=== PATIENT | male | born 1940 | race Caucasian/White ===

== ENCOUNTER 2018-05-03 09:00 | Outpatient (CLI) | payer MEDICARE, BC, SELFPAY | END 2018-05-03 09:01 | PROVIDERS: PCP Family Medicine; Visit Provider Urology | DX: C67.6 Malignant neoplasm of ureteric orifice (principal); C68.9 Malignant neoplasm of urinary organ, unspecified | CPT/HCPCS: 51720; 81003; J9031 ==

== ENCOUNTER 2018-05-10 08:00 | Outpatient (CLI) | payer MEDICARE, BC, SELFPAY | END 2018-05-10 08:01 | PROVIDERS: PCP Family Medicine; Visit Provider Urology | DX: C67.6 Malignant neoplasm of ureteric orifice (principal); N30.00 Acute cystitis without hematuria | CPT/HCPCS: 81001; 99212 ==

== ENCOUNTER 2018-05-17 08:00 | Outpatient (CLI) | payer MEDICARE, BC, SELFPAY | END 2018-05-17 08:01 | PROVIDERS: PCP Family Medicine; Visit Provider Urology | DX: R35.0 Frequency of micturition (principal); R39.15 Urgency of urination; C67.6 Malignant neoplasm of ureteric orifice | CPT/HCPCS: 51701; 51720; 81003; 99212 ==

== ENCOUNTER 2018-05-23 08:30 | Outpatient (CLI) | payer MEDICARE, BC, SELFPAY | END 2018-05-23 08:31 | PROVIDERS: PCP Family Medicine; Visit Provider Nurse Practitioner Gerontology | DX: C67.6 Malignant neoplasm of ureteric orifice (principal); R39.15 Urgency of urination | CPT/HCPCS: 51720; 81003; 99213 ==

== ENCOUNTER 2018-06-11 11:25 | Outpatient (REF) | payer MEDICARE, BC, SELFPAY | END 2018-06-11 11:45 | LOC: LBN 11:25 | PROVIDERS: PCP Family Medicine; Visit Provider Urology | DX: R30.0 Dysuria (principal) | CPT/HCPCS: 87086 ==

== ENCOUNTER → 2018-06-20 11:35 | Outpatient (BNVA) | payer MEDICARE, BC, SELFPAY | PROVIDERS: PCP Family Medicine; Visit Provider Urology | DX: R35.0 Frequency of micturition (principal) | CPT/HCPCS: 51798; 81001; 99213 ==

== ENCOUNTER 2018-06-20 13:18 | Outpatient (REF) | payer MEDICARE, BC, SELFPAY | END 2018-06-20 13:38 | LOC: LBN 13:18 | PROVIDERS: PCP Family Medicine; Visit Provider Urology | DX: R35.0 Frequency of micturition (principal) | CPT/HCPCS: 87086 ==

== ENCOUNTER → 2018-07-19 08:36 | Outpatient (BNVA) | payer MEDICARE, BC, SELFPAY | PROVIDERS: PCP Family Medicine; Visit Provider Urology | DX: C67.6 Malignant neoplasm of ureteric orifice (principal) | CPT/HCPCS: 52000; 99213 ==

== ENCOUNTER → 2018-08-27 09:20 | Outpatient (BNVA) | payer MEDICARE, BC, SELFPAY | PROVIDERS: PCP Family Medicine; Visit Provider Urology | DX: C67.6 Malignant neoplasm of ureteric orifice (principal) | CPT/HCPCS: 51720; 81003; 99212; 99213; J9031 ==

== ENCOUNTER → 2018-09-03 08:27 | Outpatient (BNVA) | payer MEDICARE, BC, SELFPAY | PROVIDERS: PCP Family Medicine; Visit Provider Urology | DX: N39.0 Urinary tract infection, site not specified (principal); C67.6 Malignant neoplasm of ureteric orifice; R88.8 Abnormal findings in other body fluids and substances; Z53.8 Procedure and treatment not carried out for other reasons | CPT/HCPCS: 81003; 99212; 99213 ==

== ENCOUNTER 2018-09-03 13:19 | Outpatient (REF) | payer MEDICARE, BC, SELFPAY | END 2018-09-03 13:39 | LOC: LBN 13:19 | PROVIDERS: PCP Family Medicine; Visit Provider Urology | DX: N39.0 Urinary tract infection, site not specified (principal) | CPT/HCPCS: 87077; 87086; 87186 ==

== ENCOUNTER → 2018-09-10 08:04 | Outpatient (BNVA) | payer MEDICARE, BC, SELFPAY | PROVIDERS: PCP Family Medicine; Visit Provider Urology | DX: C67.6 Malignant neoplasm of ureteric orifice (principal) | CPT/HCPCS: 51720; 81003; 99212; 99213; J9031 ==

== ENCOUNTER 2018-09-17 13:27 | Outpatient (CLI) | payer MEDICARE, BC, SELFPAY | END 2018-09-17 13:47 | PROVIDERS: PCP Family Medicine; Visit Provider Urology | DX: C67.6 Malignant neoplasm of ureteric orifice (principal) | CPT/HCPCS: 51720; 81003; 99212; 99213; J9031 ==

== ENCOUNTER → 2019-03-06 13:36 | Outpatient (BNVA) | payer MEDICARE, BC, SELFPAY | PROVIDERS: PCP Family Medicine; Visit Provider Urology | DX: C67.6 Malignant neoplasm of ureteric orifice (principal); I10 Essential (primary) hypertension | CPT/HCPCS: 52000; 99212 ==

== ENCOUNTER 2019-03-12 07:11 | Outpatient (CLI) | payer MEDICARE, BC, SELFPAY | END 2019-03-12 07:31 | PROVIDERS: PCP Family Medicine; Visit Provider Urology | DX: N30.00 Acute cystitis without hematuria (principal); C67.6 Malignant neoplasm of ureteric orifice; R35.0 Frequency of micturition | CPT/HCPCS: 87077; 87086; 87186 ==

== ENCOUNTER 2019-04-07 08:57 | Day surgery (SDC) | payer MEDICARE, BC, SELFPAY ==
[2019-04-07 09:14] VITALS: BP 152/90; PULSE 66; RESP 18; TEMP 36.3; O2SAT 99
[2019-04-07] MEDS: Lactated Ringers 1,000 ML 80 ML IV (09:45)
--- NOTE | 2019-04-07 09:50 | W.PM.HP.N ---
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 History of Present Illness Chief Complaint: Bladder cancer Narrative: This is a 78-year-old gentleman who was initially seen for urinary retention. He underwent a transurethral resection of the prostate. He was able to void well after the procedure. The preop hydronephrosis resolved. He then developed gross hematuria about a year later. 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 He was treated with a transurethral resection followed by intravesical BCG. He is now followed with surveillance cystoscopies. On his most recent cystoscopy in the office we did find a recurrence at the bladder neck. He comes in to have this area resected. He is not having any gross hematuria. He has no retention. Review of Systems Review of Systems No fevers or chills No vision change or dysphasia No diabetes or thyroid dysfunction No shortness of breath, cough or hemoptysis No chest pain or palpitations No nausea, vomiting, hepatitis, ulcers, jaundice, diarrhea or constipation No seizures, strokes or peripheral neuropathy No bleeding disorders or anemia No gout PFSH Family History Other Diabetes Heart disease Lupus Social History Smoking/Tobacco Use Status: Former Tobacco Use Quit Date: 10/01/88 Alcohol Intake: current Alcohol Intake frequency: 0-2 drinks per day Alcohol type: wine and hard liquor Drug use: Never Substance use type: does not use Details: alcohol: t-1, 5164 wine Do you feel safe at home: Yes Do you feel safe in your relationship?: Yes Meds Home Medications Medication Instructions Recorded Confirmed Type atenolol 50 mg PO DAILY tab-cap 03/10/16 04/07/19 History atorvastatin 40 mg PO DAILY tab-cap 03/10/16 04/07/19 History sertraline 50 mg PO DAILY tab-cap 04/13/16 04/07/19 History cholecalciferol (vitamin D3) 1,000 unit PO DAILY 05/01/17 04/07/19 History ibuprofen 400 mg PO PRN PRN 05/01/17 04/07/19 History aspirin 81 mg PO DAILY tab-cap 05/23/18 04/07/19 History yrrmfhmg-xouzj-mxw 2-C-D3-earnestine 1 ea PO DAILY 05/23/18 04/07/19 History [Clwbuxrgvi-Ghzpjvgwnjd-Mpm Tab] meloxicam 15 mg PO DAILY 03/31/19 04/07/19 History acetaminophen [Tylenol Arthritis 1,300 mg PO ONCE 04/07/19 04/07/19 History Pain] Allergies Allergy/AdvReac Type Severity Reaction Status Date / Time lisinopril AdvReac Other (See Verified 04/07/19 09:09 Comment) Exam Narrative Exam Narrative: He is in no current distress. He is cooperative. He does not appear septic or toxic. His vital signs are documented elsewhere in the chart. His neck is supple His lungs are clear Cardiac regular rate and rhythm with no murmurs His abdomen is soft with no guarding or rebound tenderness He has no edema in the lower extremities He is awake, alert and oriented Results Last Vital Signs Temp 36.3 C L 04/07/19 09:14 Pulse 66 04/07/19 09:14 Resp 18 04/07/19 09:14 BP 152/90 H 04/07/19 09:14 Pulse Ox 99 04/07/19 09:14
--- NOTE | 2019-04-07 09:54 | HPE_ITS ---
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 History of Present Illness Chief Complaint: Bladder cancer Narrative: This is a 78-year-old gentleman who was initially seen for urinary retention. He underwent a transurethral resection of the prostate. He was able to void well after the procedure. The preop hydronephrosis resolved. He then developed gross hematuria about a year later. 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 He was treated with a transurethral resection followed by intravesical BCG. He is now followed with surveillance cystoscopies. On his most recent cystoscopy in the office we did find a recurrence at the bladder neck. He comes in to have this area resected. He is not having any gross hematuria. He has no retention. Review of Systems Review of Systems No fevers or chills No vision change or dysphasia No diabetes or thyroid dysfunction No shortness of breath, cough or hemoptysis No chest pain or palpitations No nausea, vomiting, hepatitis, ulcers, jaundice, diarrhea or constipation No seizures, strokes or peripheral neuropathy No bleeding disorders or anemia No gout PFSH Family History Other Diabetes Heart disease Lupus Social History Smoking/Tobacco Use Status: Former Tobacco Use Quit Date: 10/01/88 Alcohol Intake: current Alcohol Intake frequency: 0-2 drinks per day Alcohol type: wine and hard liquor Drug use: Never Substance use type: does not use Details: alcohol: t-1, 0204 wine Do you feel safe at home: Yes Do you feel safe in your relationship?: Yes Meds Home Medications Medication Instructions Recorded Confirmed Type atenolol 50 mg PO DAILY tab-cap 03/10/16 04/07/19 History atorvastatin 40 mg PO DAILY tab-cap 03/10/16 04/07/19 History sertraline 50 mg PO DAILY tab-cap 04/13/16 04/07/19 History cholecalciferol (vitamin D3) 1,000 unit PO DAILY 05/01/17 04/07/19 History ibuprofen 400 mg PO PRN PRN 05/01/17 04/07/19 History aspirin 81 mg PO DAILY tab-cap 05/23/18 04/07/19 History swbjnrps-cbwxv-wgc 2-C-D3-earnestine 1 ea PO DAILY 05/23/18 04/07/19 History [Cfhvrhbwby-Tgjdxvktjse-Vxs Tab] meloxicam 15 mg PO DAILY 03/31/19 04/07/19 History acetaminophen [Tylenol Arthritis 1,300 mg PO ONCE 04/07/19 04/07/19 History Pain] Allergies Allergy/AdvReac Type Severity Reaction Status Date / Time lisinopril AdvReac Other (See Verified 04/07/19 09:09 Comment) Exam Narrative Exam Narrative: He is in no current distress. He is cooperative. He does not appear septic or toxic. His vital signs are documented elsewhere in the chart. His neck is supple His lungs are clear Cardiac regular rate and rhythm with no murmurs His abdomen is soft with no guarding or rebound tenderness He has no edema in the lower extremities He is awake, alert and oriented Results Last Vital Signs Temp 36.3 C L 04/07/19 09:14 Pulse 66 04/07/19 09:14 Resp 18 04/07/19 09:14 BP 152/90 H 04/07/19 09:14 Pulse Ox 99 04/07/19 09:14
--- NOTE | 2019-04-07 10:04 | W.PM.DSUDISC ---
Discharge Plan Disposition Patient Disposition: HOME Condition: Stable Discharge Details Reason For Visit: surgery Attending Provider: Hector Rodriguez Primary Care Provider: Chapo Menon Home Meds and New Rx's Prescriptions: No Action ciprofloxacin HCl 500 mg tablet 500 mg PO Q12H Qty: 20 RF: 0 atorvastatin 40 MG tablet 40 mg PO DAILY RF: 0 atenolol 25 MG tablet 50 mg PO DAILY RF: 0 sertraline 50 MG tablet 50 mg PO DAILY RF: 0 aspirin 81 MG tablet,chewable 81 mg PO DAILY RF: 0 Kqvwivgb-Nparei-KTS with vit D 1 EACH tablet 1 ea PO DAILY RF: 0 ibuprofen 200 MG tablet 400 mg PO PRN PRNRF: 0 cholecalciferol (vitamin D3) 1,000 UNIT tablet 1,000 unit PO DAILY RF: 0 meloxicam 15 mg Tablet 15 mg PO DAILY RF: 0 acetaminophen [Tylenol Arthritis Pain] 650 mg Tablet Extended Release 1,300 mg PO ONCE RF: 0 Discharge Instructions Additional Instructions: no F/U appt to schedule but ask pt to call us in @ 1 week to review pathology results - his F/U appt timing will depend on pathology script for Cipro sent to pharmacy - ask pt to take for 2 days post procedure pt must void prior to discharge Activity:: Activity as Tolerated Shower/Bathe:: 24 hours Diet:: As Tolerated Discharge Orders Discharge Orders: Discharge Order (Routine); Ordered 04/07/19 Ordered By: Hector Rodriguez DS: Diagnosis Discharge Diagnosis (1) 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
[2019-04-07] MEDS: ceFAZolin 1 GM/50 ML BAG IVPB (10:19)
[2019-04-07] MEDS: Lidocaine 2% Jelly 6 ML SYR (10:41)
--- NOTE | 2019-04-07 10:47 | BLADDER_PTH ---
PATIENT: Danny Piper LOC: [facility] U#:[id number] AGE/SX: 78/M ROOM: RE04/07/[address]: Hector Rodriguez MD : 1940 BED: DIS: 04/07/2019 SPEC #: [id number] RECD: 04/07/19 12:44 STATUS: YOLIS REQ #: [id number] LARISA: 04/07/19 10:[address]: Hector Rodriguez DEPT: Surgical Specimen RECD BY: Leny Chowdhury ENTERED: 04/07/19 12:46 SP TYPE: Bladder OTHR DR: Chapo Menon Tissues: 1 - URETHRA BIOPSY 2 - BLADDER CURRETTINGS Procedures: GROSS AND MICRO LEVEL 4 Comments: [id number]
[2019-04-07 11:11] VITALS: BP 153/72; PULSE 64; RESP 13; TEMP 36.1; O2SAT 98
[2019-04-07 11:16] VITALS: BP 162/72; PULSE 65; RESP 13; TEMP 36.2; O2SAT 97
[2019-04-07 11:21] VITALS: BP 162/75; PULSE 69; RESP 13; TEMP 36.2; O2SAT 97
[2019-04-07 11:36] VITALS: BP 166/85; PULSE 69; RESP 13; TEMP 36.2; O2SAT 98
[2019-04-07] MEDS: Phenazopyridine 200 MG TAB PO (11:57)
[2019-04-07 12:16] VITALS: BP 156/86; PULSE 63; RESP 16; TEMP 35.7; O2SAT 100
--- NOTE | 2019-04-07 12:48 | ROE_ITS ---
DATE OF PROCEDURE: April 07, 2019 PREOPERATIVE DIAGNOSIS: Bladder tumor. POSTOPERATIVE DIAGNOSIS: Same with pathology pending. PROCEDURE: Cystoscopy; biopsy of urethral lesion; fulguration of urethral lesion; transurethral rese ction of prostate and bladder lesions. SURGEON: Hector Rodriguez M.D. ANESTHESIA: General. COMPLICATIONS: None. ESTIMATED BLOOD LOSS: Minimal. SPECIMENS: 1. Urethral lesion. 2. Bladder/prostate lesion. HISTORY: This is a 78-year-old gentleman who initially presented with urinary retention and obstruct jose uropathy. He underwent a transurethral resection of the prostate and his voiding symptoms improv ed. He then returned with gross hematuria about a year later. He was identified as having a high-grade, noninvasive urothelial cell carcinoma of the bladder. He underwent intravesical BCG treatment. He i s followed with surveillance cystoscopies. On his most-recent cystoscopy we identified a small papillary lesion at the bladder neck. He present s now for transurethral resection. OPERATIVE REPORT: The patient was brought to the Operating Room on 04/07/19. After successful inducti on of general anesthesia, he was placed in the dorsal lithotomy position. His genitalia was prepped and draped. 2% Xylocaine jelly was instilled into the urethra to act as a local anesthetic. A 22 [place] rigid cystoscope was passed through the urethra toward the bladder. In the region of the membranous urethra, a papillary lesion was identified. This had an appearance worrisome for urothel ial cell carcinoma. We biopsied the area with cold cut biopsy forceps, then fulgurated the area with a bipolar Bugbee. We then advanced the cystoscope through the remainder of the urethra into the bladder. There appeare d to be papillary mucosa on the prostatic urethra, especially on the left side of the prostate. Just inside the bladder neck at the 5 o'clock position was a small papillary lesion as well. We then removed the cystoscope and introduced a 24 [place] resectoscope sheath. We used an [employer] r esectoscope and bipolar cautery to resect the visible papillary lesion at the bladder and prostate. Both the bladder and prostate tissue were sent to Pathology in one specimen. The base of the resection site was cauterized using the coagulation current. The patient tolerated t his procedure well with no complications. His follow-up will depend on his surgical pathology. cc: Chapo Menon M.D.
--- NOTE | 2019-04-07 14:57 | NUR.NOTE ---
Nursing Note: 1455: Pt. called [facility], spoke to REENA Woods. Pt. reports he was re-ended on his way home and states his back is sore, pt. asking if he can take oxycodone from a prior procedure for the pain. Nursing instructed pt. to go to ER, pt. refused, stating it was not necessary. Nursing explained they are not qualified to advise him about the pain medication. Pt. agreeable to phone call being transferred to [facility] where he could speak to urology. Nursing called up to clinic, spoke to Dayana, who stated she would speak with pt. Call transferred to clinic.
== END 2019-04-07 12:39 | disposition home or self-care (01) ==
PROVIDERS: PCP Family Medicine; Visit Provider Urology
PROC: 0TBB8ZX Excision of Bladder, Via Natural or Artificial Opening Endoscopic, Diagnostic (ICD-10-PCS; CPT 52204; principal; 2019-04-07 10:00)
DX: C68.0 Malignant neoplasm of urethra (principal); C67.5 Malignant neoplasm of bladder neck; I10 Essential (primary) hypertension; I49.9 Cardiac arrhythmia, unspecified
CPT/HCPCS: 52224; 52500; 88305; NC; 88307; 93005; 93010; J0690; J1100; J1885; J2405; J3010

== ENCOUNTER → 2019-07-24 13:08 | Outpatient (BNVA) | payer MEDICARE, BC, SELFPAY | PROVIDERS: PCP Family Medicine; Referring Provider Family Medicine; Visit Provider Urology | DX: N36.9 Urethral disorder, unspecified (principal) | CPT/HCPCS: 81003; 99212 ==

== ENCOUNTER → 2019-09-16 08:16 | Outpatient (BNVA) | payer MEDICARE, BC, SELFPAY | PROVIDERS: PCP Family Medicine; Referring Provider Family Medicine; Visit Provider Urology | DX: C67.6 Malignant neoplasm of ureteric orifice (principal); N36.9 Urethral disorder, unspecified; I10 Essential (primary) hypertension | CPT/HCPCS: 52000; 99213 ==

== ENCOUNTER 2019-09-18 08:08 | Day surgery (SDC) | payer MEDICARE, BC, SELFPAY ==
[2019-09-18 08:27] VITALS: BP 136/79; PULSE 65; RESP 16; TEMP 36.6; O2SAT 96
[2019-09-18] MEDS: Lactated Ringers 1,000 ML 80 ML IV (09:01)
--- NOTE | 2019-09-18 10:41 | W.PM.HP.N ---
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 He has had intravesical BCG in the past. He had a surveillance cystoscopy in the office and we detected papillary lesions by the right ureteral orifice, on the anterior portion of the prostate and in the urethra. he presents for TURBT. He has had some bloody spotting on his undershorts. Review of Systems Narrative: No fevers or chills No vision change or dysphasia No thyroid dysfunction No shortness of breath, cough or hemoptysis No chest pain or palpitations No nausea, vomiting, hepatitis, ulcers, jaundice, diarrhea or constipation No seizures, strokes or peripheral neuropathy No bleeding disorders or anemia No gout PFSH Surgical History (Updated 09/18/19 @ 08:24 by Nataliia Cosme RN) History of arthroscopy of knee (Acute) bilat History of cardiac catheterization (Chronic) History of cataract surgery (Chronic) History of colonoscopy (Chronic) History of tonsillectomy (Chronic) & adnoids x2, then burnt out with [place]. Social History (Updated 07/19/18 @ 08:49 by Dayana Christine RN) Smoking/Tobacco Use Status: Former Tobacco Use Quit Date: 10/01/88 Alcohol Intake: current Alcohol Intake frequency: 0-2 drinks per day Alcohol type: wine and hard liquor Drug use: Never Substance use type: does not use Details: tried Hemp oil, Pt states wasn't helpful. Do you feel safe at home: Yes Do you feel safe in your relationship?: Yes Meds Home Medications and Allergies Home Medications Medication Instructions Recorded Confirmed Type atenolol 50 mg PO DAILY tab-cap 03/10/16 09/18/19 History atorvastatin 40 mg PO DAILY tab-cap 03/10/16 09/18/19 History sertraline 50 mg PO DAILY tab-cap 04/13/16 09/18/19 History meloxicam 15 mg PO DAILY 03/31/19 09/18/19 History acetaminophen [Tylenol Arthritis 1,300 mg PO ONCE 04/07/19 09/18/19 History Pain] Allergies Allergy/AdvReac Type Severity Reaction Status Date / Time lisinopril AdvReac Other (See Verified 09/18/19 08:23 Comment) Exam Const General: cooperative and comfortable Neck Neck: supple Resp Auscultation: clear to auscultation bilaterally Cardio Rate: regular rate Rhythm: regular rhythm GI Inspection: normal to inspection Palpation: soft and no masses Extrem General: no pedal edema Results Last Vital Signs Temp 36.6 C 09/18/19 08:27 Pulse 65 09/18/19 08:27 Resp 16 09/18/19 08:27 BP 136/79 09/18/19 08:27 Pulse Ox 96 09/18/19 08:27
[2019-09-18] MEDS: ceFAZolin 2 GM/50 ML BAG IVPB (11:06)
[2019-09-18] MEDS: Lidocaine 2% Jelly 6 ML SYR (11:20)
--- NOTE | 2019-09-18 11:30 | BLADDER_PTH ---
PATIENT: Danny Piper LOC: [facility] U#:[id number] AGE/SX: 78/M ROOM: RE09/18/[address]: Hector Rodriguez MD : 1940 BED: DIS: 09/18/2019 SPEC #: [id number] RECD: 09/18/19 13:09 STATUS: YOLIS REQ #: [id number] LARISA: 09/18/19 11:[address]: Hector Rodriguez DEPT: Surgical Specimen RECD BY: Leny Chowdhury ENTERED: 09/18/19 13:10 SP TYPE: Bladder OTHR DR: Chapo Menon Tissues: 1 - BLADDER CURRETTINGS 2 - URETHRA BIOPSY 3 - URETHRA BIOPSY Procedures: IMMUNOPEROXIDASE STAIN GROSS AND MICRO LEVEL 5 Comments: [id number]
--- NOTE | 2019-09-18 11:54 | PDOC.DSDIS_ITS ---
Discharge Plan Disposition Patient Disposition: HOME Condition: Stable Discharge Details Attending Provider: Hector Rodriguez Primary Care Provider: Chapo Menon Home Meds and New Rx's Prescriptions: New ciprofloxacin HCl 250 mg tablet 250 mg PO Q12H Qty: 10 RF: 0 tramadol 50 mg tablet 50 mg PO Q8H PRN (Reason: pain) Qty: 10 RF: 0 No Action atorvastatin 40 MG tablet 40 mg PO DAILY RF: 0 atenolol 25 MG tablet 50 mg PO DAILY RF: 0 sertraline 50 MG tablet 50 mg PO DAILY RF: 0 meloxicam 15 mg Tablet 15 mg PO DAILY RF: 0 acetaminophen [Tylenol Arthritis Pain] 650 mg Tablet Extended Release 1,300 mg PO ONCE RF: 0 Discharge Instructions Additional Instructions: grier to leg bag - inform pt he may see bloody drainage around catheter as his urethra heals f/u for catheter removal in 5 to 7 days Pt is going to [place] toward the end of next week, so he will call us for his pathology results Activity:: Activity as Tolerated Shower/Bathe:: 24 hours Diet:: As Tolerated Discharge Orders Discharge Orders: Discharge Order (Routine); Ordered 09/18/19 Ordered By: Hector Rodriguez DS: Diagnosis Discharge Diagnosis (1) 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
[2019-09-18 12:25] VITALS: BP 146/85; PULSE 57; RESP 16; TEMP 35.9; O2SAT 57
[2019-09-18] MEDS: Phenazopyridine 200 MG TAB PO (12:41)
[2019-09-18 13:00] VITALS: BP 137/80; PULSE 55; RESP 16; TEMP 36.6; O2SAT 99
--- NOTE | 2019-09-19 08:15 | ROE_ITS ---
DATE OF PROCEDURE September 18, 2019 PREOPERATIVE DIAGNOSES 1. Bladder cancer. 2. Prostate lesion. 3. Urethral lesion. POSTOPERATIVE DIAGNOSES 1. Bladder cancer. 2. Prostate lesion. 3. Urethral lesion. PROCEDURES 1. Cystoscopy, transurethral resection of bladder tumor (2 to 5 cm). 2. Transurethral resection of prostate lesion. 3. Transurethral resection of urethral lesion. SURGEON Hector Rodriguez M.D. ANESTHESIA General. COMPLICATIONS None. ESTIMATED BLOOD LOSS Minimal. HISTORY This is a 78-year-old gentleman who has a history of high grade noninvasive urothelial cell carcinoma of the bladder. He was treated with transurethral resection, but has also received intravesical BCG therapy. On recent cystoscopy, he was found to have recurrent lesions on the right isaiah-trigone on the anterio r aspect of the prostate and in the membranous urethra. He presents now for cystoscopy with transuret hral resection. OPERATIVE REPORT: The patient was brought to the Operating Room on 09/18/19. After successful induction of general ane sthesia, he was placed in the dorsal lithotomy position. His genitalia was prepped and draped. A #24 Wol[place] resectoscope sheath was passed through the urethra into the bladder. The bladder was ins pected with a 30-degree lens. Multiple papillary lesions were seen on the right isaiah trigone. These areas were resected using bipol ar cautery. All resected tissue was evacuated and sent to Pathology for permanent section. We then withdrew the scope into the prostatic urethra. The previously identified papillary lesion on the anterior aspect of the prosthetic urethra was likewise resected using bipolar cautery. These spec imens were sent separately to Pathology for permanent section. The resectoscope was then withdrawn into the membranous urethra. The papillary lesion was again visua lized. This lesion was resected. The specimens were evacuated and sent separately as a third specimen for Pathology. No active bleeding was seen at the completion of the procedure, but in an effort to allow his urethra to heal appropriately, we placed a #20-Wolof [place] tip catheter over a Glidewire. We advanced the catheter through the urethra into the bladder and inflated the catheter balloon with 10 cc of steril e water. The wire was removed. The catheter was hooked to gravity drainage. The patient tolerated this procedure well with no complications. cc: Chapo Menon M.D.
== END 2019-09-18 14:00 | disposition home or self-care (01) ==
PROVIDERS: PCP Family Medicine; Visit Provider Urology
PROC: 0TBB8ZZ Excision of Bladder, Via Natural or Artificial Opening Endoscopic (ICD-10-PCS; CPT 52235; principal; 2019-09-18 10:45)
DX: C67.6 Malignant neoplasm of ureteric orifice (principal); N36.9 Urethral disorder, unspecified; C61 Malignant neoplasm of prostate; C68.0 Malignant neoplasm of urethra
CPT/HCPCS: 52235; 53200; 88305; NC; 88307; 88361; J0690

== ENCOUNTER → 2019-09-25 08:41 | Outpatient (BNVA) | payer MEDICARE, BC, SELFPAY | PROVIDERS: PCP Family Medicine; Referring Provider Family Medicine; Visit Provider Urology | DX: Z46.6 Encounter for fitting and adjustment of urinary device (principal); C67.6 Malignant neoplasm of ureteric orifice; N36.9 Urethral disorder, unspecified | CPT/HCPCS: 99211 ==

== ENCOUNTER 2021-04-15 03:46 | Outpatient (CLI) | payer MEDICARE, BC, SELFPAY ==
[2021-04-15 09:07] LABS: Abs Immature Grans 0.04 10^3/uL (0.0-0.06); Absolute Basophil Count 0.06 10^3/uL (0.0-0.2); Absolute Eosinophil Count 0.25 10^3/uL (0.0-0.7); Absolute Lymphocyte Count 1.81 10^3/uL (1.2-3.4); Absolute Monocyte Count 0.76 10^3/uL (0.1-0.8); Absolute Neutrophil Count 6.59 10^3/uL (1.2-6.7); Basophils % 0.6; Eosinophils % 2.6; HCT 31.8 % (40.0-50.0); HGB 10.7 g/dL (13.5-17.5); Immature Grans % 0.4; MCH 32.9 pg (27.0-33.0); MCHC 33.6 % (32.0-36.0); MCV 97.8 fL (80-95); MPV 8.2 fL (8.0-11.0); Neutrophils % 69.4; Nucleated RBC 0 %; Platelet Count 237 10^3/uL (130-400); RBC 3.25 10^6/uL (4.36-5.78); RDW 12.8 % (11.8-14.1); RDW-SD 45.6 fL; WBC 9.51 10^3/uL (4.4-10.8)
[2021-04-15 09:21] LABS: ALT 30 U/L (16-63); AST 22 U/L (15-37); Albumin 3.1 g/dL (3.4-5.0); Alkaline Phosphatase 95 U/L (46-116); Anion Gap 10.1 mmol/L (3-11); BUN 32 mg/dL (7-18); Bilirubin, Total 0.6 mg/dL (0.2-1.0); CO2 24.9 mmol/L (21.0-32.0); CREATININE 1.2 mg/dL (0.70-1.30); Calcium 9.6 mg/dL (8.5-10.1); Chloride 104 mmol/L (98-107); Estimated GFR 58.56 (mL/min/1.73m2); Glucose 125 mg/dL (74-106); PHOSPHORUS 3.5 mg/dL (2.6-4.7); Potassium 4.1 mmol/L (3.5-5.1); Sodium 139 mmol/L (136-145); Total Protein 7.3 g/dL (6.4-8.2)
[2021-04-15 09:32] LABS: Diff Comment Diff Reviewed; Microcytosis 2+
== END 2021-04-15 03:47 | disposition home or self-care (01) ==
LOC: LBO 03:57
PROVIDERS: PCP Family Medicine; Visit Provider Internal Medicine
DX: C79.19 Secondary malignant neoplasm of other urinary organs (principal); Z79.899 Other long term (current) drug therapy
CPT/HCPCS: 36415; 80053; 84100; 85025

== ENCOUNTER 2021-05-13 03:12 | Outpatient (CLI) | payer MEDICARE, BC, SELFPAY ==
[2021-05-13 08:54] LABS: Abs Immature Grans 0.02 10^3/uL (0.0-0.06); Absolute Basophil Count 0.08 10^3/uL (0.0-0.2); Absolute Eosinophil Count 0.56 10^3/uL (0.0-0.7); Absolute Lymphocyte Count 1.85 10^3/uL (1.2-3.4); Absolute Monocyte Count 0.68 10^3/uL (0.1-0.8); Eosinophils % 7.3; HGB 10.5 g/dL (13.5-17.5); Immature Grans % 0.3; Lymphocytes % 24.1; MCHC 32.8 % (32.0-36.0); MCV 97.6 fL (80-95); Monocytes % 8.8; Neutrophils % 58.5; Nucleated RBC 0 %; Platelet Count 185 10^3/uL (130-400); RBC 3.28 10^6/uL (4.36-5.78); RDW 12.4 % (11.8-14.1); WBC 7.69 10^3/uL (4.4-10.8)
[2021-05-13 09:08] LABS: ALT 29 U/L (16-63); AST 24 U/L (15-37); Albumin 3.3 g/dL (3.4-5.0); Alkaline Phosphatase 84 U/L (46-116); Anion Gap 5.7 mmol/L (3-11); BUN 19 mg/dL (7-18); Bilirubin, Total 0.6 mg/dL (0.2-1.0); CO2 28.3 mmol/L (21.0-32.0); CREATININE 1.2 mg/dL (0.70-1.30); Calcium 9.1 mg/dL (8.5-10.1); Chloride 106 mmol/L (98-107); Estimated GFR 58.56 (mL/min/1.73m2); Glucose 111 mg/dL (74-106); PHOSPHORUS 5.6 mg/dL (2.6-4.7); Sodium 140 mmol/L (136-145); Total Protein 7.3 g/dL (6.4-8.2)
--- NOTE | 2021-05-13 10:00 | DI.CT_ITS ---
Exam(s) CT CHEST/ABD/PEL W EXAM: CT CHEST/ABD/PEL W CLINICAL HISTORY: METASTATIC UROTHELIAL CA, C79.10,RESTAGING EXAM TECHNIQUE: Imaging Protocol: Axial computed tomography images with coronal and sagittal reformatted images were created and reviewed CONTRAST MATERIAL: Intravenous: Omnipaque 350 Contrast volume:100 mL Oral: Yes COMPARISON: CT CT Guided DrainageCath Placement from 04/20/[address] TAP w Cont Mdspqx-Mxm-Bolwzw from 02/15/[address] TAP w Cont Humocn-Wnn-Yzhvjx from 02/15/2021 FINDINGS: CHEST: Tracheobronchial tree: Patent where visualized. Pulmonary parenchyma: No focal consolidation. There is a calcified granuloma again seen in the right upper lobe. There again seen noncalcified pulmonary nodules. There has been interval increase in size of 2 of the lesions in the right lower lobe since the prior examination. Dependent atelectasis is se en in the lungs. No architectural distortion. Visualized thyroid gland: Unremarkable. Mediastinum and [place]: No dominant adenopathy or fluid collection. Pleura: No effusion or pneumothorax. Heart: The heart is not dilated. Moderate coronary artery calcification. No pericardial effusion. Aorta: Thoracic aorta non-dilated. Moderate atherosclerosis. Lymph nodes: Within normal limits. Soft tissues: Unremarkable. Bones:Degenerative changes in the spine. ABDOMEN: Liver: Normal density. No measurable mass. Portal, Superior Mesenteric, and Splenic Veins: Unremarkable. Gallbladder and Biliary Tract: No radiodense calculus or dilation. Pancreas: Normal density, no abnormal calcifications or inflammatory process. Spleen: Normal. Adrenals: No masses seen. Kidneys: Normal size, contour and axis. No radiodense stones or obstructive uropathy. There are tiny hypodensities in the left kidney which are too small for further characterization, but likely reflect small cysts. Abdominal Aorta: Abdominal portion non-dilated. Moderate atherosclerosis. Bowel: No obstruction or bowel wall thickening. No evidence of appendicitis. Peritoneal Cavity: No ascites, collection or mesenteric inflammatory response. No free air. Lymph Nodes/soft tissues: Since the prior examination several masses have developed in the left ingui nal region. The largest measures 5.3 transverse by 5 cm AP there is a central area of decreased atte nuation which may represent necrosis. Eight 2 x 1.8 cm peripherally enhancing mass is seen within th e left tensor fascia april muscle. Three masses have developed in the right sartorius muscle. Larges t and most superior measures 2.3 x 3 cm. The fluid collection in the left inguinal region previously measuring 3.4 x 3.4 cm has slightly increased in size measuring 3.6 x 3.7 cm. Bones: Moderately severe degenerative changes are present throughout the lumbar spine. The bones jamee ears stable compared to the prior examination no acute fracture or subluxation there is a stable area of sclerosis involving the left inferior pubic ramus. Soft Tissues: Please see the above section on lymph nodes. The fluid collection anterior to the symp hysis pubis has shown interval increase in size currently measuring 3.1 x 2.7 cm. This compares with 2.3 x 2.1 cm. PELVIS: Bladder: Status post cystectomy. Patient has a ileal conduit in the right lower quadrant. Reproductive Organs: The patient appears to be status post prostatectomy. Lymph Nodes: Please see the above section. Bones: Please see the above section. IMPRESSION: 1. Interval development of multiple enhancing masses in the left inguinal region including the or joce rounding musculature. Differential considerations include metastases, adenopathy or hematomas. 2. Interval increase in size of 2 fluid collections in the soft tissues. One in the left inguinal reg ion and the 2nd anterior to the symphysis pubis. These may represent metastases, abscesses or hematom as. 3. Status post cystectomy and prostatectomy. Right lower quadrant ileal conduit. 4. Interval increase in size of pulmonary nodules. RADIATION DOSE DELIVERED: 1,981.88mGy.cm Total DLP DATA REPOSITORY: All CT scans at this facility are submitted to the National Radiology Data Registry (NRDR) Dose Index Registry (DIR) with the [employer] (A[employer]). RADIATION OPTIMIZATION: All CT scans at this facility use at least one of these dose optimization te chniques: automated exposure control; mA and/or kV adjustment per patient size (includes targeted exa ms where dose is matched to clinical indication); or iterative reconstruction.
[2021-05-13] MEDS: Omnipaque 350 MG/ML 100 ML BTL IJ (10:21)
[2021-05-13] MEDS: Breeza Beverage 473 ML BTL PO ×2 (10:22→10:23)
[2021-05-13] MEDS: Normal Saline - Diluent 50 ML VIAL IV (10:22)
[2021-05-13] MEDS: Normal Saline Flush 10 ML SYR IVP (10:23)
[2021-05-13] MEDS: Omnipaque 350 MG/ML 50 ML BTL PO (10:23)
== END 2021-05-13 03:32 ==
PROVIDERS: PCP Family Medicine; Visit Provider Internal Medicine
DX: C79.10 Secondary malignant neoplasm of unspecified urinary organs (principal); C80.1 Malignant (primary) neoplasm, unspecified; R91.8 Other nonspecific abnormal finding of lung field; M79.89 Other specified soft tissue disorders; R19.09 Other intra-abdominal and pelvic swelling, mass and lump; Z90.79 Acquired absence of other genital organ(s); Z90.6 Acquired absence of other parts of urinary tract; Z79.899 Other long term (current) drug therapy
CPT/HCPCS: 74177; 80053; 71260; 84100; 85025; J3490; Q9967

== ENCOUNTER 2021-06-19 10:03 | Emergency (ER) | payer MEDICARE, BC, SELFPAY ==
[2021-06-19 10:13] VITALS: BP 115/62; PULSE 75; RESP 18; O2SAT 99
--- NOTE | 2021-06-19 10:31 | W.ED.GENAD ---
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 Primary Care Provider: [facility] ED Provider: Haven Lazo Home Meds and New Rx's Prescriptions: New magnesium citrate Solution 150 ml PO BID PRNQty: 300 RF: 0 Continued atorvastatin 40 MG tablet 40 mg PO DAILY RF: 0 atenolol 25 MG tablet 25 mg PO DAILY RF: 0 sertraline 50 MG tablet 50 mg PO DAILY RF: 0 prochlorperazine maleate 10 mg tablet 10 mg PO Q6H PRN PRNRF: 0 gabapentin 100 mg capsule 100 mg PO TID RF: 0 acetaminophen [Tylenol Arthritis Pain] 650 mg Tablet Extended Release 1,300 mg PO ONCE RF: 0 Discharge Instructions Instructions: Constipation (ED) Additional Instructions: A prescription for magnesium citrate for constipation was sent electronically to your [facility] in [facility]. Continue taking your Colace and MiraLAX as directed for your constipation. You can also consider repeating an enema if you have no relief in the next 2 days. Call [facility] tomorrow morning to discuss your constipation to discuss whether this may be related to your recent chemotherapy medication if they have any recommendations before your second chemotherapy treatment next week. Also discuss with your oncologist Dr. Salinas regarding the enlargement of your known metastatic lesions in your left groin noted on CT scan today. Return immediately to the emergency department if you develop any worsening or new concerning symptoms. Discharge Data Discharge Date/Time-TO BE ENTERED AT DEPARTURE: 06/19/21 14:10 Discharge Physician: Haven Lazo Medical Decision Making 80-year-old male with a history of bladder cancer currently on chemotherapy followed at bladder cancer presents for constipation for the past 9 days. Denies any significant nausea, vomiting or abdominal pain. Vitals within normal limits. Patient appears comfortable and nontoxic. His abdomen is soft and nontender. He does have an area of erythematous induration to the left groin which she states is chronic secondary to his known metastatic lymph nodes. Patient expressed concern that his constipation is secondary to his new chemotherapy. He has not taken a narcotic. Considering his age and history, will obtain screening labs and a CT abdomen to rule out obstruction versus new mass potentially causing obstruction. Labs reviewed and unremarkable. Normal white blood cell count. CT abdomen and pelvis notes significant interval enlargement of multiple mass lesions in the left inguinal region since previous exam 1 month ago. These presumably are metastatic related to the patient's bladder cancer. There is no no acute intra-abdominal abnormality. Bedside rectal exam done which noted normal external and internal exam without rectal stool impaction, masses, fissures or thrombosed hemorrhoids. Stool is brown and trace guaiac positive. Discussed at length with patient that as it is reassuring he has no obstruction or infection noted on CT at this time, causes for constipation can be multiple including dehydration, decreased p.o. intake, medications, etc. He is advised to call [facility] tomorrow to discuss any recommendations. He is advised to continue his Colace and MiraLAX daily. A prescription for magnesium citrate was sent electronically to his pharmacy. Usual and customary return precautions given prior to discharge. Medical Records Medical records reviewed: Yes I reviewed the patient's medical records. Imaging Data Radiologic Study: Radiologist's impression: CT Abdomen And Pelvis With Contrast Exam date and time: 06/19/2021 11:27 AM Age: 80 years old Clinical indication: Other: Constipation, h/o bladder CA, R/O sbo, mass; Prior surgery; Surgery date: 6+ months TECHNIQUE: Imaging protocol: Computed tomography of the abdomen and pelvis with contrast. Radiation optimization: All CT scans at this facility use at least one of these dose optimization techniques: automated exposure control; mA and/or kV adjustment per patient size (includes targeted exams where dose is matched to clinical indication); or iterative reconstruction. Contrast material: OMNIPAQUE 350; Contrast volume: 100 ml; Contrast route: INTRAVENOUS (IV); COMPARISON: CT CHEST/ABD/PEL W 13/05/2021 10:24 FINDINGS: Lungs: Visualized lung bases are clear. Liver: Normal. No mass or intrahepatic biliary ductal dilatation. Gallbladder and bile ducts: Normal. No calcified stones. No ductal dilation. Pancreas: Normal. No mass or ductal dilation. Spleen: Normal. No splenomegaly. Adrenal glands: Normal. No mass. Kidneys and ureters: Normal. No hydronephrosis. Stomach and bowel: Unremarkable. No obstruction. No mucosal thickening or visible mass. There is an ileal conduit in the right lower quadrant. Appendix: No evidence of appendicitis. Intraperitoneal space: Unremarkable. No free air. No significant fluid collection. Vasculature: Aorta is atherosclerotic and ectatic with a maximal diameter of 2.4 cm. Lymph nodes: Multiple shotty retroperitoneal nodes measuring up to about 10 mm is present. There is no mesenteric adenopathy. Small pelvic lymph nodes measuring up to 10 mm are noted. Urinary bladder: Previous cystectomy. Reproductive: Unremarkable as visualized. Bones/joints: Unremarkable. No acute fracture. No lytic lesions to suggest bony metastasis. Soft tissues: There are multiple enhancing soft tissue masses in the left inguinal region. The largest of these measures about 8 cm. There has been significant interval enlargement since the patient's prior study from 05/13/2021. Thick-walled fluid collection measuring 5.7 cm present in the inferior inguinal region on the left. Multiple surgical clips present in the region. IMPRESSION: There has been significant interval enlargement of multiple mass lesions in the left inguinal region since previous exam 1 month ago. These presumably are metastatic related to the patient's bladder cancer. There is no new acute intra-abdominal abnormality. Lab Data Lab results reviewed: Yes I reviewed the patient's lab results. Labs: Laboratory Tests Range/Units 06/19/21 06/19/21 11:00 11:00 WBC (4.4-10.8) 10^3/uL 10.16 RBC (4.36-5.78) 10^6/uL 3.67 L Hgb (13.5-17.5) g/dL 11.4 L Hct (40.0-50.0) % 35.4 L MCV (80-95) fL 96.5 H MCH (27.0-33.0) pg 31.1 MCHC (32.0-36.0) % 32.2 RDW (11.8-14.1) % 12.8 Plt Count (130-400) 10^3/uL 202 MPV (8.0-11.0) fL 9.0 Immature Gran % 0.3 Neutrophils % 78.9 Lymphocytes % 10.2 Monocytes % 8.8 Eosinophils % 1.4 Basophils % 0.4 Nucleated RBC % % 0 Absolute Neutrophils (1.2-6.7) 10^3/uL 8.02 H Absolute Lymphocytes (1.2-3.4) 10^3/uL 1.04 L Absolute Monocytes (0.1-0.8) 10^3/uL 0.89 H Absolute Eosinophils (0.0-0.7) 10^3/uL 0.14 Absolute Basophils (0.0-0.2) 10^3/uL 0.04 Sodium (136-145) mmol/L 139 Potassium (3.5-5.1) mmol/L 3.4 L Chloride (98-107) mmol/L 102 Carbon Dioxide (21.0-32.0) mmol/L 31.0 Anion Gap (3-11) mmol/L 6.0 BUN (7-18) mg/dL 21 H Creatinine (0.70-1.30) mg/dL 1.1 Estimated GFR/1.73 m2 (mL/min/1.73m2) >= 60.00 Glucose (74-106) mg/dL 120 H Calcium (8.5-10.1) mg/dL 9.2 Total Bilirubin (0.2-1.0) mg/dL 0.7 AST (15-37) U/L 26 ALT (16-63) U/L 29 Alkaline Phosphatase (46-116) U/L 85 Total Protein (6.4-8.2) g/dL 7.5 Albumin (3.4-5.0) g/dL 2.9 L HPI General Mode of arrival: ambulatory. Date/Time Provider Initiated Documentation: 06/19/21 10:22. Limitations to Documentation: no limitations. Information obtained by: patient. HPI Narrative: Patient is a 80-year-old male with a history of bladder cancer currently on chemotherapy and followed at [facility] presents with constipation for the past 9 days. He states he usually has diarrhea, specifically after a recent chemotherapy treatment but states he has had constipation for the past 9 days. He states he has had small amount of brown-colored stool yesterday and today. He does admit to occasional bright red blood mixed with stool. He does have occasional abdominal pain associated with his bladder cancer but denies any worsening of this at this time. Denies fever, nausea, vomiting. He has not taken any narcotic pain medication. Related Data Home Medications Medication Instructions Recorded Confirmed atenolol 25 mg PO DAILY tab-cap 03/10/16 06/19/21 atorvastatin 40 mg PO DAILY tab-cap 03/10/16 06/19/21 sertraline 50 mg PO DAILY tab-cap 04/13/16 06/19/21 acetaminophen [Tylenol Arthritis 1,300 mg PO ONCE 04/07/19 06/19/21 Pain] gabapentin 100 mg PO TID 06/19/21 06/19/21 magnesium citrate 150 ml PO BID PRN #300 ml 06/19/21 prochlorperazine maleate 10 mg PO Q6H PRN PRN 06/19/21 06/19/21 Previous Rx's Medication Instructions Recorded magnesium citrate 150 ml PO BID PRN #300 ml 06/19/21 Allergies Allergy/AdvReac Type Severity Reaction Status Date / Time lisinopril AdvReac pt reports Verified 06/19/21 10:58 elevated potassium General Stated Complaint: Abd Prob YAZ: 3 Review of Systems All systems reviewed & are unremarkable except as noted in HPI and below Constitutional Constitutional: Reports as per HPI, Denies chills and Denies fever(s) Eyes Eyes: Denies blurry vision ENT Ears, Nose, Mouth, and Throat: Denies dizziness, Denies sore throat and Denies throat swelling Cardiovascular Cardiovascular: Denies chest pain and Denies dyspnea Respiratory Respiratory: Denies cough and Denies dyspnea Gastrointestinal Gastrointestinal: Denies abdominal pain, Reports constipation, Denies diarrhea and Denies vomiting Genitourinary Genitourinary: Denies hematuria and Denies dysuria Musculoskeletal Musculoskeletal: Denies back pain and Denies numbness Integumentary/Breasts Skin/Breast: Denies lesions and Denies rash Neurologic Neurologic: Denies dizziness, Denies localized weakness and Denies numbness Allergic/Immunologic Allergic/Immunologic: Denies throat swelling [facility] Medical History (Updated 06/19/21 @ 13:40 by Haven Lazo DO) Angina pectoris BPH (benign prostatic hyperplasia) Coronary artery disease History of snoring Hypertension Urethral lesion Surgical History (Updated 09/18/19 @ 08:24 by Nataliia Cosme RN) History of arthroscopy of knee bilat History of cardiac catheterization History of cataract surgery History of colonoscopy History of tonsillectomy & adnoids x2, then burnt out with [place]. Family History Other Diabetes Heart disease Lupus Social History (Updated 07/19/18 @ 08:49 by Dayana Christine RN) Smoking/Tobacco Use Status: Former Tobacco Use Quit Date: 10/01/88 Smoking risk assessment performed?: Yes Alcohol Intake: current Alcohol Intake frequency: 0-2 drinks per day Alcohol type: wine and hard liquor Drug use: Never Substance use type: does not use Details: tried Hemp oil, Pt states wasn't helpful. Do you feel safe at home: Yes Do you feel safe in your relationship?: Yes Exam Const General: cooperative and no acute distress HENMT Head: normal to inspection Face and sinus: normal facial exam Eyes General: appearance normal, both eyes and all related structures EOM: EOM intact bilaterally Neck Neck: normal visual inspection and No submandibular swelling Lymphatic: no lymphadenopathy noted Chest Chest: normal inspection of the chest and no tenderness Resp Effort & Inspection: normal respiratory effort and able to speak in complete sentences Auscultation: clear to auscultation bilaterally Cardio Rate: regular rate Rhythm: regular rhythm GI Inspection: normal to inspection Palpation: soft, not firm, not rigid and nontender Auscultation: normal bowel sounds Other: Ostomy bag right lower quadrant with yellow urine in bag There is a 4 x 3 cm area erythematous induration in the left groin. No fluctuance. No drainage or bleeding. Skin General skin exam: no rashes or lesions noted Neuro General: patient alert, patient awake and patient oriented x3 Cognition: normal cognition Speech: speech normal Motor: muscle tone normal throughout Sensory Exam: no sensory deficits noted Extrem General: normal to inspection, full ROM, capillary refill normal, no calf tenderness bilaterally and no edema Psych Appearance: grossly normal Mental Status: mental status grossly normal Speech and Movement: speech and movement normal Affect: normal affect Course Vital Signs Vital signs: Vital Signs Pulse 75 06/19/21 10:13 Respiratory Rate 18 06/19/21 10:13 Blood Pressure 115/62 06/19/21 10:13 Pulse Oximetry 99 06/19/21 10:13 Pulse 75 06/19/21 10:13 Respiratory Rate 18 06/19/21 10:13 Blood Pressure 115/62 06/19/21 10:13 Blood Pressure Position Sitting 06/19/21 10:13 Pulse Oximetry 99 06/19/21 10:13 Oxygen Delivery Method Room Air 06/19/21 10:13 Oxygen Flow Rate 0 06/19/21 10:13
[2021-06-19 11:11] LABS: Abs Immature Grans 0.03 10^3/uL (0.0-0.06); Absolute Basophil Count 0.04 10^3/uL (0.0-0.2); Absolute Eosinophil Count 0.14 10^3/uL (0.0-0.7); Absolute Lymphocyte Count 1.04 10^3/uL (1.2-3.4); Absolute Monocyte Count 0.89 10^3/uL (0.1-0.8); Absolute Neutrophil Count 8.02 10^3/uL (1.2-6.7); Basophils % 0.4; Eosinophils % 1.4; HCT 35.4 % (40.0-50.0); HGB 11.4 g/dL (13.5-17.5); Immature Grans % 0.3; Lymphocytes % 10.2; MCH 31.1 pg (27.0-33.0); MCHC 32.2 % (32.0-36.0); MCV 96.5 fL (80-95); Monocytes % 8.8; Neutrophils % 78.9; Nucleated RBC 0 %; Platelet Count 202 10^3/uL (130-400); RBC 3.67 10^6/uL (4.36-5.78); RDW 12.8 % (11.8-14.1); RDW-SD 45.2 fL; WBC 10.16 10^3/uL (4.4-10.8)
--- NOTE | 2021-06-19 11:15 | DI.CT_ITS ---
Exam(s) CT ABDOMEN PELVIS W EXAM: CT ABDOMEN PELVIS W CLINICAL HISTORY: constipation, h/o bladder ca TECHNIQUE: COMPARISON: CT CT CHEST/ABD/PEL W from 05/13/2021 FINDINGS: CT examination of the abdomen and pelvis was performed with bolus infusion of 100 cc of Omnipaque 350 . Images obtained through the lung bases are unremarkable. The liver appears normal with no evidence of a focal mass. Spleen is unremarkable in appearance.. Gallbladder and bile ducts are unremarkable. Pancreas is unremarkable in appearance. Adrenals appear normal bilaterally. Patient reportedly has history of bladder carcinoma. Urinary bladder not identified and there is a p resumed right lower quadrant loop ileostomy. There is marked adenopathy in the left inguinal region, as noted on prior examination of May 13. Largest presumed enhancing metastatic lymph node in this area now measures about 8 cm in diameter a s compared to about 6 cm in diameter on prior study. No new intra-abdominal metastatic disease ident ified. Abdominal aorta is of normal diameter and no abnormality is seen involving major visceral branches.. Appendix is normal. No evidence diverticulitis or bowel obstruction. No significant abdominal wall hernia seen. Impression: Increasing left inguinal adenopathy in a patient with history of bladder carcinoma. No acute intra-a bdominal process. RADIATION DOSE DELIVERED: 1,140.08mGy.cm Total DLP 1,140.08mGy.cm Total DLP CTDIvol DATA REPOSITORY: All CT scans at this facility are submitted to the National Radiology Data Registry (NRDR) Dose Index Registry (DIR) with the [employer] (A[employer]). RADIATION OPTIMIZATION: All CT scans at this facility use at least one of these dose optimization te chniques: automated exposure control; mA and/or kV adjustment per patient size (includes targeted exa ms where dose is matched to clinical indication); or iterative reconstruction.
[2021-06-19 11:24] LABS: ALT 29 U/L (16-63); AST 26 U/L (15-37); Albumin 2.9 g/dL (3.4-5.0); Alkaline Phosphatase 85 U/L (46-116); BUN 21 mg/dL (7-18); Bilirubin, Total 0.7 mg/dL (0.2-1.0); CREATININE 1.1 mg/dL (0.70-1.30); Calcium 9.2 mg/dL (8.5-10.1); Chloride 102 mmol/L (98-107); Glucose 120 mg/dL (74-106); Potassium 3.4 mmol/L (3.5-5.1); Sodium 139 mmol/L (136-145); Total Protein 7.5 g/dL (6.4-8.2)
[2021-06-19] MEDS: Omnipaque 350 MG/ML 100 ML BTL IV (12:14)
--- NOTE | 2021-06-19 12:47 | DI.VRAD_ITS ---
PROCEDURE INFORMATION: Exam: CT Abdomen And Pelvis With Contrast Exam date and time: 06/19/2021 11:27 AM Age: 80 years old Clinical indication: Other: Constipation, h/o bladder CA, R/O sbo, mass; Prior surgery; Surgery date: 6+ months TECHNIQUE: Imaging protocol: Computed tomography of the abdomen and pelvis with contrast. Radiation optimization: All CT scans at this facility use at least one of these dose optimization techniques: automated exposure control; mA and/or kV adjustment per patient size (includes targeted exams where dose is matched to clinical indication); or iterative reconstruction. Contrast material: OMNIPAQUE 350; Contrast volume: 100 ml; Contrast route: INTRAVENOUS (IV); COMPARISON: CT CHEST/ABD/PEL W 13/05/2021 10:24 FINDINGS: Lungs: Visualized lung bases are clear. Liver: Normal. No mass or intrahepatic biliary ductal dilatation. Gallbladder and bile ducts: Normal. No calcified stones. No ductal dilation. Pancreas: Normal. No mass or ductal dilation. Spleen: Normal. No splenomegaly. Adrenal glands: Normal. No mass. Kidneys and ureters: Normal. No hydronephrosis. Stomach and bowel: Unremarkable. No obstruction. No mucosal thickening or visible mass. There is an ileal conduit in the right lower quadrant. Appendix: No evidence of appendicitis. Intraperitoneal space: Unremarkable. No free air. No significant fluid collection. Vasculature: Aorta is atherosclerotic and ectatic with a maximal diameter of 2.4 cm. Lymph nodes: Multiple shotty retroperitoneal nodes measuring up to about 10 mm is present. There is no mesenteric adenopathy. Small pelvic lymph nodes measuring up to 10 mm are noted. Urinary bladder: Previous cystectomy. Reproductive: Unremarkable as visualized. Bones/joints: Unremarkable. No acute fracture. No lytic lesions to suggest bony metastasis. Soft tissues: There are multiple enhancing soft tissue masses in the left inguinal region. The largest of these measures about 8 cm. There has been significant interval enlargement since the patient's prior study from 05/13/2021. Thick-walled fluid collection measuring 5.7 cm present in the inferior inguinal region on the left. Multiple surgical clips present in the region. IMPRESSION: There has been significant interval enlargement of multiple mass lesions in the left inguinal region since previous exam 1 month ago. These presumably are metastatic related to the patient's bladder cancer. There is no new acute intra-abdominal abnormality. Dictated and Authenticated by: Socrates Posadas MD. Ordering:MARCELLE Orourke MD
== END 2021-06-19 14:10 | disposition home or self-care (01) ==
PROVIDERS: Emergency Provider Physician Assistant; PCP Family Medicine
DX: K59.03 Drug induced constipation (principal); T45.1X5A Adverse effect of antineoplastic and immunosuppressive drugs, initial encounter; C67.9 Malignant neoplasm of bladder, unspecified; Z79.899 Other long term (current) drug therapy; C77.4 Secondary and unspecified malignant neoplasm of inguinal and lower limb lymph nodes
CPT/HCPCS: 36415; 80053; 99285; 74177; 85025; J3490

== ENCOUNTER 2021-06-22 15:39 | Inpatient (IN) | payer MEDICARE, BC, SELFPAY ==
[2021-06-22] VITALS (47 sets, daily range): BP systolic 107–155; BP diastolic 50–77; PULSE 56–73; RESP 11–19; TEMP 36.4–36.6; O2SAT 97–100
--- NOTE | 2021-06-22 15:45 | DI.CT_ITS ---
Exam(s) CT HEAD - STROKE PROTOCOL EXAM: CT HEAD - STROKE PROTOCOL CLINICAL HISTORY: confusion, difficulty with speech. TECHNIQUE: Imaging Protocol: Axial computed tomography images with coronal and sagittal reformatted images were created and reviewed COMPARISON: No exams were available for comparison FINDINGS: There are no skull fractures nor fluid in the visualized paranasal sinuses. There is some bilateral periventricular white matter hypodensity consistent with chronic small vessel disease. Ventricular size is age-appropriate. There is diffuse calcification in the falx. In the left parietal lobe there is an area of focal gyral hyperdensity with density measurements [address] units. Calcification versus blood. IMPRESSION: Small area of intra-axial hyperdensity in the left parietal lobe, possibly calcium but cannot exclude small area of hemorrhage. Follow-up MRI recommended RADIATION DOSE DELIVERED: 792.17mGy.cm Total DLP DATA REPOSITORY: All CT scans at this facility are submitted to the National Radiology Data Registry (NRDR) Dose Index Registry (DIR) with the [employer] (ACR). RADIATION OPTIMIZATION: All CT scans at this facility use at least one of these dose optimization te chniques: automated exposure control; mA and/or kV adjustment per patient size (includes targeted exa ms where dose is matched to clinical indication); or iterative reconstruction.
--- NOTE | 2021-06-22 15:45 | RT.EKG_ITS ---
APPROVED REPORT Exam: Resting ECG Reason for Exam: confusion Patient Location: E HR:61 bpm ECG Measurements Heart Rate 61 AXIS SD 213 P -3 QRSd 105 QRS 67 QT 438 T -10 QTc 442 Conclusion Sinus rhythm...normal P axis, V-rate 60- 99 Borderline prolonged SD interval...SD >212, V-rate 50- 90
--- NOTE | 2021-06-22 15:45 | DI.RAD_ITS ---
Exam(s) XR CHEST 2V PA LATERAL EXAM: XR CHEST 2V PA LATERAL CLINICAL HISTORY: confusion. TECHNIQUE: 2D digital imaging was performed. COMPARISON: No exams were available for comparison FINDINGS: Heart size is normal. The mediastinum is not widened. Lungs are clear. No infiltrates nor pleural effusions. IMPRESSION: No acute pulmonary findings. DATA REPOSITORY: RADIATION DOSE DELIVERED:
--- NOTE | 2021-06-22 15:56 | W.ED.GENAD ---
Discharge Plan Disposition Patient Disposition: [facility] INPATIENT Condition: Stable Discharge Details Chief Complaint: CVA/TIA Clinical Impression: TIA (transient ischemic attack), Aphasia, Acute UTI Admit Date/Time: 06/22/21 20:36 Admit Provider: Oliverio Land Attending Provider: Oliverio Land Primary Care Provider: Chapo Menon ED Provider: Mya Huitron Discharge Data Discharge Date/Time-TO BE ENTERED AT DEPARTURE: 06/22/21 21:56 Medical Decision Making Yenifer is a pleasant 80 year old male, brought in by his , with c/c of confusion and difficulty with speech. reports that this has bi intermittent for that past 3.75 hours. When he first arrived, he was unable to speak to the nurse to give any details. Upon my evaluation, is is A&O x 3. states that this has been her experience this afternoon. He denies pain, MENDEZ, nausea, visual changes. Has chornic LLE weakness associated with cancer and treatment for this. No acute change. Chronic difficulty with balance, associates with chemotherapy, no acute change. 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 They deny mets to brain. On exam, patient appears nontoxic. VS stable. Aside from his LLE weakness which was reported, no neurologic deficit at this time. His weakness in his LLE is with flexion of the hip, strength in knee/ankle intact. Concerned given his initial presentation to nursing staff for TIA and will move forward with CT for stroke protocol. Yenifer is within the 4 hour time frame but his waxing/waning symptoms do not warrant lytics at this time. Will continue to monitor closely. Contacted by radiologist. HE advised calcifaction vs. very tiny hemorrhage in parenchymal of left parietal lobe. He advised likely calcification but no previous for comparison. Have requested images to go to [facility]. Will consult with neurology. Reviewed notes from [facility]. He received an infusion of Enfortumab yesterday. Dr. Trivedi with neurology. He reviewed images, he advised that this is consistent with calcification and does not note acute bleeding. In the cortex, would be an odd area for bleeding. Advised it looks like old and calcium.. No previous head imaging for comparison through them either. Advised CTA, likely TIA. Recommended MRI with and without as this could also be a cortical tumor. Labs reviewed. Mild leukocytosis with a white count of 11.3. Hemoglobin 10.0. However, on chart review this does appear to be chronic anemia. Potassium slightly low at 3.3. No other significant normality. Troponin within normal limits. Urinalysis is concerning for infection with positive nitrite, positive leukocyte esterase and many bacteria with no epithelial cells. We will begin the patient on ceftriaxone. Reevaluated the patient and discussed recommendations from neurology as well as the findings of a UTI. Patient continues to be asymptomatic and has not had any recurrences of symptoms being here. Will obtain CTA. CTA reviewed by radiology: FINDINGS: Other: Suboptimal opacification of the arteries in the head. ANTERIOR CIRCULATION: Right internal carotid artery: Unremarkable. Intracranial segment is patent with no significant stenosis. Right middle cerebral artery: Unremarkable. No occlusion or significant stenosis. Right anterior cerebral artery: Unremarkable. No occlusion or significant stenosis. Left internal carotid artery: Unremarkable. Intracranial segment is patent with no significant stenosis. Left middle cerebral artery: Unremarkable. No occlusion or significant stenosis. Left anterior cerebral artery: Unremarkable. No occlusion or significant stenosis. POSTERIOR CIRCULATION: Right vertebral artery: Unremarkable. No occlusion or significant stenosis. Left vertebral artery: Unremarkable. No occlusion or significant stenosis. Basilar artery: Unremarkable. No occlusion or significant stenosis. Right posterior cerebral artery: Unremarkable. No occlusion or significant stenosis. Left posterior cerebral artery: Unremarkable. No occlusion or significant stenosis. Brain: An 11 mm enhancing focus in the cortex in the left convexity is seen. This is worrisome for malignancy. MRI would be more sensitive for any additional lesions. Cerebral ventricles: No ventriculomegaly. Soft tissues: Unremarkable. IMPRESSION: 1. Suboptimal opacification of intracranial vessels, but no definite occlusion or high-grade stenosis. 2. An 11 mm cortically based enhancing focus in the left convexity is worrisome for malignancy. FINDINGS: Right common carotid artery: No stenosis. No dissection or occlusion. Right internal carotid artery: Bulky plaque in the proximal right internal carotid artery causes a high-grade stenosis, likely greater than 95%. Right external carotid artery: Occlusion of the proximal right external carotid artery due to plaque. Left common carotid artery: No stenosis. No dissection or occlusion. Left internal carotid artery: Bulky plaque in the left proximal ICA causes mild focal narrowing. Left external carotid artery: No occlusion or stenosis of the origin. Right vertebral artery: Evaluation of the proximal right vertebral artery is limited due to artifact from venous contrast. The right vertebral artery is diminutive in its V 4 segment. Left vertebral artery: The left vertebral artery is diminutive in its V4 segment. Veins: Intravenous air seen in the IJ and some branches in the right clavicular region. This is probably due to IV access. Soft tissues: Normal. No significant soft tissue swelling. Bones/joints: No acute fracture. Lungs: An 11 mm pulmonary nodule seen in the left apex. This is unchanged from 05/13 2011. Clinical correlation recommended as this could potentially represent malignancy. IMPRESSION: 1. High-grade likely 95% plus stenosis in the right proximal cervical ICA 2. Unchanged 11 mm left apical pulmonary nodule worrisome for malignancy Discussed findings with the patient. Plan to admit for continued TIA work-up with MRI tomorrow. Also concerned that UTI may be contributing to this and will continue the patient on antibiotic. Consulted with Dr. Land who agrees to admission. HPI General Mode of arrival: wheelchair. Date/Time Provider Initiated Documentation: 06/22/21 15:48. Limitations to Documentation: no limitations. Information obtained by: patient, family () and RN notes reviewed. History of Present Illness 80 year old M presents to the emergency department with the chief complaint of speech disturbance, described as severe (unable to find any words), with intensity rated at 1 (patient denies any pain). Patient started experiencing this hour(s) (began at noon) and it has been intermittent. No relieving factors improve symptom(s), No exacerbating factors reported . Patient notes no other symptoms.. Patient did receive the following treatments prior to arrival, none Related Data Home Medications Medication Instructions Recorded Confirmed atenolol 25 mg PO DAILY tab-cap 03/10/16 06/19/21 atorvastatin 40 mg PO DAILY tab-cap 03/10/16 06/19/21 sertraline 50 mg PO DAILY tab-cap 04/13/16 06/19/21 acetaminophen [Tylenol Arthritis 1,300 mg PO ONCE 04/07/19 06/19/21 Pain] gabapentin 100 mg PO TID 06/19/21 06/19/21 magnesium citrate 150 ml PO BID PRN #300 ml 06/19/21 prochlorperazine maleate 10 mg PO Q6H PRN PRN 06/19/21 06/19/21 Previous Rx's Medication Instructions Recorded magnesium citrate 150 ml PO BID PRN #300 ml 06/19/21 Allergies Allergy/AdvReac Type Severity Reaction Status Date / Time lisinopril AdvReac pt reports Verified 06/19/21 10:58 elevated potassium General Stated Complaint: CVA/TIA YAZ: 2 Review of Systems Constitutional Constitutional: Reports as per HPI, Denies chills, Denies fatigue, Denies fever(s), Denies headache(s) and Reports weakness (LLE, chronic and unchanged) Eyes Eyes: Reports as per HPI, Denies blurry vision and Denies change in vision ENT Ears, Nose, Mouth, and Throat: Denies headache(s) and Denies neck pain Cardiovascular Cardiovascular: Reports as per HPI, Denies chest pain, Denies lightheadedness, Denies radiating jaw, neck or arm pain and Denies dyspnea Respiratory Respiratory: Reports as per HPI, Denies chest congestion, Denies cough and Denies dyspnea Gastrointestinal Gastrointestinal: Reports as per HPI, Denies abdominal pain, Denies change in bowel habits, Denies nausea and Denies vomiting Genitourinary Genitourinary: Reports system reviewed and no additional complaints, except as documented (denies change in urinary habits) Musculoskeletal Musculoskeletal: Reports as per HPI, Denies back pain, Denies myalgias, Denies muscle cramps, Denies neck pain and Denies numbness Integumentary/Breasts Skin/Breast: Reports as per HPI and Denies rash Neurologic Neurologic: Reports as per HPI, Denies abnormal movements, Reports abnormal speech, Denies behavioral changes, Denies confusion, Denies headache(s), Denies localized weakness, Denies numbness, Denies sensory deficit and Reports weakness (LLE, chronic and unchanged) Psychiatric Psychiatric: Denies behavioral changes and Denies confusion Endocrine Endocrine: Denies fatigue [facility] Medical History Angina pectoris BPH (benign prostatic hyperplasia) Coronary artery disease History of snoring Hypertension Urethral lesion Surgical History History of arthroscopy of knee bilat History of cardiac catheterization History of cataract surgery History of colonoscopy History of tonsillectomy & adnoids x2, then burnt out with [place]. Family History Other Diabetes Heart disease Lupus Social History Smoking/Tobacco Use Status: Former Tobacco Use Quit Date: 10/01/88 Smoking risk assessment performed?: Yes Alcohol Intake: current Alcohol Intake frequency: 0-2 drinks per day Alcohol type: wine and hard liquor Drug use: Never Substance use type: does not use Details: tried Hemp oil, Pt states wasn't helpful. Do you feel safe at home: Yes Do you feel safe in your relationship?: Yes Exam Const General: cooperative, healthy appearing, uncomfortable, no acute distress, well developed and well groomed Nutritional Appearance: average body habitus and well nourished Orientation: alert, awake and oriented x3 HENMT Head: normal to inspection, no palpable skull fracture, normocephalic and atraumatic Ears: hearing grossly normal bilaterally Mouth: oral mucosae normal and moist mucous membranes Throat: posterior oropharynx normal Eyes General: appearance normal, both eyes and all related structures Alignment and Position: alignment normal Periorbital: periorbital findings normal Eyelids: eyelids normal Sclera: sclerae normal Cornea: corneas normal Pupils: PERRL EOM: EOM intact bilaterally Neck Neck: normal visual inspection, full ROM, no lymphadenopathy and no meningeal signs Resp Effort & Inspection: normal respiratory effort, able to speak in complete sentences and no respiratory distress Auscultation: clear to auscultation bilaterally, no rales, no rhonchi and no wheezes Cardio Rate: regular rate Rhythm: regular rhythm Heart Sounds: S1 normal and S2 normal GI Inspection: normal to inspection and non-distended Palpation: soft, no hepatosplenomegaly, not firm, no guarding, not rigid and nontender Percussion: normal to percussion Auscultation: normal bowel sounds Back/Spine/Pelvis Cervical Spine: normal cervical lordosis and cervical ROM normal Skin General skin exam: no rashes or lesions noted Neuro General: patient alert, patient awake and patient oriented x3 Cranial Nerves: CN's II-XI intact bilaterally Cognition: normal cognition Speech: speech normal Gait: normal gait Motor: muscle tone normal throughout, strength not 5/5 throughout (flexion of left hip limited, rests it on the other leg), no pronator drift and no fasciculations Sensory Exam: no sensory deficits noted Coordination: [id number] test normal Extrem General: normal to inspection, capillary refill normal, no pedal edema and no calf tenderness Psych Appearance: grossly normal and well kempt Mental Status: mental status grossly normal Speech and Movement: speech and movement normal Course Vital Signs Vital signs: Vital Signs Temperature 36.4 C L 06/22/21 15:49 Pulse 70 06/22/21 15:49 Respiratory Rate 18 06/22/21 15:49 Blood Pressure 117/66 06/22/21 15:49 Pulse Oximetry 100 06/22/21 15:49 Temperature 36.4 C L 06/22/21 15:49 Temperature Source Temporal Artery Scan 06/22/21 15:49 Pulse 70 06/22/21 15:49 Respiratory Rate 18 06/22/21 15:49 Blood Pressure 117/66 06/22/21 15:49 Pulse Oximetry 100 06/22/21 15:49 Oxygen Delivery Method Room Air 06/22/21 15:49 Oxygen Flow Rate 0 06/22/21 15:49
--- NOTE | 2021-06-22 16:27 | DI.VRAD_ITS ---
PROCEDURE INFORMATION: Exam: CT Head Without Contrast Exam date and time: 06/22/2021 3:54 PM Age: 80 years old Clinical indication: Visual disturbance; Patient HX: Prior stroke December 2020 TECHNIQUE: Imaging protocol: Computed tomography of the head without contrast. COMPARISON: PT PETCT Skull to Thigh 07/13/2020 1:07 PM FINDINGS: Brain: There are mild periventricular and subcortical lucencies consistent with chronic microvascular ischemic changes. The robledo-white differentiation is maintained. No hemorrhage. No edema. Cerebral ventricles: No ventriculomegaly. Paranasal sinuses: Visualized sinuses are unremarkable. No fluid levels. Mastoid air cells: Visualized mastoid air cells are well aerated. Bones/joints: Unremarkable. No acute fracture. Soft tissues: Unremarkable. IMPRESSION: No acute intracranial abnormality. Chronic microvascular ischemic changes. Dictated and Authenticated by: Denis Lima MD. Ordering:NANY Roque MD
[2021-06-22 16:34] LABS: Abs Immature Grans 0.06 10^3/uL (0.0-0.06); Absolute Basophil Count 0.01 10^3/uL (0.0-0.2); Absolute Eosinophil Count 0.06 10^3/uL (0.0-0.7); Absolute Lymphocyte Count 1.78 10^3/uL (1.2-3.4); Basophils % 0.1; Eosinophils % 0.5; HCT 30.3 % (40.0-50.0); Immature Grans % 0.5; Lymphocytes % 15.7; MCH 31.4 pg (27.0-33.0); MCV 95.3 fL (80-95); MPV 9.8 fL (8.0-11.0); Monocytes % 7.2; Nucleated RBC 0 %; Platelet Count 234 10^3/uL (130-400); RBC 3.18 10^6/uL (4.36-5.78); RDW 12.9 % (11.8-14.1); RDW-SD 44.9 fL; WBC 11.32 10^3/uL (4.4-10.8)
[2021-06-22 16:36] LABS: Absolute Monocyte Count 0.82 10^3/uL (0.1-0.8)
[2021-06-22] MEDS: Normal Saline Flush 10 ML SYR IVP ×2 (16:41→19:27)
[2021-06-22] MEDS: Normal Saline 1,000 ML 125 ML IV ×2 (16:41→23:49)
[2021-06-22 17:03] LABS: ALT 41 U/L (16-63); AST 32 U/L (15-37); Albumin 2.7 g/dL (3.4-5.0); Alkaline Phosphatase 78 U/L (46-116); Anion Gap 7.2 mmol/L (3-11); BUN 24 mg/dL (7-18); Bilirubin, Total 0.3 mg/dL (0.2-1.0); CO2 29.8 mmol/L (21.0-32.0); Calcium 8.2 mg/dL (8.5-10.1); Chloride 105 mmol/L (98-107); Glucose 128 mg/dL (74-106); Magnesium 1.9 mg/dL (1.8-2.4); Potassium 3.3 mmol/L (3.5-5.1); Sodium 142 mmol/L (136-145); Total Protein 6.2 g/dL (6.4-8.2); Troponin I < 0.05 ng/mL (<0.06)
--- NOTE | 2021-06-22 17:15 | DI.CT_ITS ---
Exam(s) CT BRAIN NECK CTA EXAM: CT BRAIN NECK CTA CLINICAL HISTORY: intermittent aphasia. TECHNIQUE: Imaging Protocol: Axial CT angiography was performed with multi-slice acquisition and mu lti-planar and/or 3D reconstructions. CONTRAST MATERIAL: Intravenous: Omnipaque 350 Contrast volume:85 cc COMPARISON: CT CT ABDOMEN PELVIS W from 06/19/2021 FINDINGS: CTA Neck W: There is a 1 cm noncalcified nodule in the left lung apex, suspicious for possible metastatic nodule. No other pleural base nodule seen in the visualized right lung apex. Aortic arch anatomy: The aortic arch anatomy is conventional. Anterior circulation: Both common carotid arteries ascend with normal luminal diameters. There is heavy calcified plaque at the right carotid bifurcation and proximal right internal carotid artery with over 90 percent focal stenosis in the proximal right ICA. Right ICA above this level in the upper neck appears patent. Right external carotid artery appears occluded at its origin. Also heavy calcified plaque at the left carotid bulb and proximal left internal carotid artery but wi th significantly less stenosis, approximately 25 percent. Left ICA above this level is nicely patent in the upper neck and skull base. Left external carotid artery is not included. Posterior circulation: Both vertebral arteries originate off the subclavian arteries and ascend with equal luminal diameters of 4 millimeters in the foramen transverse area. Distally the right vertebral artery is thin but nick th appear to contribute to the formation of the basilar artery at the skull base. CTA Brain W: Anterior circulation: Both internal carotid arteries are patent in the skull base-carotid canals and are patent within the cavernous sinuses. Supraclinoid aspects are patent. Middle cerebral arteries are less than optimall y opacified but do not exhibit obvious intraluminal thrombus. A1 segments are thin bilaterally. Bot h anterior cerebral arteries are patent. There is no aneurysm at the level of the anterior communica ting artery. Posterior circulation: Basilar artery is formed by both vertebral arteries and ascends as a thin 2 millimeter vessel. Dista lly it gives off both superior cerebellar arteries. Posterior cerebral arteries are thin vessels fed by combination of basilar artery posterior communica ting arteries bilaterally. CT BRAIN: There is an abnormal 11 x 12 millimeter enhancing lesion in the left parietal lobe, exhibiting some p eripheral calcification. Suspicious for malignancy. No other abnormal enhancing lesions in the brai n. No prominent surrounding edema at this level. No evidence of intracranial hemorrhage. IMPRESSION: 1. There is a high-grade stenosis in the proximal right internal carotid artery, over 90 percent sten osis. There is heavily calcified plaque at this level. The ipsilateral right external carotid arter y appears occluded. Milder stenosis seen at the origin of the left internal carotid artery in the ne ck, probably 25 percent stenosis. 2. Vertebral arteries are patent. 3. Less than optimal opacification of the arteries with in the brain but no definite occlusion nor obvious high-grade stenosis. There is a 10 x 11 millimeter abnormal enhancing lesion in the left parietal lobe, worrisome for neop lasm. Contrast infused MRI follow-up is recommended. Nodules are noted in the sub apical regions of both lungs, also suspicious for neoplasm. RADIATION DOSE DELIVERED: 1,329.8mGy.cm Total DLP DATA REPOSITORY: All CT scans at this facility are submitted to the National Radiology Data Registry (NRDR) Dose Index Registry (DIR) with the [employer] (A[employer]). RADIATION OPTIMIZATION: All CT scans at this facility use at least one of these dose optimization te chniques: automated exposure control; mA and/or kV adjustment per patient size (includes targeted exa ms where dose is matched to clinical indication); or iterative reconstruction.
[2021-06-22 17:39] LABS: Bilirubin Negative (Negative); Blood Small (Negative); Clarity Clear (Clear); Glucose Negative (Negative); Ketones Negative (Negative); Leukocyte Esterase Small (Negative); Nitrite Positive (Negative); Specific Gravity 1.015 (1.005-1.025); Urobilinogen 0.2 EU/dL (Up TO 0.2)
--- NOTE | 2021-06-22 17:58 | DI.VRAD_ITS ---
PROCEDURE INFORMATION: Exam: XR Chest Exam date and time: 06/22/2021 3:54 PM Age: 80 years old Clinical indication: Other: Stroke TECHNIQUE: Imaging protocol: XR of the chest. Views: 2 views. COMPARISON: CT CHEST/ABD/PEL W 05/13/2021 10:24 AM FINDINGS: Lungs: Unremarkable. No consolidation. Pleural spaces: Unremarkable. No pleural effusion. No pneumothorax. Heart/Mediastinum: Unremarkable. No cardiomegaly. Bones/joints: Unremarkable. IMPRESSION: No acute findings. Dictated and Authenticated by: Michael Parikh MD. Ordering:NANY Roque MD
[2021-06-22 18:00] LABS: Bacteria Many HPF (Negative); C & S Indicated? Yes; Casts Negative LPF (Negative); Crystals Negative HPF (Negative); Epithelial Cells Negative HPF (Negative); Mucus Negative (Negative); RBC Negative HPF (0-2); WBC >50 HPF (0-5)
[2021-06-22] MEDS: cefTRIAXone 1 GM/50 ML BAG IVPB (19:20)
[2021-06-22] MEDS: Omnipaque 350 MG/ML 100 ML BTL IJ (19:26)
[2021-06-22 19:45] LABS: Troponin I < 0.05 ng/mL (<0.06)
--- NOTE | 2021-06-22 20:10 | DI.VRAD_ITS ---
PROCEDURE INFORMATION: Exam: CT Angiography Head With Contrast, Arteriography Exam date and time: 06/22/2021 5:22 PM Age: 80 years old Clinical indication: Visual disturbance; Transient visual loss TECHNIQUE: Imaging protocol: Computed tomography angiography of the head with contrast. Exam focused on the arteries. 3D rendering (Not supervised by radiologist): MIP and/or 3D reconstructed images were created by the technologist. Radiation optimization: All CT scans at this facility use at least one of these dose optimization techniques: automated exposure control; mA and/or kV adjustment per patient size (includes targeted exams where dose is matched to clinical indication); or iterative reconstruction. Contrast material: OMNI; Contrast volume: 85 ml; Contrast route: IV; COMPARISON: CT HEAD - STROKE PROTOCOL 06/22/2021 4:01 PM FINDINGS: Other: Suboptimal opacification of the arteries in the head. ANTERIOR CIRCULATION: Right internal carotid artery: Unremarkable. Intracranial segment is patent with no significant stenosis. Right middle cerebral artery: Unremarkable. No occlusion or significant stenosis. Right anterior cerebral artery: Unremarkable. No occlusion or significant stenosis. Left internal carotid artery: Unremarkable. Intracranial segment is patent with no significant stenosis. Left middle cerebral artery: Unremarkable. No occlusion or significant stenosis. Left anterior cerebral artery: Unremarkable. No occlusion or significant stenosis. POSTERIOR CIRCULATION: Right vertebral artery: Unremarkable. No occlusion or significant stenosis. Left vertebral artery: Unremarkable. No occlusion or significant stenosis. Basilar artery: Unremarkable. No occlusion or significant stenosis. Right posterior cerebral artery: Unremarkable. No occlusion or significant stenosis. Left posterior cerebral artery: Unremarkable. No occlusion or significant stenosis. Brain: An 11 mm enhancing focus in the cortex in the left convexity is seen. This is worrisome for malignancy. MRI would be more sensitive for any additional lesions. Cerebral ventricles: No ventriculomegaly. Soft tissues: Unremarkable. IMPRESSION: 1. Suboptimal opacification of intracranial vessels, but no definite occlusion or high-grade stenosis. 2. An 11 mm cortically based enhancing focus in the left convexity is worrisome for malignancy. PROCEDURE INFORMATION: Exam: CT Angiography Neck With Contrast Exam date and time: 06/22/2021 5:22 PM Age: 80 years old Clinical indication: Visual disturbance; Transient visual loss TECHNIQUE: Imaging protocol: Computed tomography angiography of the neck with contrast. 3D rendering (Not supervised by radiologist): MIP and/or 3D reconstructed images were created by the technologist. Radiation optimization: All CT scans at this facility use at least one of these dose optimization techniques: automated exposure control; mA and/or kV adjustment per patient size (includes targeted exams where dose is matched to clinical indication); or iterative reconstruction. Contrast material: OMNI; Contrast volume: 85 ml; Contrast route: IV; COMPARISON: CT HEAD - STROKE PROTOCOL 06/22/2021 4:01 PM FINDINGS: Right common carotid artery: No stenosis. No dissection or occlusion. Right internal carotid artery: Bulky plaque in the proximal right internal carotid artery causes a high-grade stenosis, likely greater than 95%. Right external carotid artery: Occlusion of the proximal right external carotid artery due to plaque. Left common carotid artery: No stenosis. No dissection or occlusion. Left internal carotid artery: Bulky plaque in the left proximal ICA causes mild focal narrowing. Left external carotid artery: No occlusion or stenosis of the origin. Right vertebral artery: Evaluation of the proximal right vertebral artery is limited due to artifact from venous contrast. The right vertebral artery is diminutive in its V 4 segment. Left vertebral artery: The left vertebral artery is diminutive in its V4 segment. Veins: Intravenous air seen in the IJ and some branches in the right clavicular region. This is probably due to IV access. Soft tissues: Normal. No significant soft tissue swelling. Bones/joints: No acute fracture. Lungs: An 11 mm pulmonary nodule seen in the left apex. This is unchanged from 05/13 2011. Clinical correlation recommended as this could potentially represent malignancy. IMPRESSION: 1. High-grade likely 95% plus stenosis in the right proximal cervical ICA 2. Unchanged 11 mm left apical pulmonary nodule worrisome for malignancy NASCET CRITERIA. The degree of internal carotid artery stenosis is based on NASCET criteria. Normal is no stenosis. Mild is less than 50% stenosis. Moderate is 50-69% stenosis. Severe is 70% to 99% stenosis. Total occlusion is no detectable patent lumen. Is Dictated and Authenticated by: Michael Parikh MD. Ordering:NANY Roque MD
[2021-06-22 20:15] LABS: Source Nasal/Nares
--- NOTE | 2021-06-22 21:13 | HPE_ITS ---
Date of service: 06/22/21 Time of Service: 21:13 Assessment and Plan Assessment and plan (1) History of bladder cancer: Status: Acute (2) TIA (transient ischemic attack): Status: Acute Assessment and plan: The TIAs resolved at the present time. He will be ad mitted to the hospital. He will have MRI tomorrow and I asked him to have his bring in his MRI images from [place] to be compared with MRI tomorrow. We will hold on aspirin and clopidogrel at present time. If he has any changes neurologic status his head CT will be repeated. (3) Aphasia: Status: Acute Assessment and plan: This is resolved at the present time. History of Present Illness History of Present Illness Chief Complaint: aphasia Narrative: This 80-year-old male came to the emergency department because of two episodes of aphasia. He said he was talking to her friend in [place] about 230 this afternoon and noticed that he had trouble speaking. He said he knew what he wanted to say but the words did not come out. This happened again when he was presenting here. He said no prior history of this in the past however he was seen in [place] and may have had a stroke in his eye causing right eye blurriness. He saw a retinal specialist and it sounds like he had a temporal artery biopsy also. He did have an MRI in [place] but has the images with him at his home in [facility] [place]. He has had coronavirus vaccine x2. 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 He had a bladder cystectomy, penectomy and prostatectomy with an ileal conduit in May 2020 for the bladder cancer. He started a new chemotherapy about 1 week ago for the bladder cancer. He presented to the emergency department here and consultation was done with neurology at [facility]. Aspirin or clopidogrel was not recommended at this time because of a concern about a small hemorrhage in his brain. It may just be a small calcification. His head and neck CTA showed a lesion in his left lung apex. Review of Systems Constitutional Constitutional: Denies body ache(s), Denies chills, Denies fever(s), Denies headache(s), Denies lethargy and Denies weakness Eyes Comments: He has chronic watery eyes and blurry vision. This has not changed. ENT Ears, Nose, Mouth, and Throat: Denies headache(s), Denies odynophagia and Denies disequilibrium Cardiovascular Cardiovascular: Denies chest pain, Denies syncope, Denies rapid heart rate and Denies dyspnea Respiratory Respiratory: Denies cough and Denies dyspnea Gastrointestinal Gastrointestinal: Denies abdominal pain, Denies diarrhea, Denies odynophagia and Denies vomiting Genitourinary Genitourinary: Denies hematuria Musculoskeletal Musculoskeletal: Denies numbness Comments: He has chronic back pain. Neurologic Neurologic: Denies confusion, Denies syncope, Denies headache(s), Denies localized weakness, Denies memory loss, Denies numbness, Denies sensory deficit, Denies disequilibrium and Denies weakness Comments: He has chronic weakness of his left hip flexor and poor balance. Psychiatric Psychiatric: Denies confusion and Denies memory loss [facility] Medical History (Updated 06/22/21 @ 21:23 by Oliverio Land MD) Angina pectoris BPH (benign prostatic hyperplasia) Coronary artery disease History of snoring Hypertension Urethral lesion Surgical History (Updated 09/18/19 @ 08:24 by Nataliia Cosme RN) History of arthroscopy of knee bilat History of cardiac catheterization History of cataract surgery History of colonoscopy History of tonsillectomy & adnoids x2, then burnt out with [place]. Family History Other Diabetes Heart disease Lupus Social History (Updated 07/19/18 @ 08:49 by Dayana Christine, ZULEYKA) Smoking/Tobacco Use Status: Former Tobacco Use Quit Date: 10/01/88 Smoking risk assessment performed?: Yes Alcohol Intake: current Alcohol Intake frequency: 0-2 drinks per day Alcohol type: wine and hard liquor Drug use: Never Substance use type: does not use Details: tried Hemp oil, Pt states wasn't helpful. Do you feel safe at home: Yes Do you feel safe in your relationship?: Yes Meds Allergies and Home Medications Allergies Allergy/AdvReac Type Severity Reaction Status Date / Time lisinopril AdvReac pt reports Verified 06/19/21 10:58 elevated potassium Home Medications Medication Instructions Recorded Confirmed Type atenolol 25 mg PO DAILY tab-cap 03/10/16 06/19/21 History atorvastatin 40 mg PO DAILY tab-cap 03/10/16 06/19/21 History sertraline 50 mg PO DAILY tab-cap 04/13/16 06/19/21 History acetaminophen [Tylenol Arthritis 1,300 mg PO ONCE 04/07/19 06/19/21 History Pain] gabapentin 100 mg PO TID 06/19/21 06/19/21 History magnesium citrate 150 ml PO BID PRN #300 ml 06/19/21 Rx prochlorperazine maleate 10 mg PO Q6H PRN PRN 06/19/21 06/19/21 History Exam Const General: cooperative, well developed and not anxious Nutritional Appearance: well nourished Orientation: alert, awake and oriented x3 Eyes Eyelids: eyelids normal Conjunctivae: conjunctivae normal EOM: EOM intact bilaterally Other: Lateral visual yee are normal. Neck Neck: normal visual inspection and no lymphadenopathy Thyroid: thyroid normal Resp Effort & Inspection: normal respiratory effort and able to speak in complete sentences Auscultation: no rales, no rhonchi and wheezes Cardio Jugular venous pressure: no JVD Rhythm: regular rhythm Heart Sounds: S1 normal, S2 normal, no click, no gallops and murmur Bruits: no carotid bruits GI Inspection: normal to inspection Palpation: no hepatosplenomegaly, not rigid and nontender Neuro Cranial Nerves: CN's II-XI intact bilaterally, PERRL, facial strength normal, tongue midline and symmetric palate elevation Speech: speech normal Motor: strength 5/5 throughout and no pronator drift Sensory Exam: no sensory deficits noted Coordination: rapid alternating movement UE normal Results Labs Result diagrams: 06/22/21 16:25 06/22/21 16:25 Labs: Laboratory Results - last 24 hr 06/22/21 06/22/21 06/22/21 16:25 16:25 17:25 WBC 11.32 H RBC 3.18 L Hgb 10.0 L Hct 30.3 L MCV 95.3 H MCH 31.4 MCHC 33.0 RDW 12.9 Plt Count 234 MPV 9.8 Immature Gran % 0.5 Neutrophils % 76.0 Lymphocytes % 15.7 Monocytes % 7.2 Eosinophils % 0.5 Basophils % 0.1 Nucleated RBC % 0 Absolute Neutrophils 8.60 H Absolute Lymphocytes 1.78 Absolute Monocytes 0.82 H Absolute Eosinophils 0.06 Absolute Basophils 0.01 Sodium 142 Potassium 3.3 L Chloride 105 Carbon Dioxide 29.8 Anion Gap 7.2 BUN 24 H Creatinine 1.0 Estimated GFR/1.73 m2 >= 60.00 Glucose 128 H Calcium 8.2 L Magnesium 1.9 Total Bilirubin 0.3 AST 32 ALT 41 Alkaline Phosphatase 78 Troponin I < 0.05 Total Protein 6.2 L Albumin 2.7 L Urine Color Yellow Urine Clarity Clear Urine pH 6.0 Ur Specific [place] 1.015 Urine Protein 30 H Urine Ketones Negative Urine Blood Small H Urine Nitrite Positive H Urine Bilirubin Negative Urine Urobilinogen 0.2 Ur Leukocyte Esterase Small H Urine RBC Negative Urine WBC >50 H Ur Epithelial Cells Negative Urine Crystals Negative Urine Bacteria Many Urine Casts Negative Urine Mucus Negative Ur Culture Indicated? Yes Urine Glucose Negative COVID-19 Source 06/22/21 06/22/21 19:22 20:00 WBC RBC Hgb Hct MCV MCH MCHC RDW Plt Count MPV Immature Gran % Neutrophils % Lymphocytes % Monocytes % Eosinophils % Basophils % Nucleated RBC % Absolute Neutrophils Absolute Lymphocytes Absolute Monocytes Absolute Eosinophils Absolute Basophils Sodium Potassium Chloride Carbon Dioxide Anion Gap BUN Creatinine Estimated GFR/1.73 m2 Glucose Calcium Magnesium Total Bilirubin AST ALT Alkaline Phosphatase Troponin I < 0.05 Total Protein Albumin Urine Color Urine Clarity Urine pH Ur Specific [place] Urine Protein Urine Ketones Urine Blood Urine Nitrite Urine Bilirubin Urine Urobilinogen Ur Leukocyte Esterase Urine RBC Urine WBC Ur Epithelial Cells Urine Crystals Urine Bacteria Urine Casts Urine Mucus Ur Culture Indicated? Urine Glucose COVID-19 Source Nasal/Nares Last Vital Signs Temp 36.4 C L 06/22/21 20:00 Pulse 63 06/22/21 20:01 Resp 17 06/22/21 20:50 BP 143/73 H 06/22/21 20:01 Pulse Ox 99 06/22/21 20:50
[2021-06-22 22:13] LABS: COVID-19 PCR Negative (Negative)
[2021-06-22] MEDS: Potassium Chloride 10 MEQ TABCR PO (23:48)
[2021-06-23] VITALS (10 sets, daily range): BP systolic 112–129; BP diastolic 65–71; PULSE 63–83; RESP 15–20; TEMP 35.9–36.8; O2SAT 96–99
--- NOTE | 2021-06-23 | DI.US_ITS ---
APPROVED REPORT EXAM: Comprehensive 2D, Doppler, and color-flow Echocardiogram Patient Location: In-Patient Room/Bed: 229 Nurse Manager: Cheryl Myeer RDCS (AE) Indications: TIA Other Information Study Quality: Adequate Conclusion Normal left ventricular wall thickness and chamber size. Normal estimated ejection fraction, 57%, th ere are no segmental wall motion abnormalities Normal right ventricular size and systolic function Both atria are normal in size Sclerotic trileaflet aortic valve without regurgitation or stenosis Mitral annular calcification, with trace mitral regurgitation Normal tricuspid valve with trace regurgitation. Estimated right ventricular systolic pressure is no rmal Wall motion Left Ventricle The left ventricle is normal size. The left ventricular systolic function is normal. The left ventric ular ejection fraction is within the normal range. There is normal left ventricular wall thickness. T here is normal LV segmental wall motion. There is no ventricular septal defect visualized. LVEF is 58 %. Right Ventricle The right ventricle is normal size. The right ventricular systolic function is normal. The RVSP is 21 .7mmHg. Atria The left atrium size is normal. The right atrium size is normal. The interatrial septum is intact wit h no evidence for an atrial septal defect. Aortic Valve Aortic valve is calcified. The Aortic valve is sclerotic. Number of aortic valve leaflets could not b e assessed. No hemodynamically significant valvular aortic stenosis. No aortic regurgitation is prese nt. Mitral Valve Moderate mitral annular calcification. No evidence of mitral valve stenosis. Trace mitral regurgitati on. Tricuspid Valve The tricuspid valve is normal in structure. There is no tricuspid valve stenosis. Trace tricuspid reg urgitation. Pulmonic Valve The pulmonary valve is normal in structure. There is no pulmonic valvular stenosis. There is no pulmo ambika valvular regurgitation. Great Vessels The aortic root is normal in size. The ascending aorta is normal in size. Aortic arch is not well vis ualized. IVC is normal in size and collapses >50% with inspiration. Pericardium There is no pericardial effusion. 2D Dimensions IVSD d PLAX 0.93 cm M: 0.6-1.2 LV Vol A2C d MOD 83.1 mL LVPW d PLAX 0.95 cm M: 0.6 - 1.2 LV Vol A4C d MOD 100.6 mL LVID d PLAX 4.55 cm M: 4.2 - 5.8 LA vol/ BSA A2C s A-L 24.6 mL/m2 LVDs 3.15 cm M: 2.5 - 4.0 LA vol/ BSA A4C s A-L 21.1 mL/m2 Ao Root d 2.82 cm M: 3.1 - 3.7 LA Vol/ BSA Biplane s A-L 23.2 mL/m2 RA Area A4C 14.55 cm2 LA Area A4C s MOD 15.54 cm2 RA Vol/ BSA A4C s A-L 26.0 mL/m2 LA Area A2C s MOD 17.05 cm2 Ao Asc Diam d 3.16 cm M: 2.6 - 3.4 LV EF A4C MOD 57.1 % LV EF Teichholz 58.4 % LV EF A2C MOD 58.6 % LVEF (Mai's) 56.50 % M: 52 - 72 LV EF Biplane MOD 56.5 % LV Volume 67.73 mL M: 62 - 150 SV 51.62 mL LV Volume Index 32.71 mL/m2 M: 34 - 74 SV Index 24.91 mL/m2 LV Vol Biplane MOD 91.4 mL FS 30.75 % M-Mode TAPSE 2.54 cm (M/F) >1.7 LV Diastology MV E' medial 0.078 (>0.07 m/s) E/A Ratio 1.2 LV E/e MED 10.00 (<14) MV E Vmax 0.78 (0.4-1.3 m/s) MV E' lateral 0.100 (>0.1 m/s) MV A Vmax 0.65 (0.4-1.3 m/s) LV E/e LAT 7.80 (<14) MV E/A Ratio 1.12 MV E/E' medial 10.00 MV E/E' lateral 7.80 Aortic Valve LVOT Area 2.94 cm2 AoV Area Vmax 1.44 cm2 LVOT Vmax 1.06 m/s AoV Area/ BSA (Vmax) 0.70 cm2/m2 LVOT Mean [place]in. 0.68 m/s CHRISTY Mean Destin. 1.31 cm2 LVOT Peak Grad 4.5 mmHg CHRISTY Mean [place]in. Index 0.63 cm2/m2 LVOT Mean Grad 2.2 mmHg LVOT VTI 0.230 m LVOT Diam s 1.90 cm AoV Vmax 2.17 m/s Velocity Ratio 0.48 AoV Mean Destin. 1.53 m/s AoV Peak Grad 18.8 mmHg LVOT SV 67.65 mL AoV Mean Grad 10.4 mmHg AoV VTI 0.474 m AoV Area VTI 1.43 cm2 AoV Area/ BSA (VTI) 0.69 cm/m2 Mitral Valve MV DT 211 (160-240 msec) MV PHT 61 msec MV Area PHT 3.59 cm2 MV VTI 0.305 m MV Area VTI 2.22 (4.0-6.0 cm2) Pulmonary Valve PV Vmax 1.18 (0.5-1.5 m/s) RVOT Peak Gr. 1.52 mmHg PV Peak Grad 5.5 mmHg RVOT Mean Gr. 0.80 mmHg PV Mean Grad 3.2 mmHg RVOT VTI 0.139 m PV VTI 0.252 m RVOT Vmax 0.62 m/s Tricuspid Valve TR Peak Grad 18.6 mmHg TR Vmax 2.16 m/s RA Pressure 3.00 mmHg RVSP (TR) 21.7 mmHg
--- NOTE | 2021-06-23 00:47 | NUR.NOTE ---
Nursing Note: Patient having loose/liquid stools, r/t previous use of mag citrate prior to arrival at the hospital. Unknown to nursing, patient had own imodium in personal belongings and took a dose. 2mG Loperimide 125mG Simethicone. Remainder of medication sent to pharmacy. Education on medication safety and regulations in the hospital provided.
[2021-06-23 07:24] LABS: Abs Immature Grans 0.05 10^3/uL (0.0-0.06); Absolute Basophil Count 0.02 10^3/uL (0.0-0.2); Absolute Eosinophil Count 0.06 10^3/uL (0.0-0.7); Absolute Lymphocyte Count 1.52 10^3/uL (1.2-3.4); Absolute Monocyte Count 0.67 10^3/uL (0.1-0.8); Absolute Neutrophil Count 6.18 10^3/uL (1.2-6.7); Basophils % 0.2; Eosinophils % 0.7; HCT 29.1 % (40.0-50.0); HGB 9.8 g/dL (13.5-17.5); Immature Grans % 0.6; Lymphocytes % 17.9; MCH 31.3 pg (27.0-33.0); MCHC 33.7 % (32.0-36.0); MPV 9.3 fL (8.0-11.0); Monocytes % 7.9; Neutrophils % 72.7; Nucleated RBC 0 %; Platelet Count 198 10^3/uL (130-400); RBC 3.13 10^6/uL (4.36-5.78); RDW-SD 44.1 fL
[2021-06-23 07:33] LABS: Anion Gap 7.2 mmol/L (3-11); BUN 13 mg/dL (7-18); CO2 28.8 mmol/L (21.0-32.0); CREATININE 0.8 mg/dL (0.70-1.30); Calcium 8.1 mg/dL (8.5-10.1); Chloride 105 mmol/L (98-107); Glucose 108 mg/dL (74-106); Potassium 3.3 mmol/L (3.5-5.1); Sodium 141 mmol/L (136-145)
[2021-06-23] MEDS: Atenolol 25 MG TAB PO (08:06)
[2021-06-23] MEDS: Sertraline 50 MG TAB PO (08:07)
[2021-06-23] MEDS: Atorvastatin 40 MG TAB PO (08:07)
[2021-06-23] MEDS: Potassium Chloride 10 MEQ TABCR PO ×2 (08:08→20:52)
[2021-06-23] MEDS: Gabapentin 100 MG CAP PO ×3 (08:08→20:52)
[2021-06-23] MEDS: Potassium Chloride 20 MEQ TABCR 40 MEQ PO (09:05)
--- NOTE | 2021-06-23 10:46 | INITIAL_ITS ---
- If Service Date Differs Date of service: 06/23/21 Time of Service: 10:46 Care Management Initial Assess PAST MEDICAL HISTORY/PAST SURGICAL HISTORY:: Medical History (Updated 06/22/21 @ 21:23 by Oliverio Land MD). Angina pectoris. BPH (benign prostatic hyperplasia). Coronary artery disease. History of snoring. Hypertension. Urethral lesion. Surgical History (Updated 09/18/19 @ 08:24 by Nataliia Cosme RN). History of arthroscopy of knee. bilat. History of cardiac catheterization. History of cataract surgery. History of colonoscopy. History of tonsillectomy. & adnoids x2, then burnt out with [place]. PREVIOUS FUNCTIONAL STATUS/SOCIAL/FAMILY SUPPORTS:: Amy lives in [place], [place] with his Marika. He has one daughter of his own and Marika has 4 children. 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 Amy shared that his primary residence is in [place] but he and his spend several months each year in [place], generally from January until October. CURRENT FUNCTIONAL STATUS:: Amy was sitting up in bed when CM met with him. He was polite and agreeable to conversation but not very forthcoming. Amy did share that he is in the process of having testing done. Later in the day Dr. Cruz met with him and discussed the fact that his MRI showed that he has a lesion in his brain. He has been treated for bladder cancer and this is possibly a metastatic lesion. Amy is currently a full code but is considering DNR/DNI. He shared with Dr. cruz that he would like his present when he makes that decision. ADVANCE DIRECTIVES:: none on file Has patient been provided with info about the portal/API?: Yes Did the patient sign up for the portal?: No CODE STATUS:: Full Code INSURANCE COVERAGE / FINANCIAL ISSUES:: Medicare. BC BS CURRENT HOME/COMMUNITY SERVICES/EQUIPMENT:: none currently PRIMARY CARE PHYSICIAN:: Chapo Menon POTENTIAL DISCHARGE NEEDS:: Follow up with PCP and plan of care PATIENT/FAMILY EDUCATION NEEDS:: Review of discharge instructions, medications, activity, limitations, Ask Me Three TRANSPORTATION:: via private vehicle with family PLAN:: Amy will likely be discharged home with no new services. He will follow up with his community providers and plan of care. It is unclear if he will pursue further workup of the newly identified lesion in his brain. CM will continue to support Amy and his discharge planning needs.
[2021-06-23] MEDS: Gadoterate meglumine 20 ML VIAL 17 ML IVP (10:47)
--- NOTE | 2021-06-23 11:15 | DI.MRI_ITS ---
Exam(s) MR BRAIN WO/W EXAM: MR BRAIN WO/W CLINICAL HISTORY: tia, possible met or hemorrhage TECHNIQUE: Multiplanar multisequence MRI of the brain was performed. Both noninfused and contrast i nfused sequences were performed. IV Contrast injected was 17 cc Dotarem. COMPARISON: No exams were available for comparison FINDINGS: CEREBRAL PARENCHYMA: There is a 10 x 11 millimeter ring-enhancing lesion in the left parietal lobe, suspicious for metasta tic disease. There are no other ring-enhancing lesions in the brain. No abnormal meningeal enhancem ent. No abnormal signal in the cerebellar hemispheres nor within the iam and midbrain and thalami. Some mild periventricular chronic white matter ischemic changes are noted. On diffusion imaging there is a punctate focus of signal abnormality-restricted diffusion in the high left frontal lobe, most probably ischemic. there is no abnormal enhancement and no hemorrhage at th is level. On susceptibility imaging there is a 9 x 6 millimeter focus of blooming in the right occipital lobe r egion, probably prior microhemorrhage. No evidence of acute hemorrhage at this time PITUITARY GLAND: No mass nor parasellar abnormality. No obvious abnormality in the cavernous sinuses. FLOW VOIDS: The expected flow void are noted. No evidence of obvious aneurysm nor obvious vascular ma lformation. No evidence of obvious venous sinus thrombosis. PARANASAL SINUSES: There is a small amount of fluid in the left maxillary sinus. Remainder of the pa ranasal sinuses are clear. ORBITS: No obvious abnormal findings. IMPRESSION: 1. There is 10 x 11 millimeter solitary ring-enhancing lesion left parietal lobe. Suspicious for radha plasm but with only minimal surrounding edema. 2. Small focus of restricted diffusion on DWI evident in the high left frontal lobe, probably embolic . No hemorrhage at this level. No abnormal enhancement at this level. Other findings as above DATA REPOSITORY:
--- NOTE | 2021-06-23 12:52 | W.NEUROCONSU ---
Date of service: 06/23/21 Time of Service: 12:52 Assessment and Plan Assessment and plan (1) Acute embolic stroke: Status: Acute (2) Carotid stenosis, right: Status: Acute (3) Brain mass: Status: Acute (4) Malignant neoplasm metastatic from bladder: Status: Acute (5) Aphasia: Status: Acute Assessment and plan: Mr. Piper is a 80 year-old, right-handed man with known metastatic bladder cancer who was admitted with transient aphasia and dysarthria. #1. Acute left frontal ischemic stroke manifested by expressive aphasia and dysarthria. Unclear etiology. He has evidence of both large and small vessel disease. A hypercoaguable state and embolic event remain in the differential. Bladder NURSE STAFF metastatic lesions are at increased risk of bleeding, though no evidence of bleeding at this time. I would recommend initiation of aspirin 81mg daily. No DAPT. I recommend extended cardiac monitoring pending patient goals of care. Given waxing/waning symptoms, would also check EEG as seizure remains in the differential. Will need ST evaluation. Consider PT as well given left leg weakness. #2. New NURSE STAFF mass, likely metastatic. #3. Right carotid stenosis, asymptomatic. Continue aspirin and statin. #4. Neuropathy. Continue gabapentin. He should follow-up in neurology in 4-6 weeks. Please call with any further questions or concerns. History of Present Illness History of Present Illness Chief Complaint: aphasia Narrative: Handedness: right. HPI: Mr. Piper is a 80 year-old man with hypertension, hyperlipidemia, metastatic bladder cancer, prior R ocular stroke, and depression. Mr. Piper was admitted yesterday with waxing and waning difficulty speaking including slurred speech and difficulty getting his words out. He notes 3 episodes this am lasting ~15minutes each. He attributes his symptoms to dehydration. In the ER, BP 120/56, WBC 11.3, Hgb 10.0, UA+. He underwent neuroimaging as below. He has not been placed on an anti-platelet agent as of yet. In January 2021, while living in [facility], he suffered peripheral vision loss in the right eye for which he was diagnosed with a stroke. Work-up including treatment with steroids and a temporal artery biopsy which was negative. He underwent a brain MRI and was told he had a stroke at some point in the past. He was not placed on aspirin and he isn't sure why. He has not regained his visit. -CTH: no acute findings. L parietal calcification. I reviewed these images personally and this is my personal interpretation. -CTA head/neck: dense calcifications bilaterally at the carotid. +R ICA stenosis (over 90% per rads). Intracranial vascular seems diffusely small/scrawny to me. I reviewed these images personally and this is my personal interpretation. -MRI brain: acute infarct in left frontal lobe. Prior small hemorrhagic stroke in the right occipital lobe. Enhancing L parietal mass with minimal mass effect - not connected to the meninges. Likely representing metastatic disease given history. I reviewed these images personally and this is my personal interpretation. -TTE: EF 58%, no wall motion abnormalities. LA normal. Otherwise, notes that he was referred to [facility] for neuropathy and neuropathic pain presumably due to chemotherapy. He was started on gabapentin by his oncologist with significant improvement in his pain. He has chronic left leg weakness due to his metastatic disease. Consults Requesting physician: Deborah Taylor Review of Systems All systems reviewed & are unremarkable except as noted in HPI and below [facility] Medical History Angina pectoris BPH (benign prostatic hyperplasia) Coronary artery disease History of snoring Hypertension Urethral lesion Surgical History History of arthroscopy of knee bilat History of cardiac catheterization History of cataract surgery History of colonoscopy History of tonsillectomy & adnoids x2, then burnt out with Forman. Family History Other Diabetes Heart disease Lupus Social History Smoking/Tobacco Use Status: Former Tobacco Use Quit Date: 10/01/88 Smoking risk assessment performed?: Yes Alcohol Intake: current Alcohol Intake frequency: 0-2 drinks per day Alcohol type: wine and hard liquor Drug use: Never Substance use type: does not use Details: tried Hemp oil, Pt states wasn't helpful. Do you feel safe at home: Yes Do you feel safe in your relationship?: Yes Visit Medication and Allergies Active Medications Generic Name Dose Route Start Last Admin Trade Name Freq PRN Reason Stop Dose Admin Acetaminophen 500 mg 06/22/21 20:36 Acetaminophen 325 Mg Tab PO Q4H PRN PRN Atenolol 25 mg 06/23/21 08:30 06/23/21 08:06 Atenolol 25 Mg Tab PO 25 mg DAILY CHRISTINE Administration Atorvastatin Calcium 40 mg 06/23/21 08:30 06/23/21 08:07 Atorvastatin 40 Mg Tab PO 40 mg DAILY CHRISTINE Administration Dimethicone/Zinc Oxide 0 gm 06/22/21 20:36 Narcisa Protect Cream 142 Gm Tube TP PRN PRN Docusate Sodium 100 mg 06/22/21 20:36 Docusate Sodium 100 Mg Cap PO TID PRN PRN Gabapentin 100 mg 06/23/21 08:30 06/23/21 08:08 Gabapentin 100 Mg Cap PO 100 mg TID CHRISTINE Administration Gadoterate Meglumine 17 ml 06/23/21 11:00 06/23/21 10:47 Gadoterate Meglumine 20 Ml Vial IVP 06/23/21 14:00 17 ml DIRECTED CHRISTINE Administration Sodium Chloride 1,000 mls @ 125 mls/hr 06/22/21 16:00 06/22/21 23:49 Saline 1000ml Bag IV 125 mls/hr INFUSION CHRISTINE Administration Sodium Chloride 500 mls @ 0 mls/hr 06/22/21 20:36 Saline 500ml Bag IV PRN PRN As Directed IV Miscellaneous Supplies 1 each 06/22/21 20:45 Iv Access IV DIRECTED CHRISTINE Polyethylene Glycol 17 gm 06/22/21 20:36 Polyethylene Glycol 3350 17 Gm Packet PO DAILY PRN PRN Constipation Potassium Chloride 10 meq 06/22/21 23:45 06/23/21 08:08 Potassium Chloride 10 Meq Tabcr PO 10 meq BID CHRISTINE Administration Sertraline HCl 50 mg 06/23/21 08:30 06/23/21 08:07 Sertraline 50 Mg Tab PO 50 mg DAILY CHRISTINE Administration Sodium Chloride 0 ml 06/22/21 20:36 Normal Saline Flush 10 Ml Syr IVP PRN PRN Allergies lisinopril Adverse Reaction (Verified 06/19/21 10:58) pt reports elevated potassium Exam Narrative Exam Narrative: Physical Exam: Gen: Patient of apparent stated age, NAD Head and face: no facial or cranial abnormalities Neck: Supple, no meningismus, no occipital tenderness CV: + S1, S2, RRR, no murmur Resp: CTA B/L Abd: soft, nontender, nondistended Ext: No edema. No clubbing or cyanosis. No bony deformity. Neuro Exam: Language: naming, repetition, and comprehension intact; at times with decreased fluency Mental Status: AAOx3, current events intact, fund of knowledge intact; Speech: mild dysarthria Cranial nerves: Funduscopy: not performed CN II: visual yee intact CN III, IV, : extraocular movements intact, no nystagmus, pupils symmetric and reactive to light CN V: face sensation intact to LT and PP CN VII: subtle right nasolabial fold flattening/slower smile on that side CN VIII: hearing intact bilaterally CN IX, X: palate rises symmetrically CN XI: trapezius/SCM 5/5 bilaterally CN XII: protrudes tongue symmetrically Sensory: intact to LT, PP, vibration, and joint position in all extremities Motor: bulk and tone intact. Fine motor movements intact bilaterally. No pronator drift. Strength 5/5 throughout except 3-/5 L hip flexor, 4/5 left quad. Reflexes: hyporeflexic throughout with absent achilles tendon reflexes; toes down going bilaterally; Coordination: FTN and HTS intact bilaterally Gait: not tested Results Last Vital Signs Temp 35.9 C L 06/23/21 12:18 Pulse 79 06/23/21 12:18 Resp 20 06/23/21 12:18 BP 112/71 06/23/21 12:18 Pulse Ox 99 06/23/21 12:18 Labs Result diagrams: 06/23/21 06:54 06/23/21 06:54 Labs: Laboratory Results - last 24 hr 06/22/21 06/22/21 06/22/21 16:25 16:25 17:25 WBC 11.32 H RBC 3.18 L Hgb 10.0 L Hct 30.3 L MCV 95.3 H MCH 31.4 MCHC 33.0 RDW 12.9 Plt Count 234 MPV 9.8 Immature Gran % 0.5 Neutrophils % 76.0 Lymphocytes % 15.7 Monocytes % 7.2 Eosinophils % 0.5 Basophils % 0.1 Nucleated RBC % 0 Absolute Neutrophils 8.60 H Absolute Lymphocytes 1.78 Absolute Monocytes 0.82 H Absolute Eosinophils 0.06 Absolute Basophils 0.01 Sodium 142 Potassium 3.3 L Chloride 105 Carbon Dioxide 29.8 Anion Gap 7.2 BUN 24 H Creatinine 1.0 Estimated GFR/1.73 m2 >= 60.00 Glucose 128 H Calcium 8.2 L Magnesium 1.9 Total Bilirubin 0.3 AST 32 ALT 41 Alkaline Phosphatase 78 Troponin I < 0.05 Total Protein 6.2 L Albumin 2.7 L Urine Color Yellow Urine Clarity Clear Urine pH 6.0 Ur Specific [place] 1.015 Urine Protein 30 H Urine Ketones Negative Urine Blood Small H Urine Nitrite Positive H Urine Bilirubin Negative Urine Urobilinogen 0.2 Ur Leukocyte Esterase Small H Urine RBC Negative Urine WBC >50 H Ur Epithelial Cells Negative Urine Crystals Negative Urine Bacteria Many Urine Casts Negative Urine Mucus Negative Ur Culture Indicated? Yes Urine Glucose Negative COVID-19 Source SARS-CoV-2 (PCR) 06/22/21 06/22/21 06/23/21 19:22 20:00 06:54 WBC RBC Hgb Hct MCV MCH MCHC RDW Plt Count MPV Immature Gran % Neutrophils % Lymphocytes % Monocytes % Eosinophils % Basophils % Nucleated RBC % Absolute Neutrophils Absolute Lymphocytes Absolute Monocytes Absolute Eosinophils Absolute Basophils Sodium 141 Potassium 3.3 L Chloride 105 Carbon Dioxide 28.8 Anion Gap 7.2 BUN 13 D Creatinine 0.8 Estimated GFR/1.73 m2 >= 60.00 Glucose 108 H Calcium 8.1 L Magnesium Total Bilirubin AST ALT Alkaline Phosphatase Troponin I < 0.05 Total Protein Albumin Urine Color Urine Clarity Urine pH Ur Specific [place] Urine Protein Urine Ketones Urine Blood Urine Nitrite Urine Bilirubin Urine Urobilinogen Ur Leukocyte Esterase Urine RBC Urine WBC Ur Epithelial Cells Urine Crystals Urine Bacteria Urine Casts Urine Mucus Ur Culture Indicated? Urine Glucose COVID-19 Source Nasal/Nares SARS-CoV-2 (PCR) Negative 06/23/21 06:54 WBC 8.50 RBC 3.13 L Hgb 9.8 L Hct 29.1 L MCV 93.0 MCH 31.3 MCHC 33.7 RDW 13.0 Plt Count 198 MPV 9.3 Immature Gran % 0.6 Neutrophils % 72.7 Lymphocytes % 17.9 Monocytes % 7.9 Eosinophils % 0.7 Basophils % 0.2 Nucleated RBC % 0 Absolute Neutrophils 6.18 Absolute Lymphocytes 1.52 Absolute Monocytes 0.67 Absolute Eosinophils 0.06 Absolute Basophils 0.02 Sodium Potassium Chloride Carbon Dioxide Anion Gap BUN Creatinine Estimated GFR/1.73 m2 Glucose Calcium Magnesium Total Bilirubin AST ALT Alkaline Phosphatase Troponin I Total Protein Albumin Urine Color Urine Clarity Urine pH Ur Specific [place] Urine Protein Urine Ketones Urine Blood Urine Nitrite Urine Bilirubin Urine Urobilinogen Ur Leukocyte Esterase Urine RBC Urine WBC Ur Epithelial Cells Urine Crystals Urine Bacteria Urine Casts Urine Mucus Ur Culture Indicated? Urine Glucose COVID-19 Source SARS-CoV-2 (PCR)
--- NOTE | 2021-06-23 16:49 | W.PM.PROGNOT ---
Date of Service Date of service: 06/23/21 Time of Service: 16:49 Assessment and Plan Assessment and plan (1) Aphasia: Status: Acute Assessment and plan: Intermittent/recurrent. ?Acute CVA vs complex partial seizure. Await neurology recommendations. (2) Acute embolic stroke: Status: Acute Assessment and plan: Given a new diagnosis of brain met, antiplatelet/anticoagulation therapy is typically contraindicated. Await formal neurology recommendations. Monitor on tele (the patient has been in sinus arrhythmia). Both of his atria are normal in size on echo, LVEF is 57%. It does not appear that bubble study was done. (3) Brain mass: Status: Acute Assessment and plan: Suspected metastatic disease from bladder ca. The patient has met with Dr Cruz and is considering his goals of care. The patient's oncologist was notified by Dr Cruz. He has an appointment with his next Sunday. (4) Malignant neoplasm metastatic from bladder: Status: Acute Assessment and plan: S/p radical cystectomy/ileal conduit. On chemo. New brain metastasis is likely related. As above (5) Discharge planning issues: Status: Acute Assessment and plan: Full code Plan for discharge tomorrow (6) DVT prophylaxis: Status: Acute Assessment and plan: TEDs/SCDs Subjective Subjective Interval history since last seen: Mr Delgado states he does not know how he is doing. He feels he needs more information about the tumor that was found in his brain. He has an appointment with his oncologist tomorrow. Denies dizziness, headache, chest pain, shortness of breath, nausea, vomiting. He stated to Dr Salomon that he has had several episodes of speech issues today, and she did witness this and did not feel it appeared to be a seizure. Exam Narrative Exam Narrative: General: Pleasant elderly male, A&Ox3, somnolent, easily arousable, no focal deficits at the time of my examination, fluent speech HEENT: EOMI, MMM Heart: RRR Lungs: CTAB Abdomen: soft, nontender, nondistended Extremities: no edema BLE's. Objective Last Vital Signs Temp 35.9 C L 06/23/21 12:18 Pulse 83 06/23/21 16:15 Resp 20 06/23/21 12:18 BP 112/71 06/23/21 12:18 Pulse Ox 99 06/23/21 12:18 Laboratory Results - last 24 hr 06/22/21 06/22/21 06/22/21 16:25 17:25 19:22 WBC RBC Hgb Hct MCV MCH MCHC RDW Plt Count MPV Immature Gran % Neutrophils % Lymphocytes % Monocytes % Eosinophils % Basophils % Nucleated RBC % Absolute Neutrophils Absolute Lymphocytes Absolute Monocytes Absolute Eosinophils Absolute Basophils Sodium 142 Potassium 3.3 L Chloride 105 Carbon Dioxide 29.8 Anion Gap 7.2 BUN 24 H Creatinine 1.0 Estimated GFR/1.73 m2 >= 60.00 Glucose 128 H Calcium 8.2 L Magnesium 1.9 Total Bilirubin 0.3 AST 32 ALT 41 Alkaline Phosphatase 78 Troponin I < 0.05 < 0.05 Total Protein 6.2 L Albumin 2.7 L Urine Color Yellow Urine Clarity Clear Urine pH 6.0 Ur Specific [place] 1.015 Urine Protein 30 H Urine Ketones Negative Urine Blood Small H Urine Nitrite Positive H Urine Bilirubin Negative Urine Urobilinogen 0.2 Ur Leukocyte Esterase Small H Urine RBC Negative Urine WBC >50 H Ur Epithelial Cells Negative Urine Crystals Negative Urine Bacteria Many Urine Casts Negative Urine Mucus Negative Ur Culture Indicated? Yes Urine Glucose Negative COVID-19 Source SARS-CoV-2 (PCR) 06/22/21 06/23/21 06/23/21 20:00 06:54 06:54 WBC 8.50 RBC 3.13 L Hgb 9.8 L Hct 29.1 L MCV 93.0 MCH 31.3 MCHC 33.7 RDW 13.0 Plt Count 198 MPV 9.3 Immature Gran % 0.6 Neutrophils % 72.7 Lymphocytes % 17.9 Monocytes % 7.9 Eosinophils % 0.7 Basophils % 0.2 Nucleated RBC % 0 Absolute Neutrophils 6.18 Absolute Lymphocytes 1.52 Absolute Monocytes 0.67 Absolute Eosinophils 0.06 Absolute Basophils 0.02 Sodium 141 Potassium 3.3 L Chloride 105 Carbon Dioxide 28.8 Anion Gap 7.2 BUN 13 D Creatinine 0.8 Estimated GFR/1.73 m2 >= 60.00 Glucose 108 H Calcium 8.1 L Magnesium Total Bilirubin AST ALT Alkaline Phosphatase Troponin I Total Protein Albumin Urine Color Urine Clarity Urine pH Ur Specific [place] Urine Protein Urine Ketones Urine Blood Urine Nitrite Urine Bilirubin Urine Urobilinogen Ur Leukocyte Esterase Urine RBC Urine WBC Ur Epithelial Cells Urine Crystals Urine Bacteria Urine Casts Urine Mucus Ur Culture Indicated? Urine Glucose COVID-19 Source Nasal/Nares SARS-CoV-2 (PCR) Negative
--- NOTE | 2021-06-23 18:02 | PCNE_ITS ---
Date of service: 06/23/21 Time of Service: 14:02 History of Present Illness History of Present Illness Chief Complaint: metastatic bladder cancer, recent AMS, brain mets Narrative: I met with Danny in his room and then we called both his , Marika, and his oncologist's primary nurse, Joslyn to discuss today's findings. Danny had a brain MRI that showed a new lesion suspicious for brain metastasis and an acute left frontal ischemic stroke. He has been evaluated by neurology, though Dr Salomon's note was not available at time I was seeing him. Pretty tells me that he was first diagnosed with metastatic bladder cancer in [facility] in 2019. He had surgery, followed by chemo and then immunotherapy Nothing seemed to be working. . He received his first 18 mos of care at the [facility] in [facility]. He then had a series of irregularities in his care, and he decided to come to his summer home, as usual, and seek cancer care through [facility]. His oncologist is Dr Bertram Packer. His local PCP is Dr Menon. He was admitted to [facility] with expressive aphasia that comes and goes. His primary nurse, Karen, said that he has seen him with garbled speech and clear speech, confusion and clarity. He is clearing up as the day goes on, he thinks. Consults Consult date: 06/23/21 Requesting physician: Deborah Taylor Assessment and Plan Assessment and plan (1) Palliative care patient: Status: Acute Assessment and plan: Would like follow up to complete his COLST, ideally when is present. I left blank form with him to review. He is willing to fill out when staff available. (2) Carotid stenosis, right: Status: Acute (3) Acute embolic stroke: Status: Acute Assessment and plan: Already recovering much of his verbal ability. 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 (4) Brain mass: Status: Chronic Assessment and plan: Probably brain met from his bladder cancer. Called [facility] to let them know. Dr Patten will review imaging before he next sees Amy. Uncertain re: significance of next oncology treatment plan. 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 He would like to get back out on his boat, a precision 21, at some time. Given his need for oncology treatment so far, he has not returned to [facility]. He and his Marika lived in [facility] x 30 years; they moved to [facility] only 5 years ago. He was part of the [employer] community there. Has not found a new community in [place], yet. He is closer to her daughter and kole here. When he enters the last stages of his illness, he would like to be nearer to them than he was in [facility]. (9) Expressive aphasia: Status: Acute Assessment and plan: Resolving at time of my visit. Defer to Dr Salomon for further eval/care. 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 (12) Former smoker, stopped smoking in distant past: Status: Acute (13) Sun-damaged skin: Status: Acute (14) POLST (Physician Orders for Life-Sustaining Treatment): Status: Acute Assessment and plan: He has a blank form in his room. He would like help filling this out before he is discharged, ideally when Marika is present. Review of Systems Constitutional Constitutional: Reports fatigue, Reports poor appetite, Reports weakness and Reports weight loss (50 lbs in the last 6 months) Eyes Eyes: Reports dry eyes and Reports requires corrective lenses ENT Ears, Nose, Mouth, and Throat: Reports dry mouth Cardiovascular Cardiovascular: Reports dyspnea on exertion Respiratory Respiratory: Reports dyspnea on exertion Gastrointestinal Gastrointestinal: Reports constipation and Reports early satiety Genitourinary Genitourinary: Reports urinary incontinence and Reports urinary urgency Musculoskeletal Musculoskeletal: Reports atrophy and Reports muscle weakness Integumentary/Breasts Skin/Breast: Reports dry skin and Reports other (sun damaged skin) Neurologic Neurologic: Reports abnormal speech and Reports weakness Psychiatric Psychiatric: Reports difficulty concentrating Endocrine Endocrine: Reports fatigue Hematologic/Lymphatic Hematologic/Lymphatic: Reports easy bruising [facility] Medical History (Updated 06/24/21 @ 09:36 by Pilar Cruz MD) 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 ([place]) Angina pectoris BPH (benign prostatic hyperplasia) Coronary artery disease Dental caries extensive oral surgery early 2020 Expressive aphasia due to left frontal stroke transientd Former smoker, stopped smoking in distant past Goals of care, counseling/discussion History of snoring Hypertension Palliative care patient POLST (Physician Orders for Life-Sustaining Treatment) Sun-damaged skin Urethral lesion Surgical History History of arthroscopy of knee bilat History of cardiac catheterization History of cataract surgery History of colonoscopy History of tonsillectomy & adnoids x2, then burnt out with [place]. Family History (Updated 06/24/21 @ 09:15 by Pilar Cruz MD) Daughter No problems noted. Other Diabetes Heart disease Lupus Social History (Updated 06/24/21 @ 09:22 by Pilar Cruz MD) Smoking/Tobacco Use Status: Former Tobacco Use Quit Date: 10/01/88 Tobacco: How many years used: 30 Counseling given: other Details: discussed link between smoking and bladder cancer Smoking risk assessment performed?: Yes Alcohol Intake: current Alcohol Intake frequency: 0-2 drinks per day Alcohol type: wine and hard liquor Counseling given: No Drug use: Never Substance use type: does not use Details: tried Hemp oil, Pt states wasn't helpful. 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 [employer] Do you think of yourself as: straight/heterosexual Current gender identity: male What is your relationship status?: How often do you talk on the phone with friends or family?: three or more times per week How often do you get together with friends or relatives?: once per week Panel score (0-1 are the most socially isolated patients): 2 What type of physical activity do you participate in: walking and occasional exercise Duration: 15-30 minutes/day Frequency: 3-4 times per week Special claire needs: No Seatbelt use: always Working smoke detector in home: Yes Fire extinguisher in home: Yes Do you feel safe at home: Yes Do you feel safe in your relationship?: Yes Additional Social history: to Marika, his second , for more than 40 years. Has one daughter from first marriage, Radha, who lives in [place], [place] with her 2 kids. Close to his stepson, Nelson, who lives in [place], [place]. Aileen lived a sailing life until he came down with cancer. He retired at age 72 and they lived in a sailing community in [place]. They are officially [facility] residents, but they have a second home in [place], [place]. Amy tells me that [facility] in [place] wouldn't handle my care any longer. He doesn't understand why. He is getting new treatment with Dr Patten and tolerating it. He was not surprised to hear about likely cancer mets to his brain. He reports that ever since he was diagnosed with bladder cancer, he has felt pretty lousy. Exam Const General: cooperative, no acute distress and not ill appearing Nutritional Appearance: average body habitus Orientation: alert, awake and oriented x3 HENMT Head: normocephalic and atraumatic Ears: hearing grossly normal bilaterally General nose exam: external nose normal Face and sinus: other (slight flattening of nasolabial fold on right) Mouth: oral mucosae normal Teeth and gingiva: fair dentition and multiple restorations Eyes Conjunctivae: conjunctivae normal Sclera: sclerae normal Neck Neck: no lymphadenopathy and no JVD Resp Effort & Inspection: normal respiratory effort Auscultation: clear to auscultation bilaterally Cardio Rate: regular rate Rhythm: regular rhythm Heart Sounds: S1 normal and S2 normal GI Palpation: soft Auscultation: normal bowel sounds Skin General skin exam: other (sun damage UE and scalp) Hair: male pattern alopecia Nails: discolored and dystrophic (severely so, side effect of immunotherapy) Neuro General: patient alert, patient awake and patient oriented x3 Cognition: normal cognition Speech: speech normal (rare word finding difficulty) Gait: wide-based (able to get OOB and walk to BR on his own, a bit unsteady gait) Extrem General: abnormal gait and muscle atrophy Psych Appearance: grossly normal Mental Status: mental status grossly normal Speech and Movement: speech and movement normal (slight hesitancy and dysarthria, mild) Mood: congruent mood Affect: normal affect Attitude: cooperative Thought Process: normal Thought Content: normal Insight: insight good Judgment: judgment good Other: very bright man with good medical literacy in general Results Last Vital Signs Temp 96.6 F L 06/23/21 12:18 Pulse 83 06/23/21 16:15 Resp 20 06/23/21 12:18 BP 112/71 06/23/21 12:18 Pulse Ox 99 06/23/21 12:18 Labs Result diagrams: 06/23/21 06:54 06/23/21 06:54 Labs: Laboratory Results - last 24 hr 06/22/21 06/22/21 06/23/21 19:22 20:00 06:54 WBC RBC Hgb Hct MCV MCH MCHC RDW Plt Count MPV Immature Gran % Neutrophils % Lymphocytes % Monocytes % Eosinophils % Basophils % Nucleated RBC % Absolute Neutrophils Absolute Lymphocytes Absolute Monocytes Absolute Eosinophils Absolute Basophils Sodium 141 Potassium 3.3 L Chloride 105 Carbon Dioxide 28.8 Anion Gap 7.2 BUN 13 D Creatinine 0.8 Estimated GFR/1.73 m2 >= 60.00 Glucose 108 H Calcium 8.1 L Troponin I < 0.05 COVID-19 Source Nasal/Nares SARS-CoV-2 (PCR) Negative 06/23/21 06:54 WBC 8.50 RBC 3.13 L Hgb 9.8 L Hct 29.1 L MCV 93.0 MCH 31.3 MCHC 33.7 RDW 13.0 Plt Count 198 MPV 9.3 Immature Gran % 0.6 Neutrophils % 72.7 Lymphocytes % 17.9 Monocytes % 7.9 Eosinophils % 0.7 Basophils % 0.2 Nucleated RBC % 0 Absolute Neutrophils 6.18 Absolute Lymphocytes 1.52 Absolute Monocytes 0.67 Absolute Eosinophils 0.06 Absolute Basophils 0.02 Sodium Potassium Chloride Carbon Dioxide Anion Gap BUN Creatinine Estimated GFR/1.73 m2 Glucose Calcium Troponin I COVID-19 Source SARS-CoV-2 (PCR)
[2021-06-23] MEDS: Normal Saline 1,000 ML 125 ML IV (23:04)
[2021-06-24 03:36] VITALS: BP 124/72; PULSE 69; RESP 18; TEMP 35.3; O2SAT 96
[2021-06-24 07:38] VITALS: BP 136/71; PULSE 68; RESP 16; TEMP 36.9; O2SAT 97
[2021-06-24] MEDS: Atorvastatin 40 MG TAB PO (08:18)
[2021-06-24] MEDS: Gabapentin 100 MG CAP PO ×2 (08:18→15:47)
[2021-06-24] MEDS: Atenolol 25 MG TAB PO (08:18)
[2021-06-24] MEDS: Sertraline 50 MG TAB PO (08:19)
[2021-06-24] MEDS: Potassium Chloride 10 MEQ TABCR PO (08:19)
[2021-06-24 08:58] LABS: Hemoglobin A1C 6.2 % (<5.7)
[2021-06-24 09:00] LABS: Anion Gap 5.3 mmol/L (3-11); BUN 10 mg/dL (7-18); CO2 30.7 mmol/L (21.0-32.0); CREATININE 0.9 mg/dL (0.70-1.30); Calcium 8.5 mg/dL (8.5-10.1); Calculated LDL 44 mg/dL (<100); Chloride 105 mmol/L (98-107); Cholesterol 94 mg/dL (<200); Glucose 89 mg/dL (74-106); HDL Cholesterol 34 mg/dL (40-60); Magnesium 1.8 mg/dL (1.8-2.4); Potassium 3.7 mmol/L (3.5-5.1); Sodium 141 mmol/L (136-145); TSH (W/Ref FT4) 0.72 uIU/mL (0.36-3.74); Triglyceride 81 mg/dL (<150); Vitamin B12 344 pg/mL (193-986)
[2021-06-24 10:49] VITALS: PULSE 83; O2SAT 96
[2021-06-24 11:48] VITALS: BP 116/72; PULSE 67; RESP 15; TEMP 36.9; O2SAT 97
[2021-06-24] MEDS: Aspirin E.C. 81 MG TABEC PO (12:00)
[2021-06-24] MEDS: Cyanocobalamin 1000 MCG/ML VIAL IM/SC (12:07)
--- NOTE | 2021-06-24 13:00 | SP_ITS ---
Date of service: 06/24/21 Time of Service: 13:00 Subjective Patient was contacted in his room, awake, alert, and agreeable to participate in this evaluation. He reports earlier this date having another transient aphasic episode after calling his nurse, only to find he was unable to verbalize what he wanted. Denies confusion or forgetfullness, but was unable to draw the word up in my brain, or say any words at all. Eventually, he was able to shout the word towel! after about a minute. Endorses when his speech first returns, it can be garbled. Denies difficulty understanding others during these episodes. Patient denies any speech, voice, or swallowing changes. Denies memory changes. At the end of the session, patient's spouse entered and was present for delivery of impressions, education, and recommendations. Objective Objective INFORMAL/OBSERVATION: Verbal expression: No syntax errors or agrammatism in conversation. Occasional pausing possibly indicative of word retrieval difficulty. No overt paraphasic errors (sound or word substitutions). Auditory comprehension: Responses to questions topically appropriate and relatively prompt. Noting patient does endorse hearing loss requiring occasional repetition. Speech: 100% comprehensible at a distance of 3-4 feet without overt dysarthric errors. Mental Status: Awake/alert/cooperative Orientation: (+) Month, Date, Day of week, Year, Place (+/-) Situation (When asked why he is in the hospital, patient states he has a UTI and (something else he doesn't quite understand) Insight: When asked, appears to have appropriate insight into his deficits. MOTOR SPEECH EXAM: Facial: WFL strength, coordination. Symmetry: mild R nasolabial flattening. Labial: WFL strength, symmetry, coordination. Lingual: WFL symmetry, coordination. Noting possible mild bilateral lingual weakness & ROM to resistance. Mandibular: WFL strength and excursion. Palatal: Palatal arch raises symmetrically upon phonation. Laryngeal: Sharp cough present. Glottal AMR's WNL. Maximum phonation time: 15 seconds (WFL). Mild-mod breathy/hoarse voice, though per patient, this is his baseline. Diadochokinetics: Speech AMR's: noting mild imprecision with lingual syllables, WFL rate & rhythm. Speech SMR's: WFL Automatic speech (counting, months, days of week): No errors WESTERN APHASIA BATTERY (Revised)- Bedside Form Spontaneous Speech Content: +9/10 (partial response to why he is hospitalized) Fluency: +9/10 (mild pauses - possibly baseline level of function vs. mild sx of word finding deficits). Y/N Q's: +10/10 Sequential commands: +8/10 (error: Point to the pen with the paper) Repetition: +10/10 Naming: +10/10 BEDSIDE APHASIA SCORE: +93/100 Reading: +10/10 Writing: +10/10 Apraxia: +10/10 BEDSIDE LANGUAGE SCORE: +95/100 EDUCATION Provided to: Pt, spouse, RN who all verbalized understanding. - Role of Speech-Language Pathologist in dx/tx of Speech, Language, Swallowing, and Cognitive-Communication disorders. - Nature of word-finding/anomia symptoms - Rationale for communication strategies, including low-tech AAC - Rationale for seeking further DATABASE DEVELOPMENT PROJECT MANAGER services in the future PRN IMPRESSIONS: Upon examination this date, patient appears with largely normal language and speech function, though noting possible mild lingual imprecision and weakness. Given that this examination was performed outside of one of his aphasic episodes, relying largely on patient, MD, and RN report of transient symptoms, of which primary reported symptom is word-retrieval. Noting some mild difficulty with complex/non-naturalistic sequential commands and integration of complex medical information this date (patient unable to summarize reason for his hospital stay and appears with some difficulty recalling or understanding new brain imaging results. Suspect largely due to fatigue/situational, pt may benefit from gentle reinforcement of complex medical information. Given his communication is largely normal at this time with only transient symptoms of decreasing frequency, provided education regarding recommended strategies as below and education regarding role of speech pathology. Recommend placement of Outpatient DATABASE DEVELOPMENT PROJECT MANAGER services on a PRN basis should his symptoms become more frequent/severe as his medical situation progresses. Patient/spouse agreeable to this plan. PLAN: As discharge is imminent, no further inpatient DATABASE DEVELOPMENT PROJECT MANAGER services necessary. MD to place PRN outpatient DATABASE DEVELOPMENT PROJECT MANAGER referral. RECOMMENDATIONS: Communication during transient aphasic episodes: - Gestures: Point, mime, etc when possible - Try writing your message with pen/paper - If speech is preserved, describe or provide associations (circumlocution) - Use communication board for basic/medical needs PRN (DATABASE DEVELOPMENT PROJECT MANAGER provided basic needs sheet, and blank copies for pt/spouse to customize) Time spent: 45 minutes Savana Wilson Speech Language Pathologist DATABASE DEVELOPMENT PROJECT MANAGER CPT Code: 70497 Evaluation of speech sound production with evaluation of language comprehension and expression. Coding
--- NOTE | 2021-06-24 14:08 | IN_ITS ---
Date of service: 06/24/21 Time of Service: 01:45 PT Notes Visit Reasons: TIA (cardiology) Inpatient Physical Therapy Evaluation Date: 06/24/21 Referring Doctor: Patrick Taylor MD PT Orders: PT CONSULT: Evaluate and Treat Precautions: Standard Patient Profile/Admitting Diagnosis: Orders received for this 80-year-old male. 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 He states that he has been otherwise fairly healthy until finding out that he had a brain lesion. Through his cancer treatment he has been losing up to 50 pounds. He woke up recently with a disruption in his speech and was sent to the emergency room. PMHX: Medical History (Updated 06/22/21 @ 21:23 by Oliverio Land MD) Angina pectoris BPH (benign prostatic hyperplasia) Coronary artery disease History of snoring Hypertension Urethral lesion Surgical History (Updated 09/18/19 @ 08:24 by Nataliia Cosme RN) History of arthroscopy of knee bilat History of cardiac catheterization History of cataract surgery History of colonoscopy History of tonsillectomy & adnoids x2, then burnt out with [place]. Social History/Home Situation: Patient lives at home with his . He has home also in the [facility] which they stay in the winter Equipment Owned/DME: Cane and a 2 wheel walker Subjective: Patient states that he is doing okay Objective: Well oriented alert male who is lying in bed with head of bed to 20 degrees, medical line in place only for IV port in the right upper extremity Mental Status: Well oriented alert to person place and time Pain: Nothing ROM: Right Upper Extremity: Within functional limits Left Upper Extremity: Within functional limits Right Lower Extremity: Within functional limits Left Lower Extremity: Within functional limits Strength: Right Upper Extremity: Globally 4+ out of 5 Left Upper Extremity: Globally 4+ out of 5 Right Lower Extremity: Globally 5-5 Left Lower Extremity: Globally 5 out of 5 Bed Mobility/Transfers: Patient able to assume bed mobility including linen independently Supine-sit: Independent Sit-stand: Contact-guard assist Stand-sit: Contact-guard assist Gait: With contact-guard assist in the aid of a 2 wheeled walker patient able to ambulate 20 feet within his room Balance: Static Sitting: Normal Dynamic Sitting: Good Static Standing: Good Dynamic Standing: Fair Special Tests: Mobility Limitations Standardized Measure [facility] AM-PAC 6 clicks Basic Mobility Inpatient Short Form: Raw Score: 19 standardized Score: 45.44 CMS Score: 41.77 Informed Consent/Education: Patient instructed in purpose of PT consult and plan of care. ASSESSMENT: Patient is a 80-year-old male with history of good physical health Admitted with possible TIA and ongoing brain lesion Patient presents with the following impairment level findings: Assistance needed with transfers, mild balance impairment, ambulation intolerance Pt will benefit from skilled therapy intervention in order to remedy their functional limitations and restore patient to a more appropriate and stable functional level. Impairments are contributing to the following functional limitations: AMPAC score 41.77% Patient is assessed as a moderate complexity initial evaluation based on the following: History: see above Examination: see above Presentation: Evolving Decision Making: Moderate based on impact of 41.77 Goals: Goals X1 week 1. Gait independent with 2 wheeled walker up to 100 feet 2: Stairs independent up to 3 steps 3: Independent in Home program Plan of Care/Treatment Plan: 1-2x/day, 7 days/week x 1 week. Plan of care has been reviewed with the ONLINE COMMUNITY MANAGER providing the service under Physical Therapy direction. Initiate Physical Therapy intervention for strengthening, bed mobility, transfers, gait, stairs, balance training, use of assistive device. DISCHARGE RECOMMENDATIONS: To home once medically stable. Patient has been seen by a lymphedema specialist in the past it has been recommended that patient pursue some type of outpatient treatment for his left lower extremity lymphedema. This will be coordinated with Julieta Contreras DPT to see if that is an option. TREATMENT CODE/TIME: Moderate complexity initial evaluation 82001, time of treatment 1 45 25 minutes of direct patient care Uvaldo Grimes DPT
--- NOTE | 2021-06-24 15:29 | PDOC.EEG_ITS ---
Neurology EEG EEG: [facility] Department of Neurology INPATIENT EEG REPORT Date of Recordin06/24/21 Interpreting Physician: Dr. Ann Marie Salomon Reason for study: Mr. Piper is a 80 year-old man with waxing and waning expressive aphasia, found to have an acute left frontal ischemic stroke and a left parietal mass. Current Medications: Current Medications Acetaminophen (Acetaminophen 500 Mg Tab) 500 mg PO Q4H PRN PRN Aspirin (Aspirin E.C. 81 Mg Tabec) 81 mg PO DAILY [facility] Atenolol (Atenolol 25 Mg Tab) 25 mg PO DAILY [facility] Last Admin: 06/24/21 08:18 Dose: 25 mg Documented by: Atorvastatin Calcium (Atorvastatin 40 Mg Tab) 40 mg PO DAILY [facility] Last Admin: 06/24/21 08:18 Dose: 40 mg Documented by: Cyanocobalamin (Cyanocobalamin 500 Mcg Tab) 1,000 mcg PO DAILY [facility] Dimethicone/Zinc Oxide (Narcisa Protect Cream 142 Gm Tube) 0 gm TP PRN PRN Docusate Sodium (Docusate Sodium 100 Mg Cap) 100 mg PO TID PRN PRN Gabapentin (Gabapentin 100 Mg Cap) 100 mg PO TID [facility] Last Admin: 06/24/21 08:18 Dose: 100 mg Documented by: Sodium Chloride (Saline 1000ml Bag) 1,000 mls @ 125 mls/hr IV INFUSION [facility] Last Admin: 06/23/21 23:04 Dose: 125 mls/hr Documented by: Sodium Chloride (Saline 500ml Bag) 500 mls @ 0 mls/hr IV PRN PRN IV Miscellaneous Supplies (Iv Access) 1 each IV DIRECTED [facility] Polyethylene Glycol (Polyethylene Glycol 3350 17 Gm Packet) 17 gm PO DAILY PRN PRN PRN Reason: Constipation Potassium Chloride (Potassium Chloride 10 Meq Tabcr) 10 meq PO BID [facility] Last Admin: 06/24/21 08:19 Dose: 10 meq Documented by: Sertraline HCl (Sertraline 50 Mg Tab) 50 mg PO DAILY [facility] Last Admin: 06/24/21 08:19 Dose: 50 mg Documented by: Sodium Chloride (Normal Saline Flush 10 Ml Syr) 0 ml IVP PRN PRN METHODS: A 21 channel digitized electroencephalogram was performed in the [facility] Med/Surg Floor or ICU. The 10/20 international system of electrode placement was used and bipolar and referential electrode montages were recorded. In addition to EEG the patient was monitored for EKG and lateral/vertical eye movements. Activation procedures of photic stimulation and hyperventilation were performed if applicable. Video was used during activation procedures and during events where applicable. The duration of the recording was 30 minutes. DESCRIPTION OF EEG: The patient was noted to be awake and drowsy during the recording. During maximal wakefulness a 9-Hz posterior background rhythm was present which was well-modulated, symmetrical, reactive to eye opening, and of moderate voltage. With eye opening the background activity changed to a low voltage mixture of alpha, beta, and occasional theta range frequencies. Faster frequencies were present in the bilateral anterior head regions. There was a normal anterior- posterior voltage gradient. During drowsiness, there was attenuation of the posterior dominant background rhythm and vertex waves. No stage II sleep was recorded. Activating Procedures: Photic stimulation was performed which produced no posterior driving response. Hyperventilation was not performed. EKG: EKG revealed normal sinus rhythm. INTERPRETATION: This EEG is normal during the awake and drowsy states as well as during photic stimulation. PRIOR EEG: none CLINICAL CORRELATION: No focal regions of cerebral dysfunction or epileptiform activity was present. Epilepsy remains a clinical diagnosis and a normal EEG does not rule out epilepsy. Clinical correlation is advised. Ann Marie Salomon MD
--- NOTE | 2021-06-24 15:55 | DSE_ITS ---
Date of service: 06/24/21 Time of Service: 15:56 DS: Diagnosis Discharge Diagnosis (1) Acute embolic stroke: Status: Acute (2) Expressive aphasia: Status: Acute (3) Brain mass: Status: Chronic (4) Carotid stenosis, right: Status: Acute (5) Malignant neoplasm metastatic from bladder: Status: Acute (6) COVID-19 ruled out by laboratory testing: Status: Ruled-out (7) Hypokalemia: Status: Acute (8) B12 deficiency: Status: Acute (9) Lymphedema of left lower extremity: Status: Acute Discharge Plan Disposition Patient Disposition: HOME Condition: Stable Discharge Details Reason For Visit: TIA Admit Date/Time: 06/22/21 20:36 Admit Provider: Oliverio Land Attending Provider: Oliverio Land Primary Care Provider: Chapo Menon [facility] Course Hospital Course: Mr Piper is a 80 year old male with PMHx of metastatic bladder cancer s/p radical cystectomy with ileal conduit, as well as h/o prior CVA (not on aspirin or anticoagulation), hypertension, hyperlipidemia, who was [facility] to [facility] on 06/22[facility]21 with recurrent episodes of expressive aphasia and dysarthria. His brain CT w/o contrast demonstrated an area in left parietal lobe, interpreted as calcification vs a small area of hemorrhage, and an MRI was recommended. In light of this, the patient was not initiated on dual antiplatelet therapy at time of presentation. CTA of the head/neck revealed a high grade stenosis in the proximal right internal carotid artery as well as occluded external right carotid artery. The lesion in the left parietal lobe had an appearance of neoplasm. MRI of the brain showed a 10 x 11 mm solitary ring- enhancing lesion in left parietal lobe, c/w neoplasm, without surrounding edema. There was also a small likely embolic CVA in high left frontal lobe. The patient never had arrhythmias on telemetry while here, and his echo did not reveal any explanation for this event. The patients symptoms did recur several times since his hospitalization. He was evaluated by neurology. He was evaluated by neurology, who recommended initiation of baby asa but not plavix or anticoagulation at this time. EEG was done but read is not available at the time of discharge and will need to be followed up as outpatient. He will need extended cardiac monitoring. He is recommended to continue aspirin and statin. He will need to follow up with neurology in 4-6 weeks. The need for extended cardiac monitoring was communicated to his PCP's office. The patient was seen by speech therapy but, as he had no deficits at the time of evaluation, it was felt he would only benefit from follow up with speech therapy prn. He was evaluated by physical therapy, who felt that the patient was at baseline but did recommend a referral for lymphedema therapy - placed on discharge. He was seen by palliative care and is considering his goals of care, but would like to know more about his progrnosis as far as cancer prior to making any decisions. He has an oncology appointment with Dr Wadsworth next week, and his office too was notified of the updates in patients' condition. The patient is medically stable for discharge home today. Care for patient as well as completion of his discharge summary 45 minutes on day of discharge. Home Meds and New Rx's Prescriptions: New aspirin 81 mg Tablet,Delayed Release (Dr/Ec) 81 mg PO DAILY Qty: 0 RF: 0 cyanocobalamin (vitamin B-12) 1,000 mcg capsule 1,000 mcg PO DAILY Qty: 30 RF: 0 Continued atorvastatin 40 MG tablet 40 mg PO DAILY RF: 0 atenolol 25 MG tablet 25 mg PO DAILY RF: 0 sertraline 50 MG tablet 50 mg PO DAILY RF: 0 prochlorperazine maleate 10 mg tablet 10 mg PO Q6H PRN PRNRF: 0 gabapentin 100 mg capsule 100 mg PO TID RF: 0 magnesium citrate Solution 150 ml PO BID PRNQty: 300 RF: 0 Discontinued acetaminophen [Tylenol Arthritis Pain] 650 mg Tablet Extended Release 1,300 mg PO ONCE RF: 0 Discharge Instructions Instructions: Aspirin (By mouth), Ischemic Stroke (DC), Vitamin B12 Deficiency (ED), Stroke (DC) Additional Instructions: Return to the hospital with any fever, bleeding, chest pain, shortness of breath. Follow up with your PCP within one week for placement of the extended neurosurgical physician assistant. Follow up with your oncologist next week as scheduled. Follow up with neurology in 4-6 weeks. Follow up with Speech therapy as needed. Follow up with physical therapy for lymphedema therapy Referrals: [facility] Pall[facility] [Provider Group] Jeimy Contreras [PHYSICAL THERAPIST] - (lymphedema therapy) Chapo Menon [Primary Care Provider] - Savana Wilson [SPEECH LANGUAGE PATHOLOGIST] - James Patten [ NON-[facility] STAFF PHYSICIAN] - Ann Marie Salomon MD [ [facility] STAFF PHYSICIAN] - (4-6 weeks) Activity:: Activity as Tolerated Equipment/Supplies:: No Equipment Needed Diet:: Low Sodium Discharge Orders Discharge Orders: Discharge Order (Routine); Ordered 06/24/21 Ordered By: Deborah Taylor DS: Summary Time Spent with Patient providing and/or coordinating discharge services: Greater than 30 minutes Status at Discharge Functional status at discharge: independent ambulation Overall status at discharge: patient is back to baseline Mental Status: mental status grossly normal Speech and Movement: speech and movement normal Mood: congruent mood Affect: normal affect Exam Narrative Exam Narrative: General: Pleasant elderly male, A&Ox3,no focal deficits at the time of my examination, fluent speech HEENT: EOMI, MMM Heart: RRR Lungs: CTAB Abdomen: soft, nontender, nondistended Extremities: no edema BLE's. Psych Mental Status: mental status grossly normal Speech and Movement: speech and movement normal Mood: congruent mood Affect: normal affect DS: Data Vitals/I&O Vitals and I&O: Vital Signs Temperature 36.9 C 06/24/21 11:48 Temperature Source Tympanic 06/24/21 11:48 Pulse 67 06/24/21 11:48 Pulse Rhythm Regular 06/24/21 10:49 Pulse 71 06/22/21 21:20 Respiratory Rate 15 06/24/21 11:48 Respiratory Effort Non-Labored 06/24/21 10:49 Respiratory Depth Normal 06/24/21 10:49 Respiratory Pattern Normal 06/24/21 10:49 Blood Pressure 116/72 06/24/21 11:48 Blood Pressure Mean 83 06/22/21 21:01 Pulse Oximetry 97 06/24/21 11:48 Oxygen Delivery Method Room Air 06/24/21 11:48 Oxygen Flow Rate 0 06/24/21 11:48 Pain Level 0 06/24/21 11:48 Intake & Output 06/23/21 06/24/21 06/24/21 23:59 11:59 23:59 Intake Total 780 / 1020 240 / 1020 Output Total 625 / 1075 1500 / 1500 Balance -625 / 675 -720 / -480 240 / -480 Intake: Oral 780 / 1020 240 / 1020 Output: Urine 625 / 1075 1500 / 1500 Other: Urine Color Yellow Pale Yellow Urine Appearance Clear Clear Urine Odor None Normal Comment urine from bag appeared to have mucous threads floating in it Voiding Methods Ileal Conduit (Right) Indwelling Catheter Data Completed and Pending Completed studies during hospitalization [Text1]: CT head w/o contrast: Small area of intra-axial hyperdensity in the left parietal lobe, possibly calcium but cannot exclude small area of hemorrhage. Follow-up MRI recommended CXR: No acute pulmonary findings. CTA head/neck; 1. There is a high-grade stenosis in the proximal right internal carotid artery, over 90 percent stenosis. There is heavily calcified plaque at this level. The ipsilateral right external carotid artery appears occluded. Milder stenosis seen at the origin of the left internal carotid artery in the neck, probably 25 percent stenosis. 2. Vertebral arteries are patent. 3. Less than optimal opacification of the arteries with in the brain but no definite occlusion nor obvious high-grade stenosis. There is a 10 x 11 millimeter abnormal enhancing lesion in the left parietal lobe, worrisome for neoplasm. Contrast infused MRI follow-up is recommended. Nodules are noted in the sub apical regions of both lungs, also suspicious for neoplasm. Echo: Normal left ventricular wall thickness and chamber size. Normal estimated ejection fraction, 57%, there are no segmental wall motion abnormalities Normal right ventricular size and systolic function Both atria are normal in size Sclerotic trileaflet aortic valve without regurgitation or stenosis Mitral annular calcification, with trace mitral regurgitation Normal tricuspid valve with trace regurgitation. Estimated right ventricular systolic pressure is normal MRI brain w/w/o contrast: 1. There is 10 x 11 millimeter solitary ring-enhancing lesion left parietal lob e. Suspicious for neoplasm but with only minimal surrounding edema. 2. Small focus of restricted diffusion on DWI evident in the high left frontal lobe, probably embolic. No hemorrhage at this level. No abnormal enhancement at this level. Pending studies at discharge: EEG read Labs on day of discharge: Labs from last 24 hours 06/24/21 06/24/21 07:15 07:15 Sodium 141 Potassium 3.7 Chloride 105 Carbon Dioxide 30.7 Anion Gap 5.3 BUN 10 Creatinine 0.9 Estimated GFR/1.73 m2 >= 60.00 Glucose 89 Hemoglobin A1c 6.2 H Calcium 8.5 Magnesium 1.8 Triglycerides 81 Total Cholesterol 94 LDL Cholesterol, Calc 44 HDL Cholesterol 34 L Vitamin B12 344 TSH 0.72 Preliminary micro results at discharge 06/22/21 17:25 Urine Culture - Preliminary Urine - Reflex from Ua Gram Negative Roberto Gram Negative Roberto#2 PFSH Medical History (Updated 06/24/21 @ 16:25 by Deborah Taylor MD) 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 (Bal[place]) Angina pectoris BPH (benign prostatic hyperplasia) Coronary artery disease Dental caries extensive oral surgery early 2020 Expressive aphasia due to left frontal stroke transientd Former smoker, stopped smoking in distant past Goals of care, counseling/discussion History of snoring Hypertension Palliative care patient POLST (Physician Orders for Life-Sustaining Treatment) Sun-damaged skin Urethral lesion Surgical History History of arthroscopy of knee bilat History of cardiac catheterization History of cataract surgery History of colonoscopy History of tonsillectomy & adnoids x2, then burnt out with [place]. Family History (Updated 06/24/21 @ 09:15 by Pilar Cruz MD) Daughter No problems noted. Other Diabetes Heart disease Lupus Social History (Updated 06/24/21 @ 09:22 by Pilar Cruz MD) Smoking/Tobacco Use Status: Former Tobacco Use Quit Date: 10/01/88 Tobacco: How many years used: 30 Counseling given: other Details: discussed link between smoking and bladder cancer Smoking risk assessment performed?: Yes Alcohol Intake: current Alcohol Intake frequency: 0-2 drinks per day Alcohol type: wine and hard liquor Counseling given: No Drug use: Never Substance use type: does not use Details: tried Hemp oil, Pt states wasn't helpful. 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 [employer] Do you think of yourself as: straight/heterosexual Current gender identity: male What is your relationship status?: How often do you talk on the phone with friends or family?: three or more times per week How often do you get together with friends or relatives?: once per week Panel score (0-1 are the most socially isolated patients): 2 What type of physical activity do you participate in: walking and occasional exercise Duration: 15-30 minutes/day Frequency: 3-4 times per week Special claire needs: No Seatbelt use: always Working smoke detector in home: Yes Fire extinguisher in home: Yes Do you feel safe at home: Yes Do you feel safe in your relationship?: Yes Additional Social history: to Marika, his second , for more than 40 years. Has one daughter from first marriage, Radha, who lives in [place], [place] with her 2 kids. Close to his stepson, Nelson, who lives in [place], [place]. Marika and Amy lived a sailing life until he came down with cancer. He retired at age 72 and they lived in a sailing community in [place]. They are officially [facility] residents, but they have a second home in [place], [place]. Amy tells me that [facility] in [place] wouldn't handle my care any longer. He doesn't un derstand why. He is getting new treatment with Dr Patten and tolerating it. He was not surprised to hear about likely cancer mets to his brain. He reports that ever since he was diagnosed with bladder cancer, he has felt pretty lousy.
--- NOTE | 2021-06-24 17:04 | PDOC.CMDIS ---
- If Service Date Differs Date of service: 06/24/21 Time of Service: 17:04 LACE Index Scoring Tool - Questions: Length of Stay (in days): 2 Acuity (Admit via E.D.?): Yes Comorbidities: Metastatic Solid Tumor E.D. Visits: 2 - Answers: Total Score: 12 Risk of Readmission: High Risk Care Management Discharge Reason for Hospitalization: TIA Discharge Plan: Amy will be discharged home with no new services. He will follow up with his community providers and plan of care and transport with his . Patient/Family Education Needs: Review of discharge instructions, medications, activity, limitations, Ask Me Three
--- NOTE | 2021-06-27 09:22 | PT.INDS ---
Date of service: 06/27/21 PT Notes Visit Reasons: TIA (cardiology) Physical Therapy Inpatient Discharge Summary Date: 06/27/21 Dates of service: 06/24/2021 Referring Doctor: Patrick Taylor MD PT Orders: PT CONSULT: Evaluate and Treat Precautions: Standard Patient Profile/Admitting Diagnosis: Orders received for this 80-year-old male. Patient states that he is a history in the [employer]. He states that he has been otherwise fairly healthy until finding out that he had a brain lesion. Through his cancer treatment he has been losing up to 50 pounds. He woke up recently with a disruption in his speech and was sent to the emergency room. PMHX: Medical History (Updated 06/22/21 @ 21:23 by Oliverio Land MD) Angina pectoris BPH (benign prostatic hyperplasia) Coronary artery disease History of snoring Hypertension Urethral lesion Surgical History (Updated 09/18/19 @ 08:24 by Nataliia Cosme RN) History of arthroscopy of knee bilat History of cardiac catheterization History of cataract surgery History of colonoscopy History of tonsillectomy & adnoids x2, then burnt out with [place]. Social History/Home Situation: Patient lives at home with his . He has home also in the [facility] which they stay in the winter Equipment Owned/DME: Cane and a 2 wheel walker Subjective: NT. See most recent ENTERTAINMENT DANCER notes. Objective: NT. See most recent ENTERTAINMENT DANCER notes. Mental Status: NT. See most recent ENTERTAINMENT DANCER notes. Pain: NT. See most recent ENTERTAINMENT DANCER notes. ROM: Right Upper Extremity: Within functional limits Left Upper Extremity: Within functional limits Right Lower Extremity: Within functional limits Left Lower Extremity: Within functional limits Strength: Right Upper Extremity: Globally 4+ out of 5 Left Upper Extremity: Globally 4+ out of 5 Right Lower Extremity: Globally 5-5 Left Lower Extremity: Globally 5 out of 5 Bed Mobility/Transfers: Patient able to assume bed mobility including linen independently Supine-sit: Independent Sit-stand: Contact-guard assist Stand-sit: Contact-guard assist Gait: With contact-guard assist in the aid of a 2 wheeled walker patient able to ambulate 20 feet within his room Balance: Static Sitting: Normal Dynamic Sitting: Good Static Standing: Good Dynamic Standing: Fair ASSESSMENT: Patient is a 80-year-old male with history of good physical health Admitted with possible TIA and ongoing brain lesion Patient presents with the following impairment level findings: Assistance needed with transfers, mild balance impairment, ambulation intolerance Goals: Goals X1 week 1. Gait independent with 2 wheeled walker up to 100 feet NOT MET 2. Stairs independent up to 3 steps NOT MET 3. Independent in Home program NOT MET DISCHARGE RECOMMENDATIONS: To home once medically stable. Patient has been seen by a lymphedema specialist in the past it has been recommended that patient pursue some type of outpatient treatment for his left lower extremity lymphedema. This will be coordinated with Julieta Contreras DPT to see if that is an option. TREATMENT CODE/TIME: NC. Thank you for the opportunity to participate in the care of this patient. Jeimy Contreras PT, DPT, CLT [facility] [place], [place]
== END 2021-06-24 17:15 | disposition home or self-care (01) | DRG 65 ==
LOC: ER 16:17 → MS 21:56
PROVIDERS: Internal Medicine; Admitting Provider Family Medicine; Emergency Provider Physician Assistant; PCP Family Medicine; Visit Provider Family Medicine
DX: I63.89 Other cerebral infarction (principal); C77.5 Secondary and unspecified malignant neoplasm of intrapelvic lymph nodes; C79.31 Secondary malignant neoplasm of brain; R47.01 Aphasia; C67.9 Malignant neoplasm of bladder, unspecified; Z90.6 Acquired absence of other parts of urinary tract; I10 Essential (primary) hypertension; I25.119 Atherosclerotic heart disease of native coronary artery with unspecified angina pectoris; Z20.822 Contact with and (suspected) exposure to COVID-19; I65.21 Occlusion and stenosis of right carotid artery; R47.1 Dysarthria and anarthria; E78.5 Hyperlipidemia, unspecified; F32.9 Major depressive disorder, single episode, unspecified; K02.9 Dental caries, unspecified; Z87.891 Personal history of nicotine dependence; G62.0 Drug-induced polyneuropathy; T45.1X5A Adverse effect of antineoplastic and immunosuppressive drugs, initial encounter; E53.8 Deficiency of other specified B group vitamins; E87.6 Hypokalemia; I89.0 Lymphedema, not elsewhere classified
CPT/HCPCS: 36415; 36416; 70496; 70498; 70553; 80048; 80053; 80061; 82962; 87077; 87635; 93005; 93306; 95816; 95819; 96365; 97162; 99223; 99285; 70450; 71046; 81003; 81015; 82607; 83036; 83735; 84443; 84484; 85025; 87086; 87186; 92523; 93010; 99222; 99233; 99239; J0696; J3420; J3490

== ENCOUNTER → 2021-06-23 08:09 | Outpatient (BNVA) | payer MEDICARE, BC, SELFPAY | PROVIDERS: PCP Family Medicine; Referring Provider Family Medicine; Visit Provider Psychiatry & Neurology Neurology | DX: R69 Illness, unspecified (principal) ==

== ENCOUNTER 2021-06-28 02:50 | Outpatient (RCR) | payer MEDICARE, BC, SELFPAY ==
[2021-06-14] MEDS: Normal Saline Flush 10 ML SYR IVP (08:29)
[2021-06-14 08:42] LABS: Abs Immature Grans 0.04 10^3/uL (0.0-0.06); Absolute Basophil Count 0.08 10^3/uL (0.0-0.2); Absolute Eosinophil Count 0.74 10^3/uL (0.0-0.7); Absolute Monocyte Count 0.68 10^3/uL (0.1-0.8); Absolute Neutrophil Count 6.12 10^3/uL (1.2-6.7); Basophils % 0.8; Eosinophils % 7.6; HCT 37.2 % (40.0-50.0); HGB 12.2 g/dL (13.5-17.5); Immature Grans % 0.4; Lymphocytes % 21.5; MCH 31.6 pg (27.0-33.0); MCHC 32.8 % (32.0-36.0); MCV 96.4 fL (80-95); MPV 9.4 fL (8.0-11.0); Neutrophils % 62.7; Nucleated RBC 0 %; Platelet Count 200 10^3/uL (130-400); RBC 3.86 10^6/uL (4.36-5.78); RDW 12.6 % (11.8-14.1); RDW-SD 44.5 fL; WBC 9.76 10^3/uL (4.4-10.8)
[2021-06-14 10:56] LABS: ALT 22 U/L (16-63); AST 20 U/L (15-37); Alkaline Phosphatase 92 U/L (46-116); Anion Gap 4.8 mmol/L (3-11); BUN 19 mg/dL (7-18); Bilirubin, Total 0.4 mg/dL (0.2-1.0); CO2 30.2 mmol/L (21.0-32.0); CREATININE 1.2 mg/dL (0.70-1.30); Calcium 9.3 mg/dL (8.5-10.1); Chloride 104 mmol/L (98-107); Estimated GFR 58.56 (mL/min/1.73m2); Glucose 183 mg/dL (74-106); Potassium 3.6 mmol/L (3.5-5.1); Sodium 139 mmol/L (136-145)
[2021-06-21] MEDS: Normal Saline Flush 10 ML SYR IVP (08:54)
[2021-06-21 09:04] LABS: Abs Immature Grans 0.03 10^3/uL (0.0-0.06); Absolute Basophil Count 0.05 10^3/uL (0.0-0.2); Absolute Eosinophil Count 0.18 10^3/uL (0.0-0.7); Absolute Lymphocyte Count 1.19 10^3/uL (1.2-3.4); Absolute Monocyte Count 0.73 10^3/uL (0.1-0.8); Basophils % 0.6; HCT 31.2 % (40.0-50.0); HGB 10.3 g/dL (13.5-17.5); Immature Grans % 0.3; Lymphocytes % 13.4; MCH 31.7 pg (27.0-33.0); MPV 9.4 fL (8.0-11.0); Monocytes % 8.2; Neutrophils % 75.5; Nucleated RBC 0 %; Platelet Count 187 10^3/uL (130-400); RBC 3.25 10^6/uL (4.36-5.78); RDW 12.7 % (11.8-14.1); RDW-SD 45.7 fL; WBC 8.88 10^3/uL (4.4-10.8)
[2021-06-21 09:23] LABS: ALT 38 U/L (16-63); AST 29 U/L (15-37); Albumin 2.7 g/dL (3.4-5.0); Alkaline Phosphatase 77 U/L (46-116); Anion Gap 7.1 mmol/L (3-11); BUN 21 mg/dL (7-18); Bilirubin, Total 0.5 mg/dL (0.2-1.0); CO2 29.9 mmol/L (21.0-32.0); Calcium 8.7 mg/dL (8.5-10.1); Chloride 104 mmol/L (98-107); Glucose 147 mg/dL (74-106); Potassium 3.2 mmol/L (3.5-5.1); Sodium 141 mmol/L (136-145)
[2021-06-28] MEDS: Normal Saline Flush 10 ML SYR IVP (08:56)
[2021-06-28 08:57] LABS: Abs Immature Grans 0.07 10^3/uL (0.0-0.06); Absolute Basophil Count 0.07 10^3/uL (0.0-0.2); Absolute Eosinophil Count 0.15 10^3/uL (0.0-0.7); Absolute Lymphocyte Count 1.31 10^3/uL (1.2-3.4); Absolute Monocyte Count 0.66 10^3/uL (0.1-0.8); Basophils % 0.9; Eosinophils % 1.9; HCT 33.3 % (40.0-50.0); HGB 10.9 g/dL (13.5-17.5); Immature Grans % 0.9; Lymphocytes % 16.7; MCH 31.1 pg (27.0-33.0); MCHC 32.7 % (32.0-36.0); MCV 95.1 fL (80-95); MPV 9.3 fL (8.0-11.0); Monocytes % 8.4; Neutrophils % 71.2; Nucleated RBC 0 %; Platelet Count 266 10^3/uL (130-400); RDW 12.4 % (11.8-14.1); RDW-SD 42.9 fL; WBC 7.86 10^3/uL (4.4-10.8)
[2021-06-28 09:10] LABS: ALT 37 U/L (16-63); AST 25 U/L (15-37); Alkaline Phosphatase 75 U/L (46-116); Anion Gap 8.6 mmol/L (3-11); BUN 14 mg/dL (7-18); Bilirubin, Total 0.5 mg/dL (0.2-1.0); CO2 29.4 mmol/L (21.0-32.0); CREATININE 1.2 mg/dL (0.70-1.30); Calcium 8.8 mg/dL (8.5-10.1); Chloride 101 mmol/L (98-107); Estimated GFR 58.56 (mL/min/1.73m2); Glucose 121 mg/dL (74-106); Potassium 3.7 mmol/L (3.5-5.1); Sodium 139 mmol/L (136-145); Total Protein 7.4 g/dL (6.4-8.2)
== END 2021-06-30 23:59 | disposition home or self-care (01) ==
LOC: INF 02:50
PROVIDERS: PCP Family Medicine; Visit Provider Internal Medicine
DX: C79.10 Secondary malignant neoplasm of unspecified urinary organs (principal)
CPT/HCPCS: 36415; 80053; 85025

== ENCOUNTER 2021-07-26 01:09 | Outpatient (RCR) | payer MEDICARE, BC, SELFPAY ==
[2021-07-12 08:46] LABS: Abs Immature Grans 0.02 10^3/uL (0.0-0.06); Absolute Basophil Count 0.07 10^3/uL (0.0-0.2); Absolute Eosinophil Count 0.03 10^3/uL (0.0-0.7); Absolute Lymphocyte Count 1.94 10^3/uL (1.2-3.4); Absolute Monocyte Count 0.57 10^3/uL (0.1-0.8); Absolute Neutrophil Count 3.09 10^3/uL (1.2-6.7); Basophils % 1.2; Eosinophils % 0.5; HCT 33.9 % (40.0-50.0); Immature Grans % 0.3; Lymphocytes % 33.9; MCH 30.9 pg (27.0-33.0); MCHC 32.4 % (32.0-36.0); MCV 95.2 fL (80-95); MPV 8.9 fL (8.0-11.0); Neutrophils % 54.1; Nucleated RBC 0 %; Platelet Count 263 10^3/uL (130-400); RBC 3.56 10^6/uL (4.36-5.78); RDW 14.2 % (11.8-14.1); RDW-SD 47.3 fL; WBC 5.72 10^3/uL (4.4-10.8)
[2021-07-12 09:03] LABS: ALT 32 U/L (16-63); AST 25 U/L (15-37); Albumin 3.2 g/dL (3.4-5.0); Alkaline Phosphatase 87 U/L (46-116); Anion Gap 9.6 mmol/L (3-11); BUN 14 mg/dL (7-18); Bilirubin, Total 0.5 mg/dL (0.2-1.0); CO2 28.4 mmol/L (21.0-32.0); Calcium 8.3 mg/dL (8.5-10.1); Chloride 104 mmol/L (98-107); Glucose 115 mg/dL (74-106); Potassium 3.5 mmol/L (3.5-5.1); Sodium 142 mmol/L (136-145); Total Protein 7.3 g/dL (6.4-8.2)
[2021-07-12] MEDS: Normal Saline Flush 10 ML SYR IVP (14:36)
[2021-07-19 12:14] LABS: Abs Immature Grans 0.02 10^3/uL (0.0-0.06); Absolute Basophil Count 0.05 10^3/uL (0.0-0.2); Absolute Eosinophil Count 0.01 10^3/uL (0.0-0.7); Absolute Lymphocyte Count 1.43 10^3/uL (1.2-3.4); Absolute Neutrophil Count 3.33 10^3/uL (1.2-6.7); Basophils % 0.9; Eosinophils % 0.2; HCT 34.6 % (40.0-50.0); HGB 11.3 g/dL (13.5-17.5); Immature Grans % 0.4; Lymphocytes % 26.3; MCH 31.2 pg (27.0-33.0); MCHC 32.7 % (32.0-36.0); MCV 95.6 fL (80-95); MPV 8.9 fL (8.0-11.0); Neutrophils % 61.2; Nucleated RBC 0 %; Platelet Count 204 10^3/uL (130-400); RBC 3.62 10^6/uL (4.36-5.78); RDW 14.6 % (11.8-14.1); RDW-SD 49.9 fL; WBC 5.44 10^3/uL (4.4-10.8)
[2021-07-19 12:28] LABS: ALT 26 U/L (16-63); AST 22 U/L (15-37); Albumin 3.3 g/dL (3.4-5.0); Alkaline Phosphatase 81 U/L (46-116); Anion Gap 6.4 mmol/L (3-11); BUN 15 mg/dL (7-18); Bilirubin, Total 0.7 mg/dL (0.2-1.0); CO2 31.6 mmol/L (21.0-32.0); CREATININE 1.1 mg/dL (0.70-1.30); Calcium 8.8 mg/dL (8.5-10.1); Chloride 102 mmol/L (98-107); Glucose 175 mg/dL (74-106); Potassium 3.8 mmol/L (3.5-5.1); Sodium 140 mmol/L (136-145); Total Protein 7.2 g/dL (6.4-8.2)
[2021-07-19 14:47] LABS: PHOSPHORUS 2.6 mg/dL (2.6-4.7)
[2021-07-26 08:36] LABS: Abs Immature Grans 0.03 10^3/uL (0.0-0.06); Absolute Basophil Count 0.04 10^3/uL (0.0-0.2); Absolute Eosinophil Count 0.07 10^3/uL (0.0-0.7); Absolute Lymphocyte Count 1.63 10^3/uL (1.2-3.4); Absolute Monocyte Count 0.58 10^3/uL (0.1-0.8); Absolute Neutrophil Count 2.46 10^3/uL (1.2-6.7); Basophils % 0.8; Eosinophils % 1.5; HCT 34.3 % (40.0-50.0); HGB 11.2 g/dL (13.5-17.5); Immature Grans % 0.6; Lymphocytes % 33.9; MCH 31.4 pg (27.0-33.0); MCHC 32.7 % (32.0-36.0); MCV 96.1 fL (80-95); MPV 9.5 fL (8.0-11.0); Monocytes % 12.1; Neutrophils % 51.1; Nucleated RBC 0 %; Platelet Count 232 10^3/uL (130-400); RBC 3.57 10^6/uL (4.36-5.78); RDW 14.9 % (11.8-14.1); RDW-SD 50.5 fL; WBC 4.81 10^3/uL (4.4-10.8)
[2021-07-26 08:51] LABS: ALT 26 U/L (16-63); AST 22 U/L (15-37); Albumin 3.2 g/dL (3.4-5.0); Alkaline Phosphatase 89 U/L (46-116); Anion Gap 7.1 mmol/L (3-11); BUN 15 mg/dL (7-18); Bilirubin, Total 0.9 mg/dL (0.2-1.0); CO2 31.9 mmol/L (21.0-32.0); Chloride 104 mmol/L (98-107); Glucose 116 mg/dL (74-106); Sodium 143 mmol/L (136-145); Total Protein 7.2 g/dL (6.4-8.2)
== END 2021-07-31 23:59 | disposition home or self-care (01) ==
LOC: INF 01:09
PROVIDERS: PCP Family Medicine; Visit Provider Internal Medicine
DX: C79.10 Secondary malignant neoplasm of unspecified urinary organs (principal); Z79.899 Other long term (current) drug therapy
CPT/HCPCS: 36415; 80053; 84100; 85025

== ENCOUNTER 2021-08-10 01:07 | Outpatient (CLI) | payer MEDICARE, BC, SELFPAY ==
--- NOTE | 2021-08-10 09:15 | DI.MRI_ITS ---
Exam(s) MR BRAIN WO/W EXAM: MR BRAIN WO/W CLINICAL HISTORY: MELIGNANT NEOPLASM OF BRAIN C79.31 STEREOTACTIC RADIOSURGERY PLANNING TECHNIQUE: Multiplanar multisequence MRI of the brain was performed. Both noninfused and contrast i nfused sequences were performed. IV Contrast injected was 16 cc Dotarem. COMPARISON: MR MR BRAIN WO/W from 06/23/2021 MR MR BRAIN WO/W from 06/23/2021 FINDINGS: CEREBRAL PARENCHYMA: Previously described ring-enhancing lesion left parietal lobe has decreased in s ize, previously measuring approximately 10 x 9 millimeters and presently measuring approximately 6 x 4 millimeters. The amount of surrounding edema has also decreased. There are no new significant findings in the cerebellar hemispheres nor within iam, midbrain, and th juhi. Mild periventricular signal abnormality around the frontal horns of both lateral ventricles is unchanged. Small focus of subcortical white matter FLAIR bright signal in the right parietal lobe is unchanged, not associated with abnormal enhancement There are no ring enhancing lesions in the brain. There is no abnormal meningeal enhancement. PITUITARY GLAND: No mass nor parasellar abnormality. No obvious abnormality in the cavernous sinuses. FLOW VOIDS: The expected flow void are noted. No evidence of obvious aneurysm nor obvious vascular ma lformation. PARANASAL SINUSES: Mucosal thickening has increased in both maxillary sinuses and air-fluid levels in both maxillary sinuses now evident. The sphenoid sinuses are clear. There is some mucosal signal abn ormality in the ethmoidal air cells bilaterally. Frontal sinuses are clear. ORBITS: No obvious abnormal findings. IMPRESSION: 1. Significant decrease in size of the solitary ring-enhancing lesion in the brain which is in the hi gh left parietal region. There are no new ring-enhancing lesions in the brain nor new abnormal mening eal enhancement. 2. Other intracranial findings are stable. 3. Increasing mucosal thickening and fluid in the maxillary sinuses. DATA REPOSITORY:
[2021-08-10] MEDS: Gadoterate meglumine 20 ML VIAL 16 ML IVP (09:38)
[2021-08-10] MEDS: Normal Saline Flush 10 ML SYR IVP (09:38)
== END 2021-08-10 01:27 ==
PROVIDERS: PCP Family Medicine; Visit Provider Radiology Radiation Oncology
DX: C79.31 Secondary malignant neoplasm of brain (principal); J32.0 Chronic maxillary sinusitis
CPT/HCPCS: 70553

== ENCOUNTER 2021-08-18 09:54 | Inpatient (IN) | payer MEDICARE, BC, SELFPAY ==
[2021-08-18] VITALS (124 sets, daily range): BP systolic 73–167; BP diastolic 38–112; PULSE 58–144; RESP 10–53; TEMP 36.3–36.8; O2SAT 87–100
--- NOTE | 2021-08-18 09:45 | RT.EKG_ITS ---
APPROVED REPORT Exam: Resting ECG Reason for Exam: stroke symptoms Patient Location: E HR:107 bpm ECG Measurements Heart Rate 107 AXIS WV 206 P 47 QRSd 83 QRS 65 QT 300 T -81 QTc 399 Conclusion Sinus tachycardia...rate> 99 Repol abnrm suggests ischemia, diffuse leads...ST-T neg, ant/lat/inf
--- NOTE | 2021-08-18 09:45 | DI.CT_ITS ---
Exam(s) CT HEAD - STROKE PROTOCOL EXAM: CT HEAD - STROKE PROTOCOL CLINICAL HISTORY: right weakness, seizure. TECHNIQUE: Imaging Protocol: Axial computed tomography images with coronal and sagittal reformatted images were created and reviewed COMPARISON: CT CT BRAIN NECK CTA from 06/22/2021 FINDINGS: There are no skull fractures. Fluid in both maxillary sinuses noted with sparing of the other paran ramon sinuses. There is no evidence of intracranial hemorrhage, new mass effect, or shift of midline structures. Th ere are no extra-axial fluid collections. The ventricles are not enlarged or shifted and there is no blood within the ventricular system nor within the basal cisterns. See described lesion high left parietal region is again noted, appearing somewhat smaller than on the previous study and without surrounding edema. No other significant focal findings. IMPRESSION: Small lesion in the high left parietal lobe appears smaller than on the prior CT study of 06/22/21. There is calcification in both ophthalmic arteries. Please note that prior CTA study revealed 90 percent stenosis in the proximal right internal carotid artery in the neck. Approximately 25 percent on the left side. Acute sinusitis with fluid levels in both maxillary sinuses noted. Report called by myself to ER physician. RADIATION DOSE DELIVERED: 828.79mGy.cm Total DLP DATA REPOSITORY: All CT scans at this facility are submitted to the National Radiology Data Registry (NRDR) Dose Index Registry (DIR) with the [employer] (A[employer]). RADIATION OPTIMIZATION: All CT scans at this facility use at least one of these dose optimization te chniques: automated exposure control; mA and/or kV adjustment per patient size (includes targeted exa ms where dose is matched to clinical indication); or iterative reconstruction.
[2021-08-18] MEDS: LORazepam 2 MG/ML VIAL 1 MG IVP ×2 (10:05→10:14)
[2021-08-18] MEDS: levETIRAcetam 1,000 MG in Normal Saline 100 ML 400 MG IVPB ×2 (10:10→21:53)
--- NOTE | 2021-08-18 10:16 | W.ED.GENAD ---
Discharge Plan Disposition Patient Disposition: [facility] INPATIENT Condition: Serious Discharge Details Clinical Impression: Seizure, Brain mass Admit Date/Time: 08/18/21 12:51 Admit Provider: Gilberto Monae Attending Provider: Gilberto Monae Primary Care Provider: Chapo Menon ED Provider: Darrel Covarrubias Discharge Data Discharge Date/Time-TO BE ENTERED AT DEPARTURE: 08/18/21 13:55 Medical Decision Making 1022-- 80 year old with a past medical history significant for metastatic bladder cancer, brain lesion noted while he was recently hospitalized for CVA. He has since followed up with oncology and treated with chemotherapy. Patient with new onset right-sided tremor since this morning, involving difficulty with speech noted by EMS. Patient seen immediately on arrival. He is in critical condition on arrival. Patient is hypertensive and tachycardic. Patient is alert and able to respond but has full body tonic-clonic involuntary activity, right side greater than left. Exam is consistent with seizure. Patient also with weakness right upper extremity patient given Ativan 2 mg IV Keppra bolus of 1 g. I have ordered fosphenytoin load. Concern for seizure secondary to brain lesion. Consider acute hemorrhage. Plan to obtain CT of the head as soon as seizure activity adequately controlled. Screening EKG was reviewed and interpreted by me: Please see report, sinus tachycardia 107 bpm, ST depressions noted inferior laterally leads II, III, aVF and V4 to V6. These are new compared to prior. --patient was reassessed and seizure activity much improved, continues to have subtle twitch intermittently right leg. Now somnolent from ativan - maintaining airway. Vitals improved. 1048 -- CT of the head was interpreted by radiology: IMPRESSION: Small lesion in the high left parietal lobe appears smaller than on the prior CT study of 06/22/21. There is calcification in both ophthalmic arteries. Please note that prior CTA study revealed 90 percent stenosis in the proximal right internal carotid artery in the neck. Approximately 25 percent on the left side. Acute sinusitis with fluid levels in both maxillary sinuses noted. I called [facility] [place] to request transfer given history of metastatic disease and concern for new onset seizure related to brain lesion, [facility] is at capacity and refuses to accept patient in transfer. I will consult [facility] neurology. Will treat sinusitis with unasyn 3g IV. -- Patient had episode of hypotension with SBP 89, LR 500ml given and BP improved on reassessment. 1227 -- Spoke with Dr. Sanz - she recommends MRI brain w/wo and EEG. She will consult on patient. -- Spoke with hospitalist who will admit. HPI General Mode of arrival: ambulatory. Date/Time Provider Initiated Documentation: 08/18/21 10:02. Limitations to Documentation: no limitations. Information obtained by: patient. HPI Narrative: 80 year old with a past medical history significant for metastatic bladder cancer, brain lesion noted while he was recently hospitalized for CVA, returns with new onset tremor and weakness of his right upper extremity. History and review of systems limited secondary to acuity of condition. Per EMS, patient's family noted he had right upper extremity tremor that developed this morning. EMS appreciated right upper extremity weakness on exam and also note some difficulty with word finding en route. Fast ED score noted to be 5. Related Data Home Medications Medication Instructions Recorded Confirmed atenolol 25 mg PO DAILY tab-cap 03/10/16 08/18/21 atorvastatin 40 mg PO DAILY tab-cap 03/10/16 08/18/21 sertraline 50 mg PO DAILY tab-cap 04/13/16 08/18/21 gabapentin 100 mg PO TID 06/19/21 08/18/21 magnesium citrate 150 ml PO BID PRN #300 ml 06/19/21 08/18/21 prochlorperazine maleate 10 mg PO Q6H PRN PRN 06/19/21 07/07/21 aspirin 81 mg PO DAILY #0 tab 06/24/21 08/18/21 cyanocobalamin (vitamin B-12) 1,000 mcg PO DAILY #30 cap 06/24/21 08/18/21 docusate sodium 100 mg capsule 100 mg PO DAILY 07/07/21 08/18/21 Previous Rx's Medication Instructions Recorded magnesium citrate 150 ml PO BID PRN #300 ml 06/19/21 aspirin 81 mg PO DAILY #0 tab 06/24/21 cyanocobalamin (vitamin B-12) 1,000 mcg PO DAILY #30 cap 06/24/21 Allergies Allergy/AdvReac Type Severity Reaction Status Date / Time lisinopril AdvReac pt reports Verified 08/18/21 10:26 elevated potassium General YAZ: 2 Review of Systems Narrative: Review of systems limited secondary to acuity of condition, patient denies pain or shortness of breath [facility] Active Problem List (Updated 08/19/21 @ 20:17 by Darrel Covarrubias MD) Seizure (Acute) Brain mass (Acute) Hypomagnesemia (Acute) Septic shock (Acute) Hypotension (Acute) Bacteriuria with pyuria (Acute) Focal motor epilepsy (Acute) Status epilepticus (Acute) Lymphedema of left lower extremity (Acute) B12 deficiency (Acute) Hypokalemia (Acute) POLST (Physician Orders for Life-Sustaining Treatment) (Acute) Sun-damaged skin (Acute) Former smoker, stopped smoking in distant past (Acute) Adverse drug effect (Chronic) Dental caries (Acute) Expressive aphasia (Acute) Goals of care, counseling/discussion (Acute) Palliative care patient (Acute) Carotid stenosis, right (Acute) DVT prophylaxis (Acute) Discharge planning issues (Acute) Acute embolic stroke (Acute) Brain mass (Chronic) Malignant neoplasm metastatic from bladder (Acute) Acute UTI (Acute) Aphasia (Acute) TIA (transient ischemic attack) (Acute) Constipation (Acute) History of bladder cancer (Acute) Maintenance chemotherapy (Acute) 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 (Acute) Urinary retention (Acute) Frequency of micturition (Acute 03/10/16) 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 Family History Daughter No problems noted. Other Diabetes Heart disease Lupus Social History Smoking/Tobacco Use Status: Former Tobacco Use Quit Date: 10/01/88 Tobacco: How many years used: 30 Counseling given: other Details: discussed link between smoking and bladder cancer Smoking risk assessment performed?: Yes Alcohol Intake: current Alcohol Intake frequency: 0-2 drinks per day Alcohol type: wine and hard liquor Counseling given: No Drug use: Never Substance use type: does not use Details: tried Hemp oil, Pt states wasn't helpful. 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 [employer] Do you think of yourself as: straight/heterosexual Current gender identity: male What is your relationship status?: How often do you talk on the phone with friends or family?: three or more times per week How often do you get together with friends or relatives?: once per week Panel score (0-1 are the most socially isolated patients): 2 What type of physical activity do you participate in: walking and occasional exercise Duration: 15-30 minutes/day Frequency: 3-4 times per week Special claire needs: No Seatbelt use: always Working smoke detector in home: Yes Fire extinguisher in home: Yes Do you feel safe at home: Yes Do you feel safe in your relationship?: Yes Additional Social history: to Marika, his second , for more than 40 years. Has one daughter from first marriage, Radha, who lives in [place], [place] with her 2 kids. Close to his stepsonNelson, who lives in [place], [place]. Aileen lived a sailing life until he came down with cancer. He retired at age 72 and they lived in a sailing community in [place]. They are officially [facility] residents, but they have a second home in [place], [place]. Amy tells me that [facility] in [place] wouldn't handle my care any longer. He doesn't understand why. He is getting new treatment with Dr Patten and tolerating it. He was not surprised to hear about likely cancer mets to his brain. He reports that ever since he was diagnosed with bladder cancer, he has felt pretty lousy. Exam Const General: acute distress Orientation: alert and awake HENMT Head: normocephalic and atraumatic Mouth: moist mucous membranes Eyes Conjunctivae: normal conjunctivae Sclera: normal sclerae EOM: EOM intact bilaterally Neck Neck: trachea midline and supple Resp Auscultation: clear to auscultation bilaterally, no rales, no rhonchi and no wheezes Cardio Jugular venous pressure: no JVD Rate: tachycardic Rhythm: regular rhythm GI Palpation: soft, not firm, no guarding, no masses, not rigid and nontender Skin General skin exam: no rashes or lesions noted Neuro General: patient alert, patient awake and tone normal Cranial Nerves: PERRL Cognition: normal cognition Other: Patient with continuous involuntary tonic-clonic movements of all extremities right greater than left Extrem General: no edema Psych Appearance: grossly normal Mental Status: mental status grossly normal Speech and Movement: speech and movement normal Critical Care Time Critical Care Time Critical Care Time: Yes Total Critical Care Time: 45 Attestation: I spent greater than 45 minutes addressing this patient's immediate life threats. Please see MDM section of note. This time was spent engaged in work directly related to the patient's care, exclusive of separate procedures, and failure to initiate these interventions would have likely resulted in clinically significant or life threatening deterioration in the patient's condition.
[2021-08-18 10:24] LABS: Abs Immature Grans 0.04 10^3/uL (0.0-0.06); Absolute Basophil Count 0.11 10^3/uL (0.0-0.2); Absolute Eosinophil Count 0.23 10^3/uL (0.0-0.7); Absolute Monocyte Count 1.13 10^3/uL (0.1-0.8); Basophils % 0.9; Eosinophils % 1.9; HCT 34.7 % (40.0-50.0); HGB 11.4 g/dL (13.5-17.5); Immature Grans % 0.3; Lymphocytes % 36.4; MCH 31.5 pg (27.0-33.0); MCHC 32.9 % (32.0-36.0); MCV 95.9 fL (80-95); Monocytes % 9.3; Neutrophils % 51.2; Nucleated RBC 0 %; Platelet Count 269 10^3/uL (130-400); RBC 3.62 10^6/uL (4.36-5.78); RDW 16.5 % (11.8-14.1); RDW-SD 57.3 fL
[2021-08-18 10:36] LABS: ALT 28 U/L (16-63); AST 28 U/L (15-37); Albumin 3.3 g/dL (3.4-5.0); Alkaline Phosphatase 101 U/L (46-116); Anion Gap 20.4 mmol/L (3-11); BUN 20 mg/dL (7-18); Bilirubin, Total 0.7 mg/dL (0.2-1.0); CO2 17.6 mmol/L (21.0-32.0); CREATININE 1.3 mg/dL (0.70-1.30); Chloride 103 mmol/L (98-107); Estimated GFR 53.39 (mL/min/1.73m2); Glucose 147 mg/dL (74-106); Magnesium 1.5 mg/dL (1.8-2.4); Potassium 5.1 mmol/L (3.5-5.1); Sodium 141 mmol/L (136-145); Total Protein 7.6 g/dL (6.4-8.2)
[2021-08-18 10:37] LABS: Troponin I < 0.05 ng/mL (<0.06)
[2021-08-18 10:44] LABS: Source Nasal/Nares
[2021-08-18] MEDS: Lactated Ringers 500 ML 1000 ML IV (11:05)
[2021-08-18 11:10] LABS: Bilirubin Negative (Negative); Blood Negative (Negative); Clarity Clear (Clear); Glucose Negative (Negative); Ketones Negative (Negative); Leukocyte Esterase Trace (Negative); Nitrite Negative (Negative); Specific Gravity 1.025 (1.005-1.025); Urobilinogen 0.2 EU/dL (Up TO 0.2)
[2021-08-18 11:17] LABS: Bacteria Rare HPF (Negative); C & S Indicated? Yes; Casts 3-5 Hyaline LPF (Negative); Crystals Negative HPF (Negative); Epithelial Cells Rare HPF (Negative); Mucus Negative (Negative); RBC Negative HPF (0-2)
[2021-08-18] MEDS: AMPICILLIN/SULBACTAM 3 GM in Normal Saline 100 ML IVPB (11:29)
[2021-08-18] MEDS: Lactated Ringers 500 ML 125 ML IV (11:41)
--- NOTE | 2021-08-18 12:00 | DI.MRI_ITS ---
Exam(s) MR BRAIN WO/W EXAM: MR BRAIN WO/W CLINICAL HISTORY: brain mass, new seizure activity TECHNIQUE: Multiplanar multisequence MRI of the brain was performed. Both noninfused and contrast i nfused sequences were performed. IV Contrast injected was cc Dotarem. COMPARISON: Prior brain MRI scan 08/10/2021. Prior CT scans, most recent being earlier today. FINDINGS: CEREBRAL PARENCHYMA: No evidence of intracranial hemorrhage, mass effect nor shift of midline structu re. No extraaxial fluid collections. Ventricles are not enlarged nor shifted. Previously described white matter signal foci are basically unchanged. The Enhancing lesion in the left parietal lobe is again noted it appears perhaps 1 millimeter larger than the prior study of 08/10/2021. No prominent surrounding edema. There are no new additional ring enhancing lesions in the brain. There is no abnormal meningeal enha ncement. DWI: No signal abnormality to suggest restricted diffusion. PITUITARY GLAND: No mass nor parasellar abnormality. No obvious abnormality in the cavernous sinuses. FLOW VOIDS: The expected flow void are noted. No evidence of obvious aneurysm nor obvious vascular ma lformation. PARANASAL SINUSES: Mucosal thickening and fluid levels in both maxillary sinuses, more so than previo us, consistent with acute sinusitis. Also mucosal thickening in the ethmoid air cells bilaterally. Frontal sinuses are clear as are the sphenoid sinuses. ORBITS: No obvious abnormal findings. IMPRESSION: 1. The size of the left parietal enhancing lesion has minimally increased. There is no surrounding e ruma. 2. Other white matter findings are stable. 3. No evidence of acute intracranial hemorrhage or acute infarct. DATA REPOSITORY:
[2021-08-18] MEDS: Normal Saline Flush 10 ML SYR IVP ×2 (13:32→14:00)
[2021-08-18] MEDS: Gadoterate meglumine 20 ML VIAL 16 ML IVP (13:32)
[2021-08-18] MEDS: Lactated Ringers 1,000 ML 1000 ML IV ×2 (14:00→15:00)
[2021-08-18 16:16] LABS: Lactate 1.8 mmol/L (0.6-1.4)
[2021-08-18] MEDS: PIPERACILLIN/TAZO 4.5 GM in Normal Saline 100 ML IVPB (16:45)
[2021-08-18] MEDS: Normal Saline-STERILE FIELD 0.9% 10 ML SYR (17:02)
--- NOTE | 2021-08-18 17:06 | W.NEUROCONSU ---
Date of service: 08/18/21 Time of Service: 17:06 Assessment and Plan Assessment and plan (1) Status epilepticus: Status: Acute (2) Focal motor epilepsy: Status: Acute Assessment and plan: Mr. Piper is a 80 year-old, right-handed man who was admitted with right hemibody focal motor status epilepticus, now resolved. Risk factors include prior ischemic stroke and small metastatic brain mass that has been diminishing in size. Continue levetiracetam 1000mg BID. He just had updated brain MRI imaging last week, but given change in status, it would be prudent to repeat w/wo. Continue aspirin 81mg daily - convert to FL in unable to take PO. Please call with any further questions or concerns. History of Present Illness History of Present Illness Chief Complaint: seizure Narrative: Handedness: right. Mr. Piper is a 80 year-old man with hypertension, hyperlipidemia, metastatic bladder cancer, prior R ocular stroke, more recent left frontal ischemic stroke (Jun 2021), right carotid stenosis, and depression. Mr. Piper was recently admitted to [facility] in Jun 2021 with waxing and waning expressive aphasia and dysarthria secondary to left frontal ischemic stroke. He was also found to have a right parietal metastatic lesion. He was started on aspirin 81mg daily for secondary stroke prevention in addition to statin (DAPT not pursued due to metastatic lesion and concern for bleeding). Etiology remains unknown. He was discharged with 30 day heart monitor - results still pending. EEG was done during admission given waxing/waning symptoms and was normal. In regards to the metastatic lesion, he was switched by Dr. Wadsworth from [place] to enfortumab vedotin IV. He had updated brain MRI imaging on 08/10/21 which shows significant reduction in size of metastatic lesion (I reviewed these images personally). Met with rad-onc who did not recommend radiation given response to chemotherapy. Admitted today with right focal motor status epilepticus. I spoke with his . Upon awakening this am, noted weakness, but also uncontrolled movements of the right arm. This continued throughout breakfast and then seemed to worsen involving the right leg as well. EMS was called. Upon ER arrival, noted to have R>>L uncontrolled movements. He had no KIMBERLY. Treated with 2mg IV Ativan, followed by IV levetiracetam 1000mg which significantly diminished seizure activity. Subsequently given IV fosphenytoin 1500mg as well. Movements have since ceased, however, he is now somnolent. A CTH performed today shows no acute findings. Metastatic lesion remains diminished (I reviewed these images personally). EEG consistent with moderate encephalopathy. No seizure activity. He is no longer in status epilepticus. Consults Requesting physician: Gilberto Monae Review of Systems Unobtainable due to mental status [facility] Active Problem List Lymphedema of left lower extremity (Acute) B12 deficiency (Acute) Hypokalemia (Acute) POLST (Physician Orders for Life-Sustaining Treatment) (Acute) Sun-damaged skin (Acute) Former smoker, stopped smoking in distant past (Acute) Adverse drug effect (Chronic) Dental caries (Acute) Expressive aphasia (Acute) Goals of care, counseling/discussion (Acute) Palliative care patient (Acute) Carotid stenosis, right (Acute) DVT prophylaxis (Acute) Discharge planning issues (Acute) Acute embolic stroke (Acute) Brain mass (Chronic) Malignant neoplasm metastatic from bladder (Acute) Acute UTI (Acute) Aphasia (Acute) TIA (transient ischemic attack) (Acute) Constipation (Acute) History of bladder cancer (Acute) Maintenance chemotherapy (Acute) 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 Family History Daughter No problems noted. Other Diabetes Heart disease Lupus Social History Smoking/Tobacco Use Status: Former Tobacco Use Quit Date: 10/01/88 Tobacco: How many years used: 30 Counseling given: other Details: discussed link between smoking and bladder cancer Smoking risk assessment performed?: Yes Alcohol Intake: current Alcohol Intake frequency: 0-2 drinks per day Alcohol type: wine and hard liquor Counseling given: No Drug use: Never Substance use type: does not use Details: tried Hemp oil, Pt states wasn't helpful. 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 [employer] Do you think of yourself as: straight/heterosexual Current gender identity: male What is your relationship status?: How often do you talk on the phone with friends or family?: three or more times per week How often do you get together with friends or relatives?: once per week Panel score (0-1 are the most socially isolated patients): 2 What type of physical activity do you participate in: walking and occasional exercise Duration: 15-30 minutes/day Frequency: 3-4 times per week Special claire needs: No Seatbelt use: always Working smoke detector in home: Yes Fire extinguisher in home: Yes Do you feel safe at home: Yes Do you feel safe in your relationship?: Yes Additional Social history: to Marika, his second , for more than 40 years. Has one daughter from first marriage, Radha, who lives in [place], [place] with her 2 kids. Close to his stepson, Nelson, who lives in [place], [place]. Aileen lived a sailing life until he came down with cancer. He retired at age 72 and they lived in a sailing community in [place]. They are officially [facility] residents, but they have a second home in [place], [place]. Amy tells me that [facility] in [place] wouldn't handle my care any longer. He doesn't understand why. He is getting new treatment with Dr Patten and tolerating it. He was not surprised to hear about likely cancer mets to his brain. He reports that ever since he was diagnosed with bladder cancer, he has felt pretty lousy. Visit Medication and Allergies Active Medications Generic Name Dose Route Start Last Admin Trade Name Freq PRN Reason Stop Dose Admin Acetaminophen 0 mg 08/18/21 13:11 Acetaminophen 325 Mg Tab PO Q4H PRN PRN Al Hydrox/Mg Hydrox/Simethicone 30 ml 08/18/21 13:11 Mylanta Suspension 30 Ml Cup PO Q2H PRN PRN Aspirin 81 mg 08/19/21 08:30 Aspirin E.C. 81 Mg Tabec PO DAILY [facility] Atenolol 25 mg 08/19/21 08:30 Atenolol 25 Mg Tab PO DAILY [facility] Atorvastatin Calcium 40 mg 08/19/21 08:30 Atorvastatin 40 Mg Tab PO DAILY [facility] Cyanocobalamin 1,000 mcg 08/19/21 08:30 Cyanocobalamin 500 Mcg Tab PO DAILY [facility] Dimethicone/Zinc Oxide 0 gm 08/18/21 13:11 Narcisa Protect Cream 142 Gm Tube TP PRN PRN Docusate Sodium 100 mg 08/18/21 13:11 Docusate Sodium 100 Mg Cap PO TID PRN PRN Docusate Sodium 100 mg 08/19/21 08:30 Docusate Sodium 100 Mg Cap PO DAILY [facility] Enoxaparin Sodium 40 mg 08/18/21 14:00 Enoxaparin 40 Mg/0.4 Ml Syr SC Q24H [facility] Gabapentin 100 mg 08/18/21 14:00 08/18/21 15:56 Gabapentin 100 Mg Cap PO Not Given TID CHRISTINE Gadoterate Meglumine 16 ml 08/18/21 13:45 08/18/21 13:32 Gadoterate Meglumine 20 Ml Vial IVP 09/17/21 23:59 16 ml DIRECTED CHRISTINE Administration Sodium Chloride 500 mls @ 0 mls/hr 08/18/21 09:58 Saline 500ml Bag IV PRN PRN As Directed Ringer's Solution 1,000 mls @ 1,000 mls/hr 08/18/21 13:15 IV INFUSION CHRISTINE Levetiracetam 1,000 mg/ Sodium 110 mls @ 400 mls/hr 08/18/21 22:00 Chloride IVPB Q12H CHRISTINE Norepinephrine Bitartrate 8 mg in 250 mls @ 21.687 mls/hr 08/18/21 15:15 08/18/21 14:54 IV 0.15 mcg/kg/min INFUSION CHRISTINE 21.687 mls/hr Administration Protocol 0.15 MCG/KG/MIN Vancomycin/PEG/NADA/Lysine/Water 1.5 gm in 300 mls @ 200 mls/hr 08/18/21 15:45 Vancocin Injection IV 08/18/21 17:14 NOW ONE Protocol Piperacillin Sod/Tazobactam 100 mls @ 25 mls/hr 08/18/21 16:00 08/18/21 16:45 Sod 4.5 gm/ Sodium Chloride IVPB 200 mls/hr Q8H CHRISTINE Administration Protocol Vancomycin/PEG/NADA/Lysine/Water 1 gm in 200 mls @ 133.333 mls/hr 08/19/21 06:00 Vancocin Injection IV Q14H [facility] Protocol IV Miscellaneous Supplies 1 each 08/18/21 10:00 Iv Access IV DIRECTED [facility] Lorazepam 1 mg 08/18/21 13:15 Lorazepam 2 Mg/Ml Vial IVP .Q15M PRN PRN Magnesium Hydroxide 30 ml 08/18/21 13:11 Milk Of Magnesia 30 Ml Cup PO DAILY PRN PRN Polyethylene Glycol 17 gm 08/18/21 13:11 Polyethylene Glycol 3350 17 Gm Packet PO DAILY PRN PRN Constipation Sertraline HCl 50 mg 08/19/21 08:30 Sertraline 50 Mg Tab PO DAILY [facility] Sodium Chloride 0 ml 08/18/21 09:58 Normal Saline Flush 10 Ml Syr IVP PRN PRN Sodium Chloride 10 ml 08/18/21 13:31 08/18/21 14:00 Normal Saline Flush 10 Ml Syr IVP 60 ml PRN PRN Administration Allergies lisinopril Adverse Reaction (Verified 08/18/21 10:26) pt reports elevated potassium Exam Narrative Exam Narrative: Physical Exam: Constitutional: Patient of apparent stated age, somnolent; GCS 8 Neck: Supple, no meningismus CV: RRR, S1, S2, no murmur Resp: CTAB Abd: Soft, nontender, nondistended Neuro: MS/Language/Speech: somnolent; GCS 8; does not follow commands CN: PERRL, doll's eye intact; face symmetric; grimaces to noxious stimuli Sensory/Motor: Normal bulk and tone. Withdrawals in all extremities to noxious stimuli. Semi-rhythmic movements of the legs - drawing them up and down. Reflexes: hyporeflexic throughout, +Babinski bilaterally Coordination: no ataxia Gait: unable to test Results Last Vital Signs Temp 97.9 F 08/18/21 12:27 Pulse 60 08/18/21 16:46 Resp 15 08/18/21 16:46 BP 107/52 L 08/18/21 16:46 Pulse Ox 95 08/18/21 16:46 Labs Result diagrams: 08/18/21 10:13 08/18/21 10:13 Labs: Laboratory Results - last 24 hr 08/18/21 08/18/21 08/18/21 10:13 10:13 10:40 WBC 12.10 H RBC 3.62 L Hgb 11.4 L Hct 34.7 L MCV 95.9 H MCH 31.5 MCHC 32.9 RDW 16.5 H Plt Count 269 MPV 9.0 Immature Gran % 0.3 Neutrophils % 51.2 Lymphocytes % 36.4 Monocytes % 9.3 Eosinophils % 1.9 Basophils % 0.9 Nucleated RBC % 0 Absolute Neutrophils 6.20 Absolute Lymphocytes 4.40 H Absolute Monocytes 1.13 H Absolute Eosinophils 0.23 Absolute Basophils 0.11 VBG Lactate Sodium 141 Potassium 5.1 Chloride 103 Carbon Dioxide 17.6 L Anion Gap 20.4 H BUN 20 H Creatinine 1.3 Estimated GFR/1.73 m2 53.39 Glucose 147 H Calcium 9.0 Magnesium 1.5 L Total Bilirubin 0.7 AST 28 ALT 28 Alkaline Phosphatase 101 Troponin I < 0.05 Total Protein 7.6 Albumin 3.3 L Urine Color Urine Clarity Urine pH Ur Specific [place] Urine Protein Urine Ketones Urine Blood Urine Nitrite Urine Bilirubin Urine Urobilinogen Ur Leukocyte Esterase Urine RBC Urine WBC Ur Epithelial Cells Urine Crystals Urine Bacteria Urine Casts Urine Mucus Ur Culture Indicated? Urine Glucose COVID-19 Source Nasal/Nares 08/18/21 08/18/21 11:05 15:48 WBC RBC Hgb Hct MCV MCH MCHC RDW Plt Count MPV Immature Gran % Neutrophils % Lymphocytes % Monocytes % Eosinophils % Basophils % Nucleated RBC % Absolute Neutrophils Absolute Lymphocytes Absolute Monocytes Absolute Eosinophils Absolute Basophils VBG Lactate 1.8 H Sodium Potassium Chloride Carbon Dioxide Anion Gap BUN Creatinine Estimated GFR/1.73 m2 Glucose Calcium Magnesium Total Bilirubin AST ALT Alkaline Phosphatase Troponin I Total Protein Albumin Urine Color Yellow Urine Clarity Clear Urine pH 6.0 Ur Specific [place] 1.025 Urine Protein Trace H Urine Ketones Negative Urine Blood Negative Urine Nitrite Negative Urine Bilirubin Negative Urine Urobilinogen 0.2 Ur Leukocyte Esterase Trace H Urine RBC Negative Urine WBC 10-20 H Ur Epithelial Cells Rare Urine Crystals Negative Urine Bacteria Rare Urine Casts 3-5 Hyaline Urine Mucus Negative Ur Culture Indicated? Yes Urine Glucose Negative COVID-19 Source
--- NOTE | 2021-08-18 17:06 | PDOC.EEG ---
Neurology EEG EEG: [facility] Department of Neurology EEG REPORT Date of Recordin08/18/21 Interpreting Physician: Dr. Ann Marie Salomon PCP/Referring Provider: Dr. Monae Reason for study: Mr. Piper is a 80 year-old man with metastatic bladder cancer and recent stroke who presented with R>>>L focal motor seizure activity. S/p Ativan, Keppra, and fosphenytoin. Current Medications: Current Medications Acetaminophen (Acetaminophen 325 Mg Tab) 0 mg PO Q4H PRN PRN Al Hydrox/Mg Hydrox/Simethicone (Mylanta Suspension 30 Ml Cup) 30 ml PO Q2H PRN PRN Aspirin (Aspirin E.C. 81 Mg Tabec) 81 mg PO DAILY CHRISTINE Atenolol (Atenolol 25 Mg Tab) 25 mg PO DAILY [facility]RISTINE Atorvastatin Calcium (Atorvastatin 40 Mg Tab) 40 mg PO DAILY [facility]RISTINE Cyanocobalamin (Cyanocobalamin 500 Mcg Tab) 1,000 mcg PO DAILY [facility]RISTINE Dimethicone/Zinc Oxide (Narcisa Protect Cream 142 Gm Tube) 0 gm TP PRN PRN Docusate Sodium (Docusate Sodium 100 Mg Cap) 100 mg PO TID PRN PRN Docusate Sodium (Docusate Sodium 100 Mg Cap) 100 mg PO DAILY [facility]RISTINE Enoxaparin Sodium (Enoxaparin 40 Mg/0.4 Ml Syr) 40 mg SC Q24H CHRISTINE Gabapentin (Gabapentin 100 Mg Cap) 100 mg PO TID [facility] Last Admin: 08/18/21 15:56 Dose: Not Given Documented by: Gadoterate Meglumine (Gadoterate Meglumine 20 Ml Vial) 16 ml IVP DIRECTED [facility] Stop: 09/17/21 23:59 Last Admin: 08/18/21 13:32 Dose: 16 ml Documented by: Sodium Chloride (Saline 500ml Bag) 500 mls @ 0 mls/hr IV PRN PRN Ringer's Solution () 1,000 mls @ 1,000 mls/hr IV INFUSION [facility] Last Admin: 08/18/21 14:00 Dose: 1,000 mls/hr Documented by: Levetiracetam 1,000 mg/ Sodium (Chloride) 110 mls @ 400 mls/hr IVPB Q12H CHRISTINE Norepinephrine Bitartrate () 8 mg in 250 mls @ 21.687 mls/hr IV INFUSION [facility]; Protocol Last Admin: 08/18/21 14:54 Dose: 0.15 mcg/kg/min, 21.687 mls/hr Documented by: Vancomycin/PEG/NADA/Lysine/Water (Vancocin Injection) 1.5 gm in 300 mls @ 200 mls/hr IV NOW ONE; Protocol Stop: 08/18/21 17:14 Piperacillin Sod/Tazobactam (Sod 4.5 gm/ Sodium Chloride) 100 mls @ 25 mls/hr IVPB Q8H CHRISTINE; Protocol Last Admin: 08/18/21 16:45 Dose: 200 mls/hr Documented by: Vancomycin/PEG/NADA/Lysine/Water (Vancocin Injection) 1 gm in 200 mls @ 133.333 mls/hr IV Q14H CHRISTINE; Protocol IV Miscellaneous Supplies (Iv Access) 1 each IV DIRECTED CHRISTINE Lorazepam (Lorazepam 2 Mg/Ml Vial) 1 mg IVP .Q15M PRN PRN Magnesium Hydroxide (Milk Of Magnesia 30 Ml Cup) 30 ml PO DAILY PRN PRN Polyethylene Glycol (Polyethylene Glycol 3350 17 Gm Packet) 17 gm PO DAILY PRN PRN PRN Reason: Constipation Sertraline HCl (Sertraline 50 Mg Tab) 50 mg PO DAILY CHRISTINE Sodium Chloride (Normal Saline Flush 10 Ml Syr) 0 ml IVP PRN PRN Sodium Chloride (Normal Saline Flush 10 Ml Syr) 10 ml IVP PRN PRN Last Admin: 08/18/21 14:00 Dose: 60 ml Documented by: METHODS: A 21 channel digitized electroencephalogram was performed in the [facility]phys[facility]. The 10/20 international system of electrode placement was used and bipolar and referential electrode montages were recorded. In addition to EEG the patient was monitored for EKG and lateral/vertical eye movements. Activation procedures of photic stimulation and hyperventilation were performed if applicable. Video was used during activation procedures and during events where applicable. The duration of the recording was 30 minutes. DESCRIPTION OF EEG: The patient was noted to be comatose throughout the recording. There was no discernible background rhythm. The recording was manifested by generalized, low-amplitude, polyrhythmic delta throughout. There was some increased activity with stimulation. No epileptiform activity seen. Activating Procedures: Photic stimulation was performed which produced no posterior driving response. Hyperventilation was not performed. EKG: EKG revealed normal sinus rhythm. INTERPRETATION: This EEG is abnormal due to moderate generalized, low-amplitude, polymorphic delta slowing throughout. PRIOR EEG: none CLINICAL CORRELATION: The background slowing is suggestive of a moderate diffuse cerebral encephalopathy of broad differential including toxic-metabolic etiology. No focal regions of cerebral dysfunction or epileptiform activity was present. Clinical correlation is advised. Ann Marie Salomon MD
--- NOTE | 2021-08-18 17:12 | HPE_ITS ---
Date of service: 08/18/21 Time of Service: 17:13 Assessment and Plan Assessment and plan (1) Sepsis: Status: Suspected Assessment and plan: Patient was admitted to the intensive care unit with refractory hypotension. Patient required 2-1/2 L of LR in the edition of norepinephrine. Norepinephrine drip was titrated up to 0.2 mcg/kg/min and is now being weaned down now that his blood pressure stabilized. Unclear etiology suspect possible aspiration pneumonitis from his seizure. Urinalysis demonst rated rare bacteria but pyuria has been sent for culture. He has bilateral maxillary sinusitis but this should not cause sepsis. We will continue broad- spectrum antibiotics pending the results of his blood cultures. He is currently on Zosyn and vancomycin. He also received Unasyn in the emergency department. We will also cover with stress dose corticosteroids in the event that this may be adrenal insufficiency and not sepsis. Critical care time spent with the patient outside of placement of his CVP line was 90 minutes. Qualifiers: Sepsis type: sepsis due to unspecified organism Sepsis acute organ dysfunction status: without acute organ dysfunction Qualified Code(s): A41.9 - Sepsis, unspecified organism (2) Hypotension: Status: Acute Assessment and plan: Differential diagnosis includes sepsis versus adrenal insufficiency versus hypovolemia versus secondary to his seizure and medications given to treat his seizure which included loading dose of fosphenytoin. Presently patient is stabilized after 2-1/2 L of IV fluids and the addition of norepinephrine. Patient will be treated with stress dose corticosteroids along with IV antibiotics. Qualifiers: Hypotension type: unspecified hypotension type Qualified Code(s): I95.9 - Hypotension, unspecified (3) Status epilepticus: Status: Acute Assessment and plan: Continue Keppra 1 g IV every 12 hours. Will consult with neurology. EEG was ordered and reading is pending at this time.MRI is performed and shows left parietal enhancing lesion that reportedly is about a millimeter larger than previous study from 08/10/2021. No evidence of acute intracranial hemorrhage or infarct. (4) Focal motor epilepsy: Status: Acute Assessment and plan: As above (5) Brain mass: Status: Chronic Assessment and plan: No evidence of cerebral edema or cerebral hemorrhage on his CT scan or MRI scan. Upon discharge follow-up with his oncologist to arrange radiation treatment (6) History of bladder cancer: Status: Acute Assessment and plan: Reportedly with metastatic disease in his pelvis and now with a brain mets. (7) Bacteriuria with pyuria: Status: Acute Assessment and plan: Rule out UTI. Urine culture has been sent patient is on broad-spectrum antibiotics pending the results of blood and urine cultures. (8) Palliative care patient: Status: Acute Assessment and plan: Palliative care consult obtained with Dr. Marika salmon who discussed the patient's condition with his at the present time patient will remain a full code per the 's choice based on her understanding of her 's wishes. (9) Carotid stenosis, right: Status: Acute Assessment and plan: Patient has history of embolic stroke and High-grade stenosis of his proximal right internal carotid artery representing 90% stenosis. He has milder stenosis at the origin of the left internal carotid artery. No high-grade stenosis in the intracerebral vessels. Continue aspirin 81 mg daily along with atorvastatin 40 mg daily (10) DVT prophylaxis: Status: Acute Assessment and plan: Lovenox 40 mg subcutaneously daily History of Present Illness History of Present Illness Chief Complaint: paraparesis, seizure Narrative: 80-year-old right-handed male with a history of metastatic bladder cancer status post radical cystectomy with ileal conduit, history of prior CVA, hypertension, hyperlipidemia who was admitted to [facility] 06/22/2021 through 06/24/2021 with symptoms of expressive aphasia dysarthria. CT of his head without contrast demonstrated area in the left parietal lobe interpreted as calcification versus small area of hemorrhage and subsequent MRI was performed and showed a 10 x 11 mm solitary ring-enhancing lesion in the left parietal lobe consistent with a neoplasm without surrounding edema and was also found to have an embolic CVA in the high left frontal lobe. CT of the head neck revealed high-grade stenosis of proximal right internal carotid artery as well as an occluded external right carotid artery. Patient was initiated on aspirin 81 mg daily per neurology recommendation EEG was performed an echocardiogram was performed. He was referred for follow-up with neurology and referred for follow-up with his oncologist Dr. Wadsworth. Patient has been receiving chemotherapy and was being evaluated for radiation treatment of his brain metastasis. He was brought in by EMS today after acute onset of right arm and hand paraparesis and right sided tremors however on arrival to the emergency department he had what was reported as full body tonic-clonic seizure activity with the right side worse than the left. He was also noted to have weakness in his right upper extremity. He was given Ativan 2 mg IV and bolused with Keppra 1 g. And subsequently was given a loading dose of fosphenytoin. Because of concern for seizure being secondary to brain lesion such as an acute hemorrhage CT scan of the head was performed which showed a small lesion in the high left parietal lobe that appear to be smaller than on the previous CT study of 06/22/2021. He was also noted to have acute sinusitis with fluid levels in both maxillary sinuses. Dr. Darrel Covarrubias emergency room attending called [facility] transfer center request transfer given his history of metastatic disease and new onset seizure related to his brain lesion. [facility] was at capacity and refused transfer. Dr. Covarrubias gave the patient Unasyn 3 g IV for his sinusitis. While the patient initially presented as hypertensive and tachycardic he subsequently developed hypotension emergency department but responded to 500 mL of LR. An MRI of the brain with and without an EEG was ordered per Dr. Salomon's recommendation. Upon arrival to the intensive care unit patient was noted to be hypotensive with systolic blood pressures in the high 70s and low 80s and diastolic pressures in the 40s. Patient was given another 2 L of LR and norepinephrine drip was started at a rate of 0.15 mcg/kg/min which got his systolic blood pressure up into the 110s. Blood and urine cultures were obtained and the patient was started on vancomycin and Zosyn for possible sepsis. Is unclear whether the patient may have aspirated or not with his seizure and also his urinalysis was suspicious for UTI. No chest x-ray was obtained emergency department but was subsequently obtained after placement of a central venous catheter. Review of Systems Unobtainable due to mental status [facility] Active Problem List Focal motor epilepsy (Acute) Status epilepticus (Acute) Lymphedema of left lower extremity (Acute) B12 deficiency (Acute) Hypokalemia (Acute) POLST (Physician Orders for Life-Sustaining Treatment) (Acute) Sun-damaged skin (Acute) Former smoker, stopped smoking in distant past (Acute) Adverse drug effect (Chronic) Dental caries (Acute) Expressive aphasia (Acute) Goals of care, counseling/discussion (Acute) Palliative care patient (Acute) Carotid stenosis, right (Acute) DVT prophylaxis (Acute) Discharge planning issues (Acute) Acute embolic stroke (Acute) Brain mass (Chronic) Malignant neoplasm metastatic from bladder (Acute) Acute UTI (Acute) Aphasia (Acute) TIA (transient ischemic attack) (Acute) Constipation (Acute) History of bladder cancer (Acute) Maintenance chemotherapy (Acute) 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 Family History Daughter No problems noted. Other Diabetes Heart disease Lupus Social History Smoking/Tobacco Use Status: Former Tobacco Use Quit Date: 10/01/88 Tobacco: How many years used: 30 Counseling given: other Details: discussed link between smoking and bladder cancer Smoking risk assessment performed?: Yes Alcohol Intake: current Alcohol Intake frequency: 0-2 drinks per day Alcohol type: wine and hard liquor Counseling given: No Drug use: Never Substance use type: does not use Details: tried Hemp oil, Pt states wasn't helpful. 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 [employer] Do you think of yourself as: straight/heterosexual Current gender identity: male What is your relationship status?: How often do you talk on the phone with friends or family?: three or more times per week How often do you get together with friends or relatives?: once per week Panel score (0-1 are the most socially isolated patients): 2 What type of physical activity do you participate in: walking and occasional exercise Duration: 15-30 minutes/day Frequency: 3-4 times per week Special claire needs: No Seatbelt use: always Working smoke detector in home: Yes Fire extinguisher in home: Yes Do you feel safe at home: Yes Do you feel safe in your relationship?: Yes Additional Social history: to Marika, his second , for more than 40 years. Has one daughter from first marriage, Radha, who lives in [place], [place] with her 2 kids. Close to his stepson, Nelson, who lives in [place], [place]. Aileen lived a sailing life until he came down with cancer. He retired at age 72 and they lived in a sailing community in [place]. They are officially [facility] res idents, but they have a second home in [place], [place]. Amy tells me that [facility] in [place] wouldn't handle my care any longer. He doesn't understand why. He is getting new treatment with Dr Patten and tolerating it. He was not surprised to hear about likely cancer mets to his brain. He reports that ever since he was diagnosed with bladder cancer, he has felt pretty lousy. Meds Allergies and Home Medications Allergies Allergy/AdvReac Type Severity Reaction Status Date / Time lisinopril AdvReac pt reports Verified 08/18/21 10:26 elevated potassium Home Medications Medication Instructions Recorded Confirmed Type atenolol 25 mg PO DAILY tab-cap 03/10/16 08/18/21 History atorvastatin 40 mg PO DAILY tab-cap 03/10/16 08/18/21 History sertraline 50 mg PO DAILY tab-cap 04/13/16 08/18/21 History gabapentin 100 mg PO TID 06/19/21 08/18/21 History magnesium citrate 150 ml PO BID PRN #300 ml 06/19/21 08/18/21 Rx prochlorperazine maleate 10 mg PO Q6H PRN PRN 06/19/21 07/07/21 History aspirin 81 mg PO DAILY #0 tab 06/24/21 08/18/21 Rx cyanocobalamin (vitamin B-12) 1,000 mcg PO DAILY #30 cap 06/24/21 08/18/21 Rx docusate sodium 100 mg capsule 100 mg PO DAILY 07/07/21 08/18/21 History Exam Narrative Exam Narrative: Elderly male who is initially obtunded and unarousable even to sternal rub but after some time being on the norepinephrine drip became more alert and responsive and actually verbalizing. He is oriented to person and also knew the month and the year according to nursing. For me he only seems to be oriented to person. He is somewhat somnolent and at times will have apneic spells. HEENT is remarkable for left eye droop. Pupils are equally round and reactive sclerae anicteric. Oropharynx is dry no exudate Neck veins are flat normal carotid pulses no adenopathy Lungs are clear but diminished at the bases no rhonchi or wheezing Heart is regular with a soft systolic murmur over the apex no thrill or heave or gallop Abdomen is scaphoid with normal active bowel sounds no bruits no masses no organomegaly he has an ileostomy in the right lower abdomen. Extremities without peripheral cyanosis or edema. He has diminished pedal pulses bilaterally. Neuro exam is nonfocal there is no facial asymmetry no dysarthric speech sensory exam grossly intact to light touch over the face arms and legs. He does have a right foot drop. Otherwise he can raise both legs off the bed and hold them up against light resistance. He has good handgrip strength on both sides and has good movement of his arms. Results Labs Result diagrams: 08/18/21 10:13 08/18/21 10:13 Labs: Laboratory Results - last 24 hr 08/18/21 08/18/21 08/18/21 10:13 10:13 10:40 WBC 12.10 H RBC 3.62 L Hgb 11.4 L Hct 34.7 L MCV 95.9 H MCH 31.5 MCHC 32.9 RDW 16.5 H Plt Count 269 MPV 9.0 Immature Gran % 0.3 Neutrophils % 51.2 Lymphocytes % 36.4 Monocytes % 9.3 Eosinophils % 1.9 Basophils % 0.9 Nucleated RBC % 0 Absolute Neutrophils 6.20 Absolute Lymphocytes 4.40 H Absolute Monocytes 1.13 H Absolute Eosinophils 0.23 Absolute Basophils 0.11 VBG Lactate Sodium 141 Potassium 5.1 Chloride 103 Carbon Dioxide 17.6 L Anion Gap 20.4 H BUN 20 H Creatinine 1.3 Estimated GFR/1.73 m2 53.39 Glucose 147 H Calcium 9.0 Magnesium 1.5 L Total Bilirubin 0.7 AST 28 ALT 28 Alkaline Phosphatase 101 Troponin I < 0.05 Total Protein 7.6 Albumin 3.3 L Urine Color Urine Clarity Urine pH Ur Specific Mcdowell Urine Protein Urine Ketones Urine Blood Urine Nitrite Urine Bilirubin Urine Urobilinogen Ur Leukocyte Esterase Urine RBC Urine WBC Ur Epithelial Cells Urine Crystals Urine Bacteria Urine Casts Urine Mucus Ur Culture Indicated? Urine Glucose COVID-19 Source Nasal/Nares 08/18/21 08/18/21 11:05 15:48 WBC RBC Hgb Hct MCV MCH MCHC RDW Plt Count MPV Immature Gran % Neutrophils % Lymphocytes % Monocytes % Eosinophils % Basophils % Nucleated RBC % Absolute Neutrophils Absolute Lymphocytes Absolute Monocytes Absolute Eosinophils Absolute Basophils VBG Lactate 1.8 H Sodium Potassium Chloride Carbon Dioxide Anion Gap BUN Creatinine Estimated GFR/1.73 m2 Glucose Calcium Magnesium Total Bilirubin AST ALT Alkaline Phosphatase Troponin I Total Protein Albumin Urine Color Yellow Urine Clarity Clear Urine pH 6.0 Ur Specific Mcdowell 1.025 Urine Protein Trace H Urine Ketones Negative Urine Blood Negative Urine Nitrite Negative Urine Bilirubin Negative Urine Urobilinogen 0.2 Ur Leukocyte Esterase Trace H Urine RBC Negative Urine WBC 10-20 H Ur Epithelial Cells Rare Urine Crystals Negative Urine Bacteria Rare Urine Casts 3-5 Hyaline Urine Mucus Negative Ur Culture Indicated? Yes Urine Glucose Negative COVID-19 Source Last Vital Signs Temp 36.6 C 08/18/21 12:27 Pulse 60 08/18/21 16:46 Resp 15 08/18/21 16:46 BP 107/52 L 08/18/21 16:46 Pulse Ox 95 08/18/21 16:46 PAWSS Have you Been Recently Intoxicated or Drunk Within the Last 30 days?: No Have you Ever Experienced Previous Episodes of Alcohol Withdrawal?: No Have you ever Experienced Withdrawal Seizures?: No Have you ever Experienced Delirium Tremens(DT)s?: No Have you ever undergone Alcohol Rehabilitation Treatment (i.e, inpt ot outpatient treatment programs)?: No Have you ever Experienced Blackouts?: No Have you ever Combined Alcohol with other Downers within the last 90 days?: No Have you ever Combined Alcohol with any other Substance of Abuse during the last 90 days?: No Positive Blood Alcohol level on Presentation? [PCS.BAL]: No Evidence of Increased Autonomic Activity (i.e. HR>120, tremor, sweating, agitation, nausea)?: No Result: 0
[2021-08-18] MEDS: Lactated Ringers 1,000 ML 100 ML IV (17:19)
[2021-08-18 17:48] LABS: Procalcitonin 0.1 ng/mL
--- NOTE | 2021-08-18 19:07 | DI.RAD_ITS ---
Exam(s) XR PORTABLE CHEST AP POST LINE EXAM: XR PORTABLE CHEST AP POST LINE CLINICAL HISTORY: CVP line placement TECHNIQUE: 2D digital imaging was performed. COMPARISON: CR,XR XR CHEST 2V PA LATERAL from 06/22/2021 FINDINGS: A right jugular catheter has been placed with the tip projecting in the superior vena cava. No pneum othorax. Leads overlie the chest. There are bilateral skin folds. No focal infiltrate or effusion is seen. The heart size is within normal limits for projection. There is tortuosity of the aorta wh ich also shows calcification. Degenerative changes are noted in the shoulders and spine. IMPRESSION: Satisfactory position of central venous catheter. No pneumothorax. DATA REPOSITORY: RADIATION DOSE DELIVERED:
--- NOTE | 2021-08-18 19:12 | W.PM.OP ---
Date of service: 08/18/21 Time of Service: 19:13 Operative Note Operative Note DATE OF PROCEDURE: 08/18/21 PRE-OP DIAGNOSIS: Refractory hypotension, need for central line for vasopressor support POST-OP DIAGNOSIS: same PROCEDURE: Right internal jugular central venous catheter placement SURGEON: Gilberto Monae ANESTHESIA TYPE: Local By Surgeon 5 cc of 1% lidocaine ESTIMATED BLOOD LOSS: 5 (mL) PATHOLOGY: none sent COMPLICATIONS: None Patient was transported to: no change Patient's condition: stable Indications: Refractory hypotension requiring vasopressor support requiring central line Procedure Description: After obtaining written informed consent from the patient's having explained to her the indications and alternatives as well as potential complications including but not limited to inadvertent cannulation of the carotid, pneumothorax, bleeding, infection the patient's consented to placement of an internal jugular vein placed central venous catheter. Using an Arrow pressure injectable Arrow Guard Blue +3 lumen CVC 7 [place] 3 lm 20 cm catheter kit. Patient was prepped and draped in the usual sterile fashion and an eye was donned with sterile gown and gloves and mask and hat I prepped the patient with the enclosed ChloraPrep solution after having identified the right internal jugular vein using the SonoSite PX translinear probe and having compressed the IJ vein to ensure that there was no thrombosis. After prepping the right IJ area over the sternal cleidomastoid muscle use the enclosed 5 mL 1% lidocaine solution and injected the area of interest infiltrating the skin and subcutaneous tissue. Then using the translinear probe in a sterile fashion having covered it with a sterile sheath I used the probe in a dynamic fashion to guide to insert an 18-gauge 2-1/2 inch radiopaque catheter over 20-gauge RW introducer needle and having withdrawn dark nonpulsatile blood catheter was advanced and the introducer needle was withdrawn. Then using the flexible J-tipped spring wire guide nitinol marked 0.032 inch (0.81 mm) diameter by 23-5/8 inch (60 cm) guidewire I advanced this guidewire through the catheter withdrew the catheter. Then using the enclosed #11 safety scalpel I made an incision in the skin over the entry point of the guidewire. Made 2 passes with the safety scalpel then proceeded to use the 8.5 B[place]an tissue dilator and after withdrawing the dilator using a Seldinger technique I passed the triple-lumen CVP catheter over the guidewire which had previously been filled with sterile saline. Each of the 3 ports were flushed with sterile saline after ensuring that there was good blood flow back. Catheter was advanced to 15 cm and then using the enclosed second site adjustable hub catheter clamped and hub fastener I sutured the triple-lumen in place to the skin. Then closed Biopatch was applied after cleaning up the skin with sterile saline. Then the closed sterile dressing was applied. Using the translinear ultrasound probe from the [employer] PX machine and check for lung sliding in the most anterior and superior position and found good lung sliding. Stat portable chest x-ray is pending at this time.
[2021-08-18] MEDS: Enoxaparin 40 MG/0.4 ML SYR SC (19:19)
[2021-08-18] MEDS: VANCOMYCIN/WATER (PEG) 1.5 GM/300 ML BAG IV (19:25)
[2021-08-18 19:37] LABS: Creatine Kinase 146 U/L (39-308)
[2021-08-18 20:05] LABS: COVID-19 PCR Negative (Negative)
--- NOTE | 2021-08-18 20:31 | DI.VRAD_ITS ---
PROCEDURE INFORMATION: Exam: XR Chest Exam date and time: 08/18/2021 7:11 PM Age: 80 years old Clinical indication: Device placement; Other: Cvp line placement TECHNIQUE: Imaging protocol: XR of the chest. Views: 1 view. Total images: 1 COMPARISON: CR XR CHEST 2V PA LATERAL 06/22/2021 4:07 PM FINDINGS: Lungs: Normal pulmonary expansion. Pulmonary vasculature grossly normal. No gross pulmonary infiltrates or edema pattern. Pleural spaces: No pleural effusion. No pneumothorax. There are 2 skin folds projecting over the peripheral right mid upper lung field, and a single skin fold projecting over the peripheral left upper lung field. Heart/Mediastinum: Heart size normal. No tracheal/mediastinal shift. Vasculature: Right jugular line placed with its tip in the proximal SVC distribution. The aorta demonstrates mild ectasia/tortuosity and moderate calcific atherosclerosis. Bones/joints: No acute osseous abnormalities are identified. Moderate osteoarthritic changes in the right glenohumeral joint partially visualized. IMPRESSION: Right jugular line placed with its tip in the proximal SVC distribution. No pneumothorax. Dictated and Authenticated by: Oliverio Salgado MD. Ordering:[facility] Dov Macias MD
[2021-08-18 21:23] LABS: HCT 32.2 % (40.0-50.0); HGB 10.6 g/dL (13.5-17.5)
[2021-08-18 21:24] LABS: Lactate 1.1 mmol/L (0.6-1.4)
[2021-08-18] MEDS: Gabapentin 100 MG CAP PO (21:35)
[2021-08-18 21:36] LABS: Anion Gap 6.6 mmol/L (3-11); BUN 18 mg/dL (7-18); C-Reactive Protein 1.15 mg/dL (0.0-0.3); CO2 29.4 mmol/L (21.0-32.0); Calcium 8.6 mg/dL (8.5-10.1); Chloride 106 mmol/L (98-107); Glucose 159 mg/dL (74-106); Potassium 3.7 mmol/L (3.5-5.1); Sodium 142 mmol/L (136-145)
[2021-08-18] MEDS: Hydrocortisone SOD SUC. 100 MG VIAL IVP (21:46)
[2021-08-18] MEDS: MAGNESIUM SULFATE 2 GM/50 ML BAG IVPB (21:50)
[2021-08-19] VITALS (117 sets, daily range): BP systolic 92–120; BP diastolic 45–66; PULSE 59–77; RESP 8–29; TEMP 35.9–36.6; O2SAT 80–100
[2021-08-19] MEDS: Hydrocortisone SOD SUC. 100 MG VIAL 50 MG IVP ×4 (00:56→17:37)
[2021-08-19] MEDS: PIPERACILLIN/TAZO 4.5 GM in Normal Saline 100 ML IVPB ×3 (00:57→16:42)
[2021-08-19] MEDS: Normal Saline Flush 10 ML SYR IVP ×4 (01:20→13:51)
[2021-08-19] MEDS: Lactated Ringers 1,000 ML 100 ML IV ×2 (02:08→13:01)
[2021-08-19] MEDS: VANCOMYCIN/WATER (PEG) 1 GM/200 ML BAG IV ×2 (06:07→20:30)
--- NOTE | 2021-08-19 06:40 | W.PALLCONSUL ---
Date of service: 08/18/21 Time of Service: 17:40 History of Present Illness History of Present Illness Chief Complaint: seizures, metastatic cancer Narrative: From H and P History of Present Illness Chief Complaint: paraparesis, seizure Narrative: 80-year-old right-handed male with a history of metastatic bladder cancer status post radical cystectomy with ileal conduit, history of prior CVA, hypertension, hyperlipidemia who was admitted to [facility] 06/22/2021 through 06/24/2021 with symptoms of expressive aphasia dysarthria. CT of his head without contrast demonstrated area in the left parietal lobe interpreted as calcification versus small area of hemorrhage and subsequent MRI was performed and showed a 10 x 11 mm solitary ring-enhancing lesion in the left parietal lobe consistent with a neoplasm without surrounding edema and was also found to have an embolic CVA in the high left frontal lobe. CT of the head neck revealed high-grade stenosis of proximal right internal carotid artery as well as an occluded external right carotid artery. Patient was initiated on aspirin 81 mg daily per neurology recommendation EEG was performed an echocardiogram was performed. He was referred for follow-up with neurology and referred for follow-up with his oncologist Dr. Wadsworth. Patient has been receiving chemotherapy and was being evaluated for radiation treatment of his brain metastasis. He was brought in by EMS today after acute onset of right arm and hand paraparesis and right sided tremors however on arrival to the emergency department he had what was reported as full body tonic-clonic seizure activity with the right side worse than the left. He was also noted to have weakness in his right upper extremity. He was given Ativan 2 mg IV and bolused with Keppra 1 g. And subsequently was given a loading dose of fosphenytoin. Because of concern for seizure being secondary to brain lesion such as an acute hemorrhage CT scan of the head was performed which showed a small lesion in the high left parietal lobe that appear to be smaller than on the previous CT study of 06/22/2021. He was also noted to have acute sinusitis with fluid levels in both maxillary sinuses. Dr. Darrel Covarrubias emergency room attending called [facility] transfer center request transfer given his history of metastatic disease and new onset seizure related to his brain lesion. [facility] was at capacity and refused transfer. Dr. Covarrubias gave the patient Unasyn 3 g IV for his sinusitis. While the patient initially presented as hypertensive and tachycardic he subsequently developed hypotension emergency department but responded to 500 mL of LR. An MRI of the brain with and without an EEG was ordered per Dr. Salomon's recommendation. Upon arrival to the intensive care unit patient was noted to be hypotensive with systolic blood pressures in the high 70s and low 80s and diastolic pressures in the 40s. Patient was given another 2 L of LR and norepinephrine drip was started at a rate of 0.15 mcg/kg/min which got his systolic blood pressure up into the 110s. Blood and urine cultures were obtained and the patient was started on vancomycin and Zosyn for possible sepsis. Is unclear whether the patient may have aspirated or not with his seizure and also his urinalysis was suspicious for UTI. No chest x-ray was obtained emergency department but was subsequently obtained after placement of a central venous catheter. Interim Hx: I was asked by Dr. Simmons to see Amy. Amy is sleeping. His is at the bedside. She was able to give me his history, and also stated that they had talked about advanced planning. Amy had spoken with Anika Deleon a palliative nurse practitioner as recently as a few weeks ago. At that time they had an extensive discussion regarding CODE STATUS. He wanted to remain a full code. His did not feel she should change his CODE STATUS at this time, but was very interested in having a talk about this when he was more awake. Assessment and Plan Assessment and plan (1) Sepsis: Status: Suspected Qualifiers: Sepsis type: sepsis due to unspecified organism Sepsis acute organ dysfunction status: without acute organ dysfunction Qualified Code(s): A41.9 - Sepsis, unspecified organism (2) Hypotension: Status: Acute Qualifiers: Hypotension type: unspecified hypotension type Qualified Code(s): I95.9 - Hypotension, unspecified (3) Bacteriuria with pyuria: Status: Acute (4) Focal motor epilepsy: Status: Acute (5) Expressive aphasia: Status: Acute (6) Malignant neoplasm metastatic from bladder: Status: Acute (7) Palliative care patient: Status: Acute Assessment and plan: Amy is very somnolent. He was not able to open his eyes but could respond to simple commands. Per his this was an improvement from when he was examined by Dr. Simmons. His and I did discuss that she may need to change his CODE STATUS or at least address his CODE STATUS overnight since he had very shallow breathing when I was there as well as periods of apnea. When I left him he was breathing normally but this may change. We will continue his full CODE STATUS, but Anika Bledsoemariama will be seeing him Sunday to discuss this again. Hopefully he will be able to be involved in the conversation. Of note his did say that if she was in a similar condition she would not want to be revived and would want to be a DNR, but did not want to speak for her at this point. Again I impressed upon her that she may need to make decisions like this overnight I did let Dr. Simmons know of my conversation, and also contacted Anika who will see him on Sunday Thank you very much for this consult Review of Systems Unobtainable due to mental condition [facility] Active Problem List Focal motor epilepsy (Acute) Status epilepticus (Acute) Lymphedema of left lower extremity (Acute) B12 deficiency (Acute) Hypokalemia (Acute) POLST (Physician Orders for Life-Sustaining Treatment) (Acute) Sun-damaged skin (Acute) Former smoker, stopped smoking in distant past (Acute) Adverse drug effect (Chronic) Dental caries (Acute) Expressive aphasia (Acute) Goals of care, counseling/discussion (Acute) Palliative care patient (Acute) Carotid stenosis, right (Acute) DVT prophylaxis (Acute) Discharge planning issues (Acute) Acute embolic stroke (Acute) Brain mass (Chronic) Malignant neoplasm metastatic from bladder (Acute) Acute UTI (Acute) Aphasia (Acute) TIA (transient ischemic attack) (Acute) Constipation (Acute) History of bladder cancer (Acute) Maintenance chemotherapy (Acute) 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 Family History Daughter No problems noted. Other Diabetes Heart disease Lupus Social History Smoking/Tobacco Use Status: Former Tobacco Use Quit Date: 10/01/88 Tobacco: How many years used: 30 Counseling given: other Details: discussed link between smoking and bladder cancer Smoking risk assessment performed?: Yes Alcohol Intake: current Alcohol Intake frequency: 0-2 drinks per day Alcohol type: wine and hard liquor Counseling given: No Drug use: Never Substance use type: does not use Details: tried Hemp oil, Pt states wasn't helpful. 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 [employer] Do you think of yourself as: straight/heterosexual Current gender identity: male What is your relationship status?: How often do you talk on the phone with friends or family?: three or more times per week How often do you get together with friends or relatives?: once per week Panel score (0-1 are the most socially isolated patients): 2 What type of physical activity do you participate in: walking and occasional exercise Duration: 15-30 minutes/day Frequency: 3-4 times per week Special claire needs: No Seatbelt use: always Working smoke detector in home: Yes Fire extinguisher in home: Yes Do you feel safe at home: Yes Do you feel safe in your relationship?: Yes Additional Social history: to Marika, his second , for more than 40 years. Has one daughter from first marriage, Radha, who lives in [place], [place] with her 2 kids. Close to his stepson, Nelson, who lives in [place], [place]. Aileen lived a sailing life until he came down with cancer. He retired at age 72 and they lived in a [employer] community in [place]. They are officially [facility] residents, but they have a second home in [place], [place]. Amy tells me that [facility] in [place] wouldn't handle my care any longer. He doesn't understand why. He is getting new treatment with Dr Patten and tolerating it. He was not surprised to hear about likely cancer mets to his brain. He reports that ever since he was diagnosed with bladder cancer, he has felt pretty lousy. Exam Narrative Exam Narrative: Patient is lying in bed. He had.'s of apnea while I was in the room with the monitor alarms going off. He had.'s of shallow breathing. He was able to respond to my kick command to squeeze my hands and also to push on his feet. He was able to respond with all 4 extremities. He never opened his eyes. His forehead was furrowed. His breathing was shallow Const General: frail appearing and ill appearing Orientation: obtunded Limitations: altered mental status Resp Effort & Inspection: abnormal respiratory pattern (apnea at times, shallow) Auscultation: diminished lung sounds Cardio Rate: regular rate GI Palpation: soft Skin General skin exam: pallor Neuro Cognition: abnormal cognition Motor: other (did respond to simple commands) Results Last Vital Signs Temp 97.3 F L 08/18/21 22:29 Pulse 59 L 08/19/21 06:01 Resp 9 L 08/19/21 06:01 BP 116/53 L 08/19/21 06:01 Pulse Ox 97 08/19/21 05:31 MRI 08/18/21 Patient Name: Danny Piper AUnit #: [id number]: ICU Ordering Provider: Darrel Covarrubias M.D. : ADM IN Primary Care Provider: Stephanie Menon of Exam: 08/18/21Sex: M Admission Date: 08/18/21 : 1940 Age: 80 Exam(s) MR BRAIN WO/W EXAM: MR BRAIN WO/W CLINICAL HISTORY: brain mass, new seizure activity TECHNIQUE: Multiplanar multisequence MRI of the brain was performed. Both noninfused and contrast infused sequences were performed. IV Contrast injected was cc Dotarem. COMPARISON: Prior brain MRI scan 08/10/2021. Prior CT scans, most recent being earlier today. FINDINGS: CEREBRAL PARENCHYMA: No evidence of intracranial hemorrhage, mass effect nor shift of midline structure. No extraaxial fluid collections. Ventricles are not enlarged nor shifted. Previously described white matter signal foci are basically unchanged. The Enhancing lesion in the left parietal lobe is again noted it appears perhaps 1 millimeter larger than the prior study of 08/10/2021. No prominent surrounding edema. There are no new additional ring enhancing lesions in the brain. There is no abnormal meningeal enhancement. DWI: No signal abnormality to suggest restricted diffusion. PITUITARY GLAND: No mass nor parasellar abnormality. No obvious abnormality in the cavernous sinuses. FLOW VOIDS: The expected flow void are noted. No evidence of obvious aneurysm nor obvious vascular malformation. PARANASAL SINUSES: Mucosal thickening and fluid levels in both maxillary sinuses, more so than previous, consistent with acute sinusitis. Also mucosal thickening in the ethmoid air cells bilaterally. Frontal sinuses are clear as are the sphenoid sinuses. ORBITS: No obvious abnormal findings. IMPRESSION: 1. The size of the left parietal enhancing lesion has minimally increased. There is no surrounding edema. 2. Other white matter findings are stable. 3. No evidence of acute intracranial hemorrhage or acute infarct. Labs Result diagrams: 08/18/21 21:08 08/18/21 21:08 Labs: Laboratory Results - last 24 hr 08/18/21 08/18/21 08/18/21 10:13 10:13 10:40 WBC 12.10 H RBC 3.62 L Hgb 11.4 L Hct 34.7 L MCV 95.9 H MCH 31.5 MCHC 32.9 RDW 16.5 H Plt Count 269 MPV 9.0 Immature Gran % 0.3 Neutrophils % 51.2 Lymphocytes % 36.4 Monocytes % 9.3 Eosinophils % 1.9 Basophils % 0.9 Nucleated RBC % 0 Absolute Neutrophils 6.20 Absolute Lymphocytes 4.40 H Absolute Monocytes 1.13 H Absolute Eosinophils 0.23 Absolute Basophils 0.11 VBG Lactate Sodium 141 Potassium 5.1 Chloride 103 Carbon Dioxide 17.6 L Anion Gap 20.4 H BUN 20 H Creatinine 1.3 Estimated GFR/1.73 m2 53.39 Glucose 147 H Calcium 9.0 Magnesium 1.5 L Total Bilirubin 0.7 AST 28 ALT 28 Alkaline Phosphatase 101 Creatine Kinase Troponin I < 0.05 C-Reactive Protein Total Protein 7.6 Albumin 3.3 L Procalcitonin Urine Color Urine Clarity Urine pH Ur Specific Lackey Urine Protein Urine Ketones Urine Blood Urine Nitrite Urine Bilirubin Urine Urobilinogen Ur Leukocyte Esterase Urine RBC Urine WBC Ur Epithelial Cells Urine Crystals Urine Bacteria Urine Casts Urine Mucus Ur Culture Indicated? Urine Glucose COVID-19 Source Nasal/Nares SARS-CoV-2 (PCR) Negative 08/18/21 08/18/21 08/18/21 11:05 15:48 15:48 WBC RBC Hgb Hct MCV MCH MCHC RDW Plt Count MPV Immature Gran % Neutrophils % Lymphocytes % Monocytes % Eosinophils % Basophils % Nucleated RBC % Absolute Neutrophils Absolute Lymphocytes Absolute Monocytes Absolute Eosinophils Absolute Basophils VBG Lactate 1.8 H Sodium Potassium Chloride Carbon Dioxide Anion Gap BUN Creatinine Estimated GFR/1.73 m2 Glucose Calcium Magnesium Total Bilirubin AST ALT Alkaline Phosphatase Creatine Kinase Troponin I C-Reactive Protein Total Protein Albumin Procalcitonin 0.1 Urine Color Yellow Urine Clarity Clear Urine pH 6.0 Ur Specific Lackey 1.025 Urine Protein Trace H Urine Ketones Negative Urine Blood Negative Urine Nitrite Negative Urine Bilirubin Negative Urine Urobilinogen 0.2 Ur Leukocyte Esterase Trace H Urine RBC Negative Urine WBC 10-20 H Ur Epithelial Cells Rare Urine Crystals Negative Urine Bacteria Rare Urine Casts 3-5 Hyaline Urine Mucus Negative Ur Culture Indicated? Yes Urine Glucose Negative COVID-19 Source SARS-CoV-2 (PCR) 08/18/21 08/18/21 08/18/21 15:48 21:08 21:08 WBC RBC Hgb Hct MCV MCH MCHC RDW Plt Count MPV Immature Gran % Neutrophils % Lymphocytes % Monocytes % Eosinophils % Basophils % Nucleated RBC % Absolute Neutrophils Absolute Lymphocytes Absolute Monocytes Absolute Eosinophils Absolute Basophils VBG Lactate 1.1 Sodium Potassium Chloride Carbon Dioxide Anion Gap BUN Creatinine Estimated GFR/1.73 m2 Glucose Calcium Magnesium Total Bilirubin AST ALT Alkaline Phosphatase Creatine Kinase 146 Troponin I C-Reactive Protein 1.15 H Total Protein Albumin Procalcitonin Urine Color Urine Clarity Urine pH Ur Specific Lackey Urine Protein Urine Ketones Urine Blood Urine Nitrite Urine Bilirubin Urine Urobilinogen Ur Leukocyte Esterase Urine RBC Urine WBC Ur Epithelial Cells Urine Crystals Urine Bacteria Urine Casts Urine Mucus Ur Culture Indicated? Urine Glucose COVID-19 Source SARS-CoV-2 (PCR) 08/18/21 08/18/21 21:08 21:08 WBC RBC Hgb 10.6 L Hct 32.2 L MCV MCH MCHC RDW Plt Count MPV Immature Gran % Neutrophils % Lymphocytes % Monocytes % Eosinophils % Basophils % Nucleated RBC % Absolute Neutrophils Absolute Lymphocytes Absolute Monocytes Absolute Eosinophils Absolute Basophils VBG Lactate Sodium 142 Potassium 3.7 D Chloride 106 Carbon Dioxide 29.4 Anion Gap 6.6 BUN 18 Creatinine 1.0 Estimated GFR/1.73 m2 >= 60.00 Glucose 159 H Calcium 8.6 Magnesium Total Bilirubin AST ALT Alkaline Phosphatase Creatine Kinase Troponin I C-Reactive Protein Total Protein Albumin Procalcitonin Urine Color Urine Clarity Urine pH Ur Specific Lackey Urine Protein Urine Ketones Urine Blood Urine Nitrite Urine Bilirubin Urine Urobilinogen Ur Leukocyte Esterase Urine RBC Urine WBC Ur Epithelial Cells Urine Crystals Urine Bacteria Urine Casts Urine Mucus Ur Culture Indicated? Urine Glucose COVID-19 Source SARS-CoV-2 (PCR)
[2021-08-19 07:13] LABS: Abs Immature Grans 0.02 10^3/uL (0.0-0.06); Absolute Basophil Count 0.03 10^3/uL (0.0-0.2); Absolute Lymphocyte Count 0.91 10^3/uL (1.2-3.4); Absolute Monocyte Count 0.21 10^3/uL (0.1-0.8); Absolute Neutrophil Count 4.54 10^3/uL (1.2-6.7); Basophils % 0.5; HCT 31.2 % (40.0-50.0); HGB 10.6 g/dL (13.5-17.5); Immature Grans % 0.4; Lymphocytes % 15.9; MCH 31.8 pg (27.0-33.0); MCV 93.7 fL (80-95); MPV 9.2 fL (8.0-11.0); Monocytes % 3.7; Neutrophils % 79.5; Nucleated RBC 0 %; Platelet Count 188 10^3/uL (130-400); RBC 3.33 10^6/uL (4.36-5.78); RDW 16.2 % (11.8-14.1); RDW-SD 55.7 fL; WBC 5.71 10^3/uL (4.4-10.8)
[2021-08-19 07:34] LABS: Magnesium 1.7 mg/dL (1.8-2.4)
[2021-08-19 07:49] LABS: ALT 23 U/L (16-63); AST 29 U/L (15-37); Albumin 2.7 g/dL (3.4-5.0); Alkaline Phosphatase 80 U/L (46-116); Anion Gap 6.8 mmol/L (3-11); BUN 14 mg/dL (7-18); Bilirubin, Total 0.7 mg/dL (0.2-1.0); CO2 30.2 mmol/L (21.0-32.0); CREATININE 0.9 mg/dL (0.70-1.30); Calcium 8.3 mg/dL (8.5-10.1); Chloride 104 mmol/L (98-107); Glucose 145 mg/dL (74-106); Potassium 3.6 mmol/L (3.5-5.1); Sodium 141 mmol/L (136-145); Total Protein 5.9 g/dL (6.4-8.2)
--- NOTE | 2021-08-19 08:18 | W.PULMCC ---
General Date of Service Date of service: 08/19/21 Time of Service: 07:40 Reason for Admission to ICU: Hypotension UTI Aspiration Assessment and Plan Assessment and plan (1) Septic shock: Status: Acute (2) Focal motor epilepsy: Status: Acute (3) Status epilepticus: Status: Acute (4) Hypokalemia: Status: Acute (5) Brain mass: Status: Chronic (6) Malignant neoplasm metastatic from bladder: Status: Acute (7) Acute UTI: Status: Acute (8) Hypomagnesemia: Status: Acute Assessment and plan: This is a 80 yo man with metastatic bladder cancer who is admitted to the ICU for septic shock, most likely from a UTI. He did have a seizure and has a brain mass that neurology is following for. His EEG did not show seizure activity but was more consistent with metabolic slowing. Clinically his picture is most consistent with septic shock (warm and well perfused with a high mixed venous sat). The hospitalist performed a bedside ultrasound and did not believe he saw hydronephrosis and the patient is improving from a hemodynamic standpoint. He is on very broad antibiotic coverage and the combination of vancomycin and Zosyn is well establish to cause more renal events then compared to alternative combinations. That being said he does not need the vancomycin. Aspiration pneumonitis can cause acute hypoxia and hypotension, but this typically resolves within hours and his CXR was normal. Recommendations Pulmonary: Hypoxic respiratory failure - work on weaning O2 needs - recommend stopping IVF's Cardiac: Hypotension - secondary to septic shock - it is possible there may be some adrenal insufficiency, however he has been started on stress dose steroid and so cannot test for this. - agree with Levophed to maintain MAP>65mmHg - stress dose steroids ok, but can likely discontinue once levophed weaned off Renal: Ileal conduit - closely monitor electrolytes and replete as necessary Hypomagnesemia - replete to 2.0 Hypokalemia - replete to 4.0 I&O: Intake & Output 08/16/21 08/17/21 08/18/21 08/19/21 23:59 23:59 23:59 23:59 Intake Total 2817.917 / 2817.917 1236.823 / 1236.823 Output Total 1525 / 1525 1350 / 1350 Balance 1292.917 / 1292.917 -113.177 / -113.177 Weight 79 kg 80.4 kg Daily Fluid Goal:: Again recommend stopping IVF with a goal of even GI Nutrition: OK for diet Infectious Disease: UTI - recommend discontinuing vancomycin - given prior E.coli growth and current GNR growth in urine, antibiotic stewardship to ceftriaxone is appropriate Aspiration - aspiration precautions Hematologic: Metastatic bladder cancer - no acute needs currently Neurologic: Seizure - receiving Keppra - brain MRI with likely met - EEG showing no seizure - management per neurology/ outpatient oncology Endocrine: Hyperglycemia - glucose goal 140-180 Lines: R IJ CVC Ileal conduit Prophylaxis: Lovenox, no need for GI ppx Code Status: Resuscitation Status Full Code Subjective Critical and life-threatening events over the past 24 hours: This is a 80 yo man with metastatic bladder cancer admitted to the ICU for hypotension. He received antibiotics for sinusitis, vanc and Zosyn for concerns of aspiration and UTI in addition to stress dose steroids. He had a central line placed for the need for vasopressors and has an ileal conduit. This morning he is feeling ok. The levophed was attempted to be weaned overnight, however he did not tolerate the drip being stopped. He is making good amounts of urine. He complains of right arm shaking. He is confused and does not seem to remember much. No shortness of breath or abdominal pain. Exam Const General: no acute distress Nutritional Appearance: well nourished [facility] Head: normocephalic Ears: external ears normal and no periauricular adenopathy General nose exam: nasal mucous membranes and turbinates normal Face and sinus: sinuses nontender Mouth: oropharynx normal and moist mucous membranes Teeth and gingiva: dentition normal Eyes General: appearance normal, both eyes and all related structures Pupils: PERRL Neck Neck: normal visual inspection and no lymphadenopathy Chest Chest: normal inspection of the chest Resp Effort & Inspection: normal respiratory effort Auscultation: clear to auscultation bilaterally, rales bilaterally at the base, no rhonchi and no wheezes Cardio Rate: regular rate Rhythm: regular rhythm Heart Sounds: S1 normal, S2 normal and no murmurs Pulses: radial pulses present bilaterally GI Inspection: normal to inspection Palpation: soft Skin General skin exam: no rashes or lesions noted Neuro General: patient alert, patient awake and patient oriented x3 Extrem General: no clubbing, cyanosis or edema Psych Mental Status: mental status grossly normal Affect: normal affect Attitude: cooperative Most Recent VS/Results Last Vital Signs Temp 36.6 C 08/19/21 06:00 Pulse 59 L 08/19/21 06:01 Resp 9 L 08/19/21 06:01 BP 116/53 L 08/19/21 06:01 Pulse Ox 97 08/19/21 05:31 Laboratory Results - last 24 hr 08/18/21 08/18/21 08/18/21 10:13 10:13 10:40 WBC 12.10 H RBC 3.62 L Hgb 11.4 L Hct 34.7 L MCV 95.9 H MCH 31.5 MCHC 32.9 RDW 16.5 H Plt Count 269 MPV 9.0 Immature Gran % 0.3 Neutrophils % 51.2 Lymphocytes % 36.4 Monocytes % 9.3 Eosinophils % 1.9 Basophils % 0.9 Nucleated RBC % 0 Absolute Neutrophils 6.20 Absolute Lymphocytes 4.40 H Absolute Monocytes 1.13 H Absolute Eosinophils 0.23 Absolute Basophils 0.11 VBG Lactate Sodium 141 Potassium 5.1 Chloride 103 Carbon Dioxide 17.6 L Anion Gap 20.4 H BUN 20 H Creatinine 1.3 Estimated GFR/1.73 m2 53.39 Glucose 147 H Calcium 9.0 Magnesium 1.5 L Total Bilirubin 0.7 AST 28 ALT 28 Alkaline Phosphatase 101 Creatine Kinase Troponin I < 0.05 C-Reactive Protein Total Protein 7.6 Albumin 3.3 L Procalcitonin Urine Color Urine Clarity Urine pH Ur Specific [place] Urine Protein Urine Ketones Urine Blood Urine Nitrite Urine Bilirubin Urine Urobilinogen Ur Leukocyte Esterase Urine RBC Urine WBC Ur Epithelial Cells Urine Crystals Urine Bacteria Urine Casts Urine Mucus Ur Culture Indicated? Urine Glucose COVID-19 Source Nasal/Nares SARS-CoV-2 (PCR) Negative 08/18/21 08/18/21 08/18/21 11:05 15:48 15:48 WBC RBC Hgb Hct MCV MCH MCHC RDW Plt Count MPV Immature Gran % Neutrophils % Lymphocytes % Monocytes % Eosinophils % Basophils % Nucleated RBC % Absolute Neutrophils Absolute Lymphocytes Absolute Monocytes Absolute Eosinophils Absolute Basophils VBG Lactate 1.8 H Sodium Potassium Chloride Carbon Dioxide Anion Gap BUN Creatinine Estimated GFR/1.73 m2 Glucose Calcium Magnesium Total Bilirubin AST ALT Alkaline Phosphatase Creatine Kinase Troponin I C-Reactive Protein Total Protein Albumin Procalcitonin 0.1 Urine Color Yellow Urine Clarity Clear Urine pH 6.0 Ur Specific [place] 1.025 Urine Protein Trace H Urine Ketones Negative Urine Blood Negative Urine Nitrite Negative Urine Bilirubin Negative Urine Urobilinogen 0.2 Ur Leukocyte Esterase Trace H Urine RBC Negative Urine WBC 10-20 H Ur Epithelial Cells Rare Urine Crystals Negative Urine Bacteria Rare Urine Casts 3-5 Hyaline Urine Mucus Negative Ur Culture Indicated? Yes Urine Glucose Negative COVID-19 Source SARS-CoV-2 (PCR) 08/18/21 08/18/21 08/18/21 15:48 21:08 21:08 WBC RBC Hgb Hct MCV MCH MCHC RDW Plt Count MPV Immature Gran % Neutrophils % Lymphocytes % Monocytes % Eosinophils % Basophils % Nucleated RBC % Absolute Neutrophils Absolute Lymphocytes Absolute Monocytes Absolute Eosinophils Absolute Basophils VBG Lactate 1.1 Sodium Potassium Chloride Carbon Dioxide Anion Gap BUN Creatinine Estimated GFR/1.73 m2 Glucose Calcium Magnesium Total Bilirubin AST ALT Alkaline Phosphatase Creatine Kinase 146 Troponin I C-Reactive Protein 1.15 H Total Protein Albumin Procalcitonin Urine Color Urine Clarity Urine pH Ur Specific [place] Urine Protein Urine Ketones Urine Blood Urine Nitrite Urine Bilirubin Urine Urobilinogen Ur Leukocyte Esterase Urine RBC Urine WBC Ur Epithelial Cells Urine Crystals Urine Bacteria Urine Casts Urine Mucus Ur Culture Indicated? Urine Glucose COVID-19 Source SARS-CoV-2 (PCR) 08/18/21 08/18/21 08/19/21 21:08 21:08 06:22 WBC 5.71 D RBC 3.33 L Hgb 10.6 L 10.6 L Hct 32.2 L 31.2 L MCV 93.7 MCH 31.8 MCHC 34.0 RDW 16.2 H Plt Count 188 MPV 9.2 Immature Gran % 0.4 Neutrophils % 79.5 Lymphocytes % 15.9 Monocytes % 3.7 Eosinophils % 0.0 Basophils % 0.5 Nucleated RBC % 0 Absolute Neutrophils 4.54 Absolute Lymphocytes 0.91 L Absolute Monocytes 0.21 Absolute Eosinophils 0.00 Absolute Basophils 0.03 VBG Lactate Sodium 142 Potassium 3.7 D Chloride 106 Carbon Dioxide 29.4 Anion Gap 6.6 BUN 18 Creatinine 1.0 Estimated GFR/1.73 m2 >= 60.00 Glucose 159 H Calcium 8.6 Magnesium Total Bilirubin AST ALT Alkaline Phosphatase Creatine Kinase Troponin I C-Reactive Protein Total Protein Albumin Procalcitonin Urine Color Urine Clarity Urine pH Ur Specific [place] Urine Protein Urine Ketones Urine Blood Urine Nitrite Urine Bilirubin Urine Urobilinogen Ur Leukocyte Esterase Urine RBC Urine WBC Ur Epithelial Cells Urine Crystals Urine Bacteria Urine Casts Urine Mucus Ur Culture Indicated? Urine Glucose COVID-19 Source SARS-CoV-2 (PCR) 08/19/21 08/19/21 06:22 06:22 WBC RBC Hgb Hct MCV MCH MCHC RDW Plt Count MPV Immature Gran % Neutrophils % Lymphocytes % Monocytes % Eosinophils % Basophils % Nucleated RBC % Absolute Neutrophils Absolute Lymphocytes Absolute Monocytes Absolute Eosinophils Absolute Basophils VBG Lactate Sodium 141 Potassium 3.6 Chloride 104 Carbon Dioxide 30.2 Anion Gap 6.8 BUN 14 Creatinine 0.9 Estimated GFR/1.73 m2 >= 60.00 Glucose 145 H Calcium 8.3 L Magnesium 1.7 L Total Bilirubin 0.7 AST 29 ALT 23 Alkaline Phosphatase 80 Creatine Kinase Troponin I C-Reactive Protein Total Protein 5.9 L Albumin 2.7 L Procalcitonin Urine Color Urine Clarity Urine pH Ur Specific [place] Urine Protein Urine Ketones Urine Blood Urine Nitrite Urine Bilirubin Urine Urobilinogen Ur Leukocyte Esterase Urine RBC Urine WBC Ur Epithelial Cells Urine Crystals Urine Bacteria Urine Casts Urine Mucus Ur Culture Indicated? Urine Glucose COVID-19 Source SARS-CoV-2 (PCR) Review of Systems All systems reviewed & are unremarkable except as noted in HPI and below Time spent with patient Time spent in Critical Care: 45 Time spent in Critical care included: Coordination of care, Chart review, Documenting critically ill care, Time at immediate bedside and Discussing critically ill care with other medical staff
[2021-08-19 09:01] LABS: BE (Venous) 6 mmol/L (-2-3); HCO3 (Venous) 31 mmol/L (23-28); O2 Sat (Venous) 73 %; TCO2 (Venous) 28 mmol/L (24-29); pCO2 (Venous) 46 mmHg (41-51); pH (Venous) 7.44 (7.31-7.41); pO2 (Venous) 39 mmHg
[2021-08-19] MEDS: Sertraline 50 MG TAB PO (09:04)
[2021-08-19] MEDS: Cyanocobalamin 500 MCG TAB 1000 MCG PO (09:04)
[2021-08-19] MEDS: Docusate Sodium 100 MG CAP PO (09:04)
[2021-08-19] MEDS: Aspirin E.C. 81 MG TABEC PO (09:05)
[2021-08-19] MEDS: Gabapentin 100 MG CAP PO ×3 (09:05→20:29)
[2021-08-19] MEDS: Normal Saline 500 ML 10 ML IV (09:06)
[2021-08-19] MEDS: Atorvastatin 40 MG TAB PO (09:07)
--- NOTE | 2021-08-19 09:17 | W.PM.PROGNOT ---
Date of Service Date of service: 08/19/21 Time of Service: 07:30 Assessment and Plan Assessment and plan (1) Sepsis: Status: Suspected Assessment and plan: Possible sepsis secondary to urinary tract. I did a [id number] ultrasound of his kidneys and saw no hydronephrosis. However we will get a formal ultrasound. Urine and blood cultures are pending at this time. He remains on Zosyn and vancomycin. Qualifiers: Sepsis acute organ dysfunction status: without acute organ dysfunction Sepsis type: sepsis due to unspecified organism Qualified Code(s): A41.9 - Sepsis, unspecified organism (2) Hypotension: Status: Acute Assessment and plan: Patient was stabilized last night with norepinephrine and fluid boluses. He is now alert with stable blood pressures. With MAP's in the high 60s and low 70s. Norepinephrine has now been weaned off. Differential diagnosis includes adrenal insufficiency as well as sepsis. Patient's been put on high-dose hydrocortisone last night. We will continue this for the next couple days and then wean him off IV corticosteroids.. Qualifiers: Hypotension type: unspecified hypotension type Qualified Code(s): I95.9 - Hypotension, unspecified (3) Status epilepticus: Status: Acute Assessment and plan: Continue Keppra 1 g IV every 12 hours. Will consult with neurology. EEG was ordered and reading is pending at this time.MRI is performed and shows left parietal enhancing lesion that reportedly is about a millimeter larger than previous study from 08/10/2021. No evidence of acute intracranial hemorrhage or infarct. (4) Focal motor epilepsy: Status: Acute Assessment and plan: As above (5) Brain mass: Status: Chronic Assessment and plan: No evidence of cerebral edema or cerebral hemorrhage on his CT scan or MRI scan. Upon discharge follow-up with his oncologist to arrange radiation treatment (6) History of bladder cancer: Status: Acute Assessment and plan: Reportedly with metastatic disease in his pelvis and now with a brain mets. (7) Bacteriuria with pyuria: Status: Acute Assessment and plan: Rule out UTI. Urine culture has been sent patient is on broad-spectrum antibiotics pending the results of blood and urine cultures. 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 Patient is now able to take p.o. medications. (9) Palliative care patient: Status: Acute Assessment and plan: Palliative care consult obtained with Dr. Marika Finley who discussed the patient's condition with his at the present time patient will remain a full code per the 's choice based on her understanding of her 's wishes. (10) Carotid stenosis, right: Status: Acute Assessment and plan: Patient has history of embolic stroke and High-grade stenosis of his proximal right internal carotid artery representing 90% stenosis. He has milder stenosis at the origin of the left internal carotid artery. No high-grade stenosis in the intracerebral vessels. Continue aspirin 81 mg daily along with atorvastatin 40 mg daily (11) DVT prophylaxis: Status: Acute Assessment and plan: Lovenox 40 mg subcutaneously daily Subjective Subjective Interval history since last seen: Overall the patient is feeling better although he is having some paresthesias in his arms. He has exhibited no focal motor deficits in his arms and has had no further seizures. Exam Narrative Exam Narrative: Elderly white male who is lying in bed semifowler position he is alert he is oriented to person and knows he is in the hospital. Lungs are clear to auscultation Heart regular rate and rhythm with a soft systolic murmur over the apex no thrill or heave Abdomen soft nontender nondistended normal bowel sounds Extremities without peripheral edema or cyanosis. Neuro exam patient is alert and oriented to person and place, moves all 4 extremities well with good strength with the exception of a right foot drop which apparently is chronic Objective Last Vital Signs Temp 36.6 C 08/19/21 06:00 Pulse 59 L 08/19/21 06:01 Resp 9 L 08/19/21 06:01 BP 116/53 L 08/19/21 06:01 Pulse Ox 97 08/19/21 05:31 Laboratory Results - last 24 hr 08/18/21 08/18/21 08/18/21 10:13 10:13 10:40 WBC 12.10 H RBC 3.62 L Hgb 11.4 L Hct 34.7 L MCV 95.9 H MCH 31.5 MCHC 32.9 RDW 16.5 H Plt Count 269 MPV 9.0 Immature Gran % 0.3 Neutrophils % 51.2 Lymphocytes % 36.4 Monocytes % 9.3 Eosinophils % 1.9 Basophils % 0.9 Nucleated RBC % 0 Absolute Neutrophils 6.20 Absolute Lymphocytes 4.40 H Absolute Monocytes 1.13 H Absolute Eosinophils 0.23 Absolute Basophils 0.11 VBG pH VBG pCO2 VBG pO2 VBG HCO3 VBG Total CO2 VBG O2 Saturation VBG Base Excess VBG Lactate Sodium 141 Potassium 5.1 Chloride 103 Carbon Dioxide 17.6 L Anion Gap 20.4 H BUN 20 H Creatinine 1.3 Estimated GFR/1.73 m2 53.39 Glucose 147 H Calcium 9.0 Magnesium 1.5 L Total Bilirubin 0.7 AST 28 ALT 28 Alkaline Phosphatase 101 Creatine Kinase Troponin I < 0.05 C-Reactive Protein Total Protein 7.6 Albumin 3.3 L Procalcitonin Urine Color Urine Clarity Urine pH Ur Specific [place] Urine Protein Urine Ketones Urine Blood Urine Nitrite Urine Bilirubin Urine Urobilinogen Ur Leukocyte Esterase Urine RBC Urine WBC Ur Epithelial Cells Urine Crystals Urine Bacteria Urine Casts Urine Mucus Ur Culture Indicated? Urine Glucose COVID-19 Source Nasal/Nares SARS-CoV-2 (PCR) Negative 08/18/21 08/18/21 08/18/21 11:05 15:48 15:48 WBC RBC Hgb Hct MCV MCH MCHC RDW Plt Count MPV Immature Gran % Neutrophils % Lymphocytes % Monocytes % Eosinophils % Basophils % Nucleated RBC % Absolute Neutrophils Absolute Lymphocytes Absolute Monocytes Absolute Eosinophils Absolute Basophils VBG pH VBG pCO2 VBG pO2 VBG HCO3 VBG Total CO2 VBG O2 Saturation VBG Base Excess VBG Lactate 1.8 H Sodium Potassium Chloride Carbon Dioxide Anion Gap BUN Creatinine Estimated GFR/1.73 m2 Glucose Calcium Magnesium Total Bilirubin AST ALT Alkaline Phosphatase Creatine Kinase Troponin I C-Reactive Protein Total Protein Albumin Procalcitonin 0.1 Urine Color Yellow Urine Clarity Clear Urine pH 6.0 Ur Specific [place] 1.025 Urine Protein Trace H Urine Ketones Negative Urine Blood Negative Urine Nitrite Negative Urine Bilirubin Negative Urine Urobilinogen 0.2 Ur Leukocyte Esterase Trace H Urine RBC Negative Urine WBC 10-20 H Ur Epithelial Cells Rare Urine Crystals Negative Urine Bacteria Rare Urine Casts 3-5 Hyaline Urine Mucus Negative Ur Culture Indicated? Yes Urine Glucose Negative COVID-19 Source SARS-CoV-2 (PCR) 08/18/21 08/18/21 08/18/21 15:48 21:08 21:08 WBC RBC Hgb Hct MCV MCH MCHC RDW Plt Count MPV Immature Gran % Neutrophils % Lymphocytes % Monocytes % Eosinophils % Basophils % Nucleated RBC % Absolute Neutrophils Absolute Lymphocytes Absolute Monocytes Absolute Eosinophils Absolute Basophils VBG pH VBG pCO2 VBG pO2 VBG HCO3 VBG Total CO2 VBG O2 Saturation VBG Base Excess VBG Lactate 1.1 Sodium Potassium Chloride Carbon Dioxide Anion Gap BUN Creatinine Estimated GFR/1.73 m2 Glucose Calcium Magnesium Total Bilirubin AST ALT Alkaline Phosphatase Creatine Kinase 146 Troponin I C-Reactive Protein 1.15 H Total Protein Albumin Procalcitonin Urine Color Urine Clarity Urine pH Ur Specific [place] Urine Protein Urine Ketones Urine Blood Urine Nitrite Urine Bilirubin Urine Urobilinogen Ur Leukocyte Esterase Urine RBC Urine WBC Ur Epithelial Cells Urine Crystals Urine Bacteria Urine Casts Urine Mucus Ur Culture Indicated? Urine Glucose COVID-19 Source SARS-CoV-2 (PCR) 08/18/21 08/18/21 08/19/21 21:08 21:08 06:22 WBC 5.71 D RBC 3.33 L Hgb 10.6 L 10.6 L Hct 32.2 L 31.2 L MCV 93.7 MCH 31.8 MCHC 34.0 RDW 16.2 H Plt Count 188 MPV 9.2 Immature Gran % 0.4 Neutrophils % 79.5 Lymphocytes % 15.9 Monocytes % 3.7 Eosinophils % 0.0 Basophils % 0.5 Nucleated RBC % 0 Absolute Neutrophils 4.54 Absolute Lymphocytes 0.91 L Absolute Monocytes 0.21 Absolute Eosinophils 0.00 Absolute Basophils 0.03 VBG pH VBG pCO2 VBG pO2 VBG HCO3 VBG Total CO2 VBG O2 Saturation VBG Base Excess VBG Lactate Sodium 142 Potassium 3.7 D Chloride 106 Carbon Dioxide 29.4 Anion Gap 6.6 BUN 18 Creatinine 1.0 Estimated GFR/1.73 m2 >= 60.00 Glucose 159 H Calcium 8.6 Magnesium Total Bilirubin AST ALT Alkaline Phosphatase Creatine Kinase Troponin I C-Reactive Protein Total Protein Albumin Procalcitonin Urine Color Urine Clarity Urine pH Ur Specific [place] Urine Protein Urine Ketones Urine Blood Urine Nitrite Urine Bilirubin Urine Urobilinogen Ur Leukocyte Esterase Urine RBC Urine WBC Ur Epithelial Cells Urine Crystals Urine Bacteria Urine Casts Urine Mucus Ur Culture Indicated? Urine Glucose COVID-19 Source SARS-CoV-2 (PCR) 08/19/21 08/19/21 08/19/21 06:22 06:22 08:58 WBC RBC Hgb Hct MCV MCH MCHC RDW Plt Count MPV Immature Gran % Neutrophils % Lymphocytes % Monocytes % Eosinophils % Basophils % Nucleated RBC % Absolute Neutrophils Absolute Lymphocytes Absolute Monocytes Absolute Eosinophils Absolute Basophils VBG pH 7.44 H VBG pCO2 46 VBG pO2 39 VBG HCO3 31 H VBG Total CO2 28 VBG O2 Saturation 73 VBG Base Excess 6 H VBG Lactate Sodium 141 Potassium 3.6 Chloride 104 Carbon Dioxide 30.2 Anion Gap 6.8 BUN 14 Creatinine 0.9 Estimated GFR/1.73 m2 >= 60.00 Glucose 145 H Calcium 8.3 L Magnesium 1.7 L Total Bilirubin 0.7 AST 29 ALT 23 Alkaline Phosphatase 80 Creatine Kinase Troponin I C-Reactive Protein Total Protein 5.9 L Albumin 2.7 L Procalcitonin Urine Color Urine Clarity Urine pH Ur Specific [place] Urine Protein Urine Ketones Urine Blood Urine Nitrite Urine Bilirubin Urine Urobilinogen Ur Leukocyte Esterase Urine RBC Urine WBC Ur Epithelial Cells Urine Crystals Urine Bacteria Urine Casts Urine Mucus Ur Culture Indicated? Urine Glucose COVID-19 Source SARS-CoV-2 (PCR) PAWSS Have you Been Recently Intoxicated or Drunk Within the Last 30 days?: No Have you Ever Experienced Previous Episodes of Alcohol Withdrawal?: No Have you ever Experienced Withdrawal Seizures?: No Have you ever Experienced Delirium Tremens(DT)s?: No Have you ever undergone Alcohol Rehabilitation Treatment (i.e, inpt ot outpatient treatment programs)?: No Have you ever Experienced Blackouts?: No Have you ever Combined Alcohol with other Downers within the last 90 days?: No Have you ever Combined Alcohol with any other Substance of Abuse during the last 90 days?: No Positive Blood Alcohol level on Presentation? [PCS.BAL]: No Evidence of Increased Autonomic Activity (i.e. HR>120, tremor, sweating, agitation, nausea)?: No Result: 0
[2021-08-19] MEDS: levETIRAcetam 1,000 MG in Normal Saline 100 ML 400 MG IVPB (09:26)
--- NOTE | 2021-08-19 12:21 | PDOC.CMIN ---
- If Service Date Differs Date of service: 08/19/21 Time of Service: 12:21 Care Management Initial Assess REASON FOR HOSPITALIZATION:: Seizure, metastatic bladder cancer PAST MEDICAL HISTORY/PAST SURGICAL HISTORY:: Active Problem List. Focal motor epilepsy (Acute). Status epilepticus (Acute). Lymphedema of left lower extremity (Acute). B12 deficiency (Acute). Hypokalemia (Acute). POLST (Physician Orders for Life-Sustaining Treatment) (Acute). Sun-damaged skin (Acute). Former smoker, stopped smoking in distant past (Acute). Adverse drug effect (Chronic). Dental caries (Acute). Expressive aphasia (Acute). Goals of care, counseling/discussion (Acute). Palliative care patient (Acute). Carotid stenosis, right (Acute). DVT prophylaxis (Acute). Discharge planning issues (Acute). Acute embolic stroke (Acute). Brain mass (Chronic). Malignant neoplasm metastatic from bladder (Acute). Acute UTI (Acute). Aphasia (Acute). TIA (transient ischemic attack) (Acute). Constipation (Acute). History of bladder cancer (Acute). Maintenance chemotherapy (Acute). 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 Urinary retention (Acute). Frequency of micturition (Acute 03/10/16). 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 Urethral lesion (Acute). Medical History. Angina pectoris. BPH (benign prostatic hyperplasia). Coronary artery disease. History of snoring. Hypertension PREVIOUS FUNCTIONAL STATUS/SOCIAL/FAMILY SUPPORTS:: Amy lives in [place], [place] with his Marika. He has one daughter of his own and Marika has 4 children. 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 Amy shared that his primary residence is in [place] but he and his spend several months each year in [place], generally from January until October. CURRENT FUNCTIONAL STATUS:: Danny was sitting up on the edge of his bed when CM met with him. He stated that he feels better and he would like to return home. His , Marika, was in the room, visiting. Per report, he is improving, but the provider would like to continue to monitor him. CM discussed services at home, but him and his agreed that they are getting along ok at home, and don't feel that services are indicated at this time. CM will continue to follow. ADVANCE DIRECTIVES:: None on file. Has patient been provided with info about the portal/API?: Yes Did the patient sign up for the portal?: No CODE STATUS:: Full Code INSURANCE COVERAGE / FINANCIAL ISSUES:: Medicare. BS. CURRENT HOME/COMMUNITY SERVICES/EQUIPMENT:: None currently. PRIMARY CARE PHYSICIAN:: Chapo Menon POTENTIAL DISCHARGE NEEDS:: Follow up with PCP and plan of care PATIENT/FAMILY EDUCATION NEEDS:: Review of discharge instructions, medications, activity, limitations, Ask Me Three ANTICIPATED BARRIERS TO DISCHARGE:: None identified at this time. TRANSPORTATION:: via private vehicle with family PLAN:: Amy will likely be discharged home with no new services. He will follow up with his community providers and plan of care. It is unclear if he will pursue further workup of the newly identified lesion in his brain. CM will continue to support Amy and his discharge planning needs.
[2021-08-19] MEDS: Enoxaparin 40 MG/0.4 ML SYR SC (13:50)
--- NOTE | 2021-08-19 17:18 | CHAPLAIN ---
Danny was sitting up in the chair in his room when I visited this morning. He engaged in a conversation, but offered short responses, then asked if I know Remi Munson, the invoicing machine operator at [facility]. She is a neighbor of Mallory. Amy seemed more interested in a conversation knowing that we had a friend in common. I left the room when nursing came into provide care and we had not spoken about Amy's diagnosis. I let him know that wooden boat builder is available 23/04.
--- NOTE | 2021-08-19 17:39 | W.PALPGNOTE ---
Date of service: 08/19/21 Time of Service: 17:39 Assessment and Plan Assessment and plan (1) Sepsis: Status: Suspected Qualifiers: Sepsis type: sepsis due to unspecified organism Sepsis acute organ dysfunction status: without acute organ dysfunction Qualified Code(s): A41.9 - Sepsis, unspecified organism (2) Bacteriuria with pyuria: Status: Acute (3) Focal motor epilepsy: Status: Acute (4) Goals of care, counseling/discussion: Status: Acute (5) Carotid stenosis, right: Status: Acute (6) Acute embolic stroke: Status: Acute (7) Brain mass: Status: Chronic (8) Malignant neoplasm metastatic from bladder: Status: Acute (9) 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 He is feeling better. We discussed CODE status. He is a DNR/DNI. He has named his Marika to be his health care agent, he wants transfer to the hospital, he wants the use of or limitation of antibiotics to be determined when an infection occurs, with comfort as goal. He does not want a feeding tube, he is agreeable to a trial period of parenteral nutrition or IVF with a goal of returning to baseline. He has chosen limited additional interventions for his overall care. A COLST was completed to reflect his wishes. Follow up with oncology. He has a scan scheduled for 08/26. He will follow up with palliative as outpatient in August (appointment previously scheduled). He will be going to [place] in October. Follow up inpatient Palliative as needed. Subjective Subjective Interval history since last seen: Danny was seen in follow up for Palliative care. He is feeling much better. He is awake and alert at this time. We reviewed CODE status and completed a COLST from. After reviewing, He is clear that he is a DNR/DNI, he has named his Marika to be his health care agent, he wants transfer to the hospital, he wants the use of or limitation of antibiotics to be determined when an infection occurs, with comfort as goal. He does not want a feeding tube, he is agreeable to a trial period of parenteral nutrition or IVF with a goal of returning to baseline. He has chosen limited additional interventions for his overall care. We completed a COLST to reflect his wishes. He is pleased that his right arm tremors have resolved. He is eating and drinking. He hopes to be discharged tomorrow. He has follow up scheduled with oncology. He has a scan scheduled for 08/26. He has Palliative follow up scheduled for August. He is going back to [place], [place] in October. He likes to talk about skiing. His grandchildren are 2 and 5 yo and will be skiing at [employer], they live in [place]. Exam Narrative Exam Narrative: General: very pleasant and talkative man, laying in bed, awake and alert, answers questions appropriately. HEENT: atraumatic, EOMI, mucous membranes moist. Neck: supple, no JVD. Respiratory: respirations appear even and unlabored. Extremities: moves all 4 extremities, no tremor noted. Objective Last Vital Signs Temp 35.9 C L 08/19/21 16:30 Pulse 69 08/19/21 16:03 Resp 16 08/19/21 17:20 BP 103/51 L 08/19/21 16:03 Pulse Ox 87 L 08/19/21 14:10 Laboratory Results - last 24 hr 08/18/21 08/18/21 08/18/21 10:40 15:48 15:48 WBC RBC Hgb Hct MCV MCH MCHC RDW Plt Count MPV Immature Gran % Neutrophils % Lymphocytes % Monocytes % Eosinophils % Basophils % Nucleated RBC % Absolute Neutrophils Absolute Lymphocytes Absolute Monocytes Absolute Eosinophils Absolute Basophils VBG pH VBG pCO2 VBG pO2 VBG HCO3 VBG Total CO2 VBG O2 Saturation VBG Base Excess VBG Lactate Sodium Potassium Chloride Carbon Dioxide Anion Gap BUN Creatinine Estimated GFR/1.73 m2 Glucose Calcium Magnesium Total Bilirubin AST ALT Alkaline Phosphatase Creatine Kinase 146 C-Reactive Protein Total Protein Albumin Procalcitonin 0.1 SARS-CoV-2 (PCR) Negative 08/18/21 08/18/21 08/18/21 21:08 21:08 21:08 WBC RBC Hgb 10.6 L Hct 32.2 L MCV MCH MCHC RDW Plt Count MPV Immature Gran % Neutrophils % Lymphocytes % Monocytes % Eosinophils % Basophils % Nucleated RBC % Absolute Neutrophils Absolute Lymphocytes Absolute Monocytes Absolute Eosinophils Absolute Basophils VBG pH VBG pCO2 VBG pO2 VBG HCO3 VBG Total CO2 VBG O2 Saturation VBG Base Excess VBG Lactate 1.1 Sodium Potassium Chloride Carbon Dioxide Anion Gap BUN Creatinine Estimated GFR/1.73 m2 Glucose Calcium Magnesium Total Bilirubin AST ALT Alkaline Phosphatase Creatine Kinase C-Reactive Protein 1.15 H Total Protein Albumin Procalcitonin SARS-CoV-2 (PCR) 08/18/21 08/19/21 08/19/21 21:08 06:22 06:22 WBC 5.71 D RBC 3.33 L Hgb 10.6 L Hct 31.2 L MCV 93.7 MCH 31.8 MCHC 34.0 RDW 16.2 H Plt Count 188 MPV 9.2 Immature Gran % 0.4 Neutrophils % 79.5 Lymphocytes % 15.9 Monocytes % 3.7 Eosinophils % 0.0 Basophils % 0.5 Nucleated RBC % 0 Absolute Neutrophils 4.54 Absolute Lymphocytes 0.91 L Absolute Monocytes 0.21 Absolute Eosinophils 0.00 Absolute Basophils 0.03 VBG pH VBG pCO2 VBG pO2 VBG HCO3 VBG Total CO2 VBG O2 Saturation VBG Base Excess VBG Lactate Sodium 142 Potassium 3.7 D Chloride 106 Carbon Dioxide 29.4 Anion Gap 6.6 BUN 18 Creatinine 1.0 Estimated GFR/1.73 m2 >= 60.00 Glucose 159 H Calcium 8.6 Magnesium 1.7 L Total Bilirubin AST ALT Alkaline Phosphatase Creatine Kinase C-Reactive Protein Total Protein Albumin Procalcitonin SARS-CoV-2 (PCR) 08/19/21 08/19/21 06:22 08:58 WBC RBC Hgb Hct MCV MCH MCHC RDW Plt Count MPV Immature Gran % Neutrophils % Lymphocytes % Monocytes % Eosinophils % Basophils % Nucleated RBC % Absolute Neutrophils Absolute Lymphocytes Absolute Monocytes Absolute Eosinophils Absolute Basophils VBG pH 7.44 H VBG pCO2 46 VBG pO2 39 VBG HCO3 31 H VBG Total CO2 28 VBG O2 Saturation 73 VBG Base Excess 6 H VBG Lactate Sodium 141 Potassium 3.6 Chloride 104 Carbon Dioxide 30.2 Anion Gap 6.8 BUN 14 Creatinine 0.9 Estimated GFR/1.73 m2 >= 60.00 Glucose 145 H Calcium 8.3 L Magnesium Total Bilirubin 0.7 AST 29 ALT 23 Alkaline Phosphatase 80 Creatine Kinase C-Reactive Protein Total Protein 5.9 L Albumin 2.7 L Procalcitonin SARS-CoV-2 (PCR)
[2021-08-19] MEDS: Magnesium Oxide 400 MG TAB 800 MG PO (20:29)
[2021-08-19] MEDS: levETIRAcetam 500 MG TAB 1000 MG PO (20:29)
[2021-08-20] MEDS: PIPERACILLIN/TAZO 4.5 GM in Normal Saline 100 ML IVPB ×2 (00:59→08:31)
[2021-08-20] MEDS: Hydrocortisone SOD SUC. 100 MG VIAL 50 MG IVP ×3 (01:00→12:10)
[2021-08-20] MEDS: Normal Saline Flush 10 ML SYR IVP ×3 (01:33→08:32)
[2021-08-20] MEDS: Lactated Ringers 1,000 ML 85 ML IV (01:42)
[2021-08-20 02:00] VITALS: BP 116/68; PULSE 75; RESP 16; TEMP 36.5; O2SAT 92
[2021-08-20 07:07] LABS: Abs Immature Grans 0.03 10^3/uL (0.0-0.06); Absolute Basophil Count 0.03 10^3/uL (0.0-0.2); Absolute Lymphocyte Count 1.65 10^3/uL (1.2-3.4); Absolute Monocyte Count 0.65 10^3/uL (0.1-0.8); Basophils % 0.4; HCT 29.3 % (40.0-50.0); HGB 9.7 g/dL (13.5-17.5); Immature Grans % 0.4; Lymphocytes % 22.1; MCH 31.9 pg (27.0-33.0); MCHC 33.1 % (32.0-36.0); MCV 96.4 fL (80-95); MPV 9.3 fL (8.0-11.0); Monocytes % 8.7; Neutrophils % 68.4; Nucleated RBC 0 %; Platelet Count 163 10^3/uL (130-400); RBC 3.04 10^6/uL (4.36-5.78); RDW 16.2 % (11.8-14.1); RDW-SD 56.4 fL; WBC 7.46 10^3/uL (4.4-10.8)
[2021-08-20 07:19] LABS: BUN 16 mg/dL (7-18); Calcium 8.2 mg/dL (8.5-10.1); Chloride 106 mmol/L (98-107); Glucose 120 mg/dL (74-106); Sodium 143 mmol/L (136-145)
[2021-08-20 07:22] LABS: C-Reactive Protein 1.91 mg/dL (0.0-0.3); Magnesium 1.9 mg/dL (1.8-2.4)
[2021-08-20 07:23] LABS: Potassium 2.8 mmol/L (3.5-5.1)
[2021-08-20 07:35] VITALS: BP 144/75; PULSE 69; RESP 18; TEMP 36.5; O2SAT 96
[2021-08-20] MEDS: Cyanocobalamin 500 MCG TAB 1000 MCG PO (08:29)
[2021-08-20] MEDS: levETIRAcetam 500 MG TAB 1000 MG PO (08:29)
[2021-08-20] MEDS: Sertraline 50 MG TAB PO (08:29)
[2021-08-20] MEDS: Magnesium Oxide 400 MG TAB 800 MG PO (08:29)
[2021-08-20] MEDS: Aspirin E.C. 81 MG TABEC PO (08:29)
[2021-08-20] MEDS: Gabapentin 100 MG CAP PO (08:29)
[2021-08-20] MEDS: Docusate Sodium 100 MG CAP PO (08:30)
[2021-08-20] MEDS: Atorvastatin 40 MG TAB PO (08:30)
[2021-08-20] MEDS: Atenolol 25 MG TAB PO (08:30)
[2021-08-20] MEDS: POTASSIUM CHLORIDE 10 MEQ/100 ML BAG 100 MEQ IVPB ×3 (08:32→11:18)
[2021-08-20] MEDS: VANCOMYCIN/WATER (PEG) 1 GM/200 ML BAG IV (10:03)
--- NOTE | 2021-08-20 10:45 | W.PM.DS.N ---
Date of service: 08/20/21 Time of Service: 10:46 DS: Diagnosis Discharge Diagnosis (1) Septic shock: Status: Acute (2) Focal motor epilepsy: Status: Acute (3) Status epilepticus: Status: Acute (4) Hypokalemia: Status: Acute (5) Brain mass: Status: Chronic (6) Malignant neoplasm metastatic from bladder: Status: Acute (7) Acute UTI: Status: Acute (8) Hypomagnesemia: Status: Acute Discharge Plan Disposition Patient Disposition: HOME Condition: Fair Discharge Details Reason For Visit: Seizure,Metastatic Bladder Cancer Admit Date/Time: 08/18/21 12:51 Admit Provider: Gilberto Monae Attending Provider: Gilberto Monae Primary Care Provider: Chapo Menon Hospital Course Hospital Course: 80-year-old right-handed male with a history of metastatic bladder cancer status post radical cystectomy with ileal conduit, history of prior CVA, hypertension, hyperlipidemia who was admitted to [facility] 06/22/2021 through 06/24/2021 with symptoms of expressive aphasia dysarthria. CT of his head without contrast demonstrated area in the left parietal lobe interpreted as calcification versus small area of hemorrhage and subsequent MRI was performed and showed a 10 x 11 mm solitary ring-enhancing lesion in the left parietal lobe consistent with a neoplasm without surrounding edema and was also found to have an embolic CVA in the high left frontal lobe. CT of the head neck revealed high-grade stenosis of proximal right internal carotid artery as well as an occluded external right carotid artery. Patient was initiated on aspirin 81 mg daily per neurology recommendation EEG was performed an echocardiogram was performed. He was referred for follow-up with neurology and referred for follow-up with his oncologist Dr. Wadsworth. Patient has been receiving chemotherapy and was being evaluated for radiation treatment of his brain metastasis. He was brought in by EMS after acute onset of right arm and hand paraparesis and right sided tremors however on arrival to the emergency department he had what was reported as full body tonic-clonic seizure activity with the right side worse than the left. He was also noted to have weakness in his right upper extremity. He was given Ativan 2 mg IV and bolused with Keppra 1 g. Subsequently was given a loading dose of fosphenytoin. Because of concern for seizure being secondary to brain lesion such as an acute hemorrhage CT scan of the head was performed which showed a small lesion in the high left parietal lobe that appear to be smaller than on the previous CT study of 06/22/2021. He was also noted to have acute sinusitis with fluid levels in both maxillary sinuses. Dr. Darrel Covarrubias emergency room attending called [facility] transfer center request transfer given his history of metastatic disease and new onset seizure related to his brain lesion. [facility] was at capacity and refused transfer. Dr. Covarrubias gave the patient Unasyn 3 g IV for his sinusitis. While the patient initially presented as hypertensive and tachycardic he subsequently developed hypotension emergency department but responded to 500 mL of LR. An MRI of the brain with and without an EEG was ordered per Dr. Salomon's recommendation. Upon arrival to the intensive care unit patient was noted to be hypotensive with systolic blood pressures in the high 70s and low 80s and diastolic pressures in the 40s. Patient was given another 2 L of LR and norepinephrine drip was started at a rate of 0.15 mcg/kg/min which got his systolic blood pressure up into the 110s. Blood and urine cultures were obtained and the patient was started on vancomycin and Zosyn for possible sepsis. Is unclear whether the patient may have aspirated or not with his seizure and also his urinalysis was suspicious for UTI. No chest x-ray was obtained emergency department but was subsequently obtained after placement of a central venous catheter. Urine was positive and did grow E.Coli. Notably, he had an E. Coli UTI in late June of this year. MRI brain showed the size of the left parietal enhancing lesion to be minimally increased compared to scan on 08/10/21. No acute intracranial hemorrhage or infarct. His lactate and WBC count normalized. The previous E.Coli sensitivities from 06/22/21 showed sensitivity to Levaquin (as well as the Zosyn that had been initiated). He was very adamant about going home. He had stabilized, had no further seizures and was feeling better. He will complete 12 days of Levaquin 750mg daily. Cont Keppra 1000mg BID. Follow up with oncology next Sunday as previously scheduled. Follow up with PCP in 2 weeks. Home Meds and New Rx's Prescriptions: New polyethylene glycol 3350 17 gram Powder In Packet 17 g PO DAILY PRN PRN (Reason: Constipation) Qty: 0 RF: 0 magnesium oxide 400 mg (241.3 mg magnesium) Tablet 400 mg PO BID Qty: 0 RF: 0 levetiracetam 1,000 mg tablet 1,000 mg PO BID Qty: 60 RF: 0 levofloxacin 750 mg tablet 750 mg PO HS Qty: 12 RF: 0 Continued docusate sodium [Colace] 100 mg capsule 100 mg PO DAILY RF: 0 atorvastatin 40 MG tablet 40 mg PO DAILY RF: 0 atenolol 25 MG tablet 25 mg PO DAILY RF: 0 sertraline 50 MG tablet 50 mg PO DAILY RF: 0 prochlorperazine maleate 10 mg tablet 10 mg PO Q6H PRN PRNRF: 0 gabapentin 100 mg capsule 100 mg PO TID RF: 0 magnesium citrate Solution 150 ml PO BID PRNQty: 300 RF: 0 aspirin 81 mg Tablet,Delayed Release (Dr/Ec) 81 mg PO DAILY Qty: 0 RF: 0 No Action cyanocobalamin (vitamin B-12) 1,000 mcg capsule 1,000 mcg PO DAILY Qty: 30 RF: 0 Discharge Instructions Stand Alone Forms: Nursing Discharge Form Referrals: Chapo Menon [Primary Care Provider] - (Please call Sunday to schedule follow up appointment for 2 weeks.) Activity:: Activity as Tolerated Equipment/Supplies:: No Equipment Needed Diet:: Resume usual diet Discharge Orders Discharge Orders: Discharge Order (Routine); Ordered 08/20/21 Ordered By: Preston Loyd Other Ambulatory Orders: Basic Metabolic Panel (Routine) Timeframe: 3 Days Location: None Selected Ordered By: Preston Loyd Discharge Data Discharge Date/Time-TO BE ENTERED AT DEPARTURE: 08/20/21 14:27 DS: Summary Time Spent with Patient providing and/or coordinating discharge services: Greater than 30 minutes Status at Discharge Functional status at discharge: independent ambulation Overall status at discharge: patient is progressing back to baseline Mental Status: mental status grossly normal Speech and Movement: speech clear Mood: congruent mood Affect: normal affect Exam Const General: cooperative and no acute distress Nutritional Appearance: average body habitus Orientation: alert and oriented x3 Neck Neck: no JVD and other (R IJ line in place.) Resp Effort & Inspection: normal respiratory effort Auscultation: clear to auscultation bilaterally Cardio Rate: regular rate Rhythm: regular rhythm Heart Sounds: S1 normal and murmur GI Palpation: soft and nontender Auscultation: normal bowel sounds Skin General skin exam: ecchymosis (scattered on BUEs) Extrem General: no pedal edema and no calf tenderness Psych Mental Status: mental status grossly normal Speech and Movement: speech clear Mood: congruent mood Affect: normal affect DS: Data Vitals/I&O Vitals and I&O: Vital Signs Temperature 36.5 C 08/20/21 07:35 Temperature Source Tympanic 08/20/21 07:35 Pulse 69 08/20/21 07:35 Pulse 69 08/19/21 21:00 Respiratory Rate 18 08/20/21 07:35 Respiratory Effort Non-Labored 08/20/21 04:54 Respiratory Depth Normal 08/20/21 04:54 Respiratory Pattern Normal 08/20/21 04:54 Blood Pressure 144/75 H 08/20/21 07:35 Blood Pressure Mean 68 08/19/21 20:01 Blood Pressure Position Supine 08/19/21 13:40 Pulse Oximetry 96 08/20/21 07:35 Oxygen Delivery Method Room Air 08/20/21 07:35 Oxygen Flow Rate 0 08/20/21 07:35 Pain Level 0 08/20/21 07:35 Intake & Output 08/19/21 08/19/21 08/20/21 11:59 23:59 11:59 Intake Total 1575.763 / 3832.096 2256.333 / 3832.096 898 / 898 Output Total 2000 / 2400 400 / 2400 Balance -424.237 / 7438.701 8358.333 / 1432.096 898 / 898 Weight 80.4 kg Intake: IV 1575.763 / 3567.096 1991.333 / 3567.096 778 / 778 Oral 265 / 265 120 / 120 Output: Urine 2000 / 2400 400 / 2400 Other: Urine Color Yellow Yellow Urine Appearance Cloudy Cloudy Clear Sediment Sediment Urine Odor None None Comment right ileo conduit draining to collection bag, urine remains clear pale yellow right ileal conduit with intact bag. Attached to grier bag draining clear yellow urine. Voiding Methods Ileal Conduit (Right) Ileal Conduit (Right) Data Completed and Pending Labs on day of discharge: Labs from last 24 hours 08/20/21 08/20/21 08/20/21 06:30 06:30 06:30 WBC 7.46 D RBC 3.04 L Hgb 9.7 L Hct 29.3 L MCV 96.4 H MCH 31.9 MCHC 33.1 RDW 16.2 H Plt Count 163 MPV 9.3 Immature Gran % 0.4 Neutrophils % 68.4 Lymphocytes % 22.1 Monocytes % 8.7 Eosinophils % 0.0 Basophils % 0.4 Nucleated RBC % 0 Absolute Neutrophils 5.10 Absolute Lymphocytes 1.65 Absolute Monocytes 0.65 Absolute Eosinophils 0.00 Absolute Basophils 0.03 Sodium 143 Potassium 2.8 L* Chloride 106 Carbon Dioxide 30.0 Anion Gap 7.0 BUN 16 Creatinine 1.0 Estimated GFR/1.73 m2 >= 60.00 Glucose 120 H Calcium 8.2 L Magnesium 1.9 C-Reactive Protein 1.91 H Cortisol Urine Color Urine Clarity Urine pH Ur Specific [place] Urine Protein Urine Ketones Urine Blood Urine Nitrite Urine Bilirubin Urine Urobilinogen Ur Leukocyte Esterase Urine RBC Urine WBC Ur Epithelial Cells Urine Crystals Urine Bacteria Urine Casts Urine Mucus Ur Culture Indicated? Urine Glucose 08/18/21 08/18/21 21:08 11:05 WBC RBC Hgb Hct MCV MCH MCHC RDW Plt Count MPV Immature Gran % Neutrophils % Lymphocytes % Monocytes % Eosinophils % Basophils % Nucleated RBC % Absolute Neutrophils Absolute Lymphocytes Absolute Monocytes Absolute Eosinophils Absolute Basophils Sodium Potassium Chloride Carbon Dioxide Anion Gap BUN Creatinine Estimated GFR/1.73 m2 Glucose Calcium Magnesium C-Reactive Protein Cortisol 11 Urine Color Yellow Urine Clarity Clear Urine pH 6.0 Ur Specific [place] 1.025 Urine Protein Trace H Urine Ketones Negative Urine Blood Negative Urine Nitrite Negative Urine Bilirubin Negative Urine Urobilinogen 0.2 Ur Leukocyte Esterase Trace H Urine RBC Negative Urine WBC 10-20 H Ur Epithelial Cells Rare Urine Crystals Negative Urine Bacteria Rare Urine Casts 3-5 Hyaline Urine Mucus Negative Ur Culture Indicated? Yes Urine Glucose Negative 08/19/21 17:30 Nose MRSA Screen - Pending Preliminary micro results at discharge 08/18/21 11:05 Urine Culture - Preliminary Urine - Reflex from Ua Escherichia coli Gram Positive Irma,Mixed Gram Negative Irma,Mixed 08/19/21 17:30 MRSA Screen - Pending Nose 08/18/21 15:37 Blood Culture - Preliminary Blood NO GROWTH 24 HOURS 08/18/21 15:48 Blood Culture - Preliminary Blood NO GROWTH 24 HOURS [facility] Active Problem List Seizure (Acute) Brain mass (Acute) Hypomagnesemia (Acute) Septic shock (Acute) Hypotension (Acute) Bacteriuria with pyuria (Acute) Focal motor epilepsy (Acute) Status epilepticus (Acute) Lymphedema of left lower extremity (Acute) B12 deficiency (Acute) Hypokalemia (Acute) POLST (Physician Orders for Life-Sustaining Treatment) (Acute) Sun-damaged skin (Acute) Former smoker, stopped smoking in distant past (Acute) Adverse drug effect (Chronic) Dental caries (Acute) Expressive aphasia (Acute) Goals of care, counseling/discussion (Acute) Palliative care patient (Acute) Carotid stenosis, right (Acute) DVT prophylaxis (Acute) Discharge planning issues (Acute) Acute embolic stroke (Acute) Brain mass (Chronic) Malignant neoplasm metastatic from bladder (Acute) Acute UTI (Acute) Aphasia (Acute) TIA (transient ischemic attack) (Acute) Constipation (Acute) History of bladder cancer (Acute) Maintenance chemotherapy (Acute) 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 Family History Daughter No problems noted. Other Diabetes Heart disease Lupus Social History Smoking/Tobacco Use Status: Former Tobacco Use Quit Date: 10/01/88 Tobacco: How many years used: 30 Counseling given: other Details: discussed link between smoking and bladder cancer Smoking risk assessment performed?: Yes Alcohol Intake: current Alcohol Intake frequency: 0-2 drinks per day Alcohol type: wine and hard liquor Counseling given: No Drug use: Never Substance use type: does not use Details: tried Hemp oil, Pt states wasn't helpful. 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 [employer] Do you think of yourself as: straight/heterosexual Current gender identity: male What is your relationship status?: How often do you talk on the phone with friends or family?: three or more times per week How often do you get together with friends or relatives?: once per week Panel score (0-1 are the most socially isolated patients): 2 What type of physical activity do you participate in: walking and occasional exercise Duration: 15-30 minutes/day Frequency: 3-4 times per week Special claire needs: No Seatbelt use: always Working smoke detector in home: Yes Fire extinguisher in home: Yes Do you feel safe at home: Yes Do you feel safe in your relationship?: Yes Additional Social history: to Marika, his second , for more than 40 years. Has one daughter from first marriage, Radha, who lives in [place], [place] with her 2 kids. Close to his stepson, Nelson, who lives in [place], [place]. Aileen lived a sailing life until he came down with cancer. He retired at age 72 and they lived in a sailing community in [place]. They are officially [facility] residents, but they have a second home in [place], [place]. Amy tells me that [facility] in [place] wouldn't handle my care any longer. He doesn't understand why. He is getting new treatment with Dr Patten and tolerating it. He was not surprised to hear about likely cancer mets to his brain. He reports that ever since he was diagnosed with bladder cancer, he has felt pretty lousy.
[2021-08-20] MEDS: Bacitracin 1 PACKET TP (14:10)
--- NOTE | 2021-08-20 15:37 | PDOC.CMDIS ---
- If Service Date Differs Date of service: 08/20/21 Time of Service: 15:37 LACE Index Scoring Tool - Questions: Length of Stay (in days): 2 Acuity (Admit via E.D.?): Yes Comorbidities: Cerebrovascular Disease E.D. Visits: 3 - Answers: Total Score: 9 Risk of Readmission: Low Risk Care Management Discharge Reason for Hospitalization: Seizure, metastatic bladder cancer Discharge Plan: Danny will return home today with no new services, as he feels that he does not need any further support at this time. His will drive him home via private vehicle. He will follow up with his PCP and discharge plan of care. Patient/Family Education Needs: Review discharge instructions regarding activity levels and medications, discussion of self care needs including ask me three and goals of care.
== END 2021-08-20 14:27 | disposition home or self-care (01) | DRG 100 ==
LOC: ER 13:04 → ICU 13:58 → MS 08-19 21:16
PROVIDERS: Student in an Organized Health Care Education/Training Program; Admitting Provider Internal Medicine; Emergency Provider Student in an Organized Health Care Education/Training Program; PCP Family Medicine; Visit Provider Internal Medicine
DX: G40.101 Localization-related (focal) (partial) symptomatic epilepsy and epileptic syndromes with simple partial seizures, not intractable, with status epilepticus (principal); A41.9 Sepsis, unspecified organism; R65.21 Severe sepsis with septic shock; C79.31 Secondary malignant neoplasm of brain; C79.89 Secondary malignant neoplasm of other specified sites; C77.5 Secondary and unspecified malignant neoplasm of intrapelvic lymph nodes; N39.0 Urinary tract infection, site not specified; C67.9 Malignant neoplasm of bladder, unspecified; Z86.73 Personal history of transient ischemic attack (TIA), and cerebral infarction without residual deficits; I65.21 Occlusion and stenosis of right carotid artery; Z90.6 Acquired absence of other parts of urinary tract; I89.0 Lymphedema, not elsewhere classified; E53.8 Deficiency of other specified B group vitamins; Z87.891 Personal history of nicotine dependence; I25.10 Atherosclerotic heart disease of native coronary artery without angina pectoris; I10 Essential (primary) hypertension; Z20.822 Contact with and (suspected) exposure to COVID-19; E87.6 Hypokalemia; E83.42 Hypomagnesemia; J01.00 Acute maxillary sinusitis, unspecified; B96.20 Unspecified Escherichia coli [E. coli] as the cause of diseases classified elsewhere
CPT/HCPCS: 36556; 36415; 36416; 36591; 51701; 70553; 71045; 80048; 80053; 82533; 82550; 82805; 82962; 84145; 87040; 87077; 87081; 87635; 93005; 95822; 96361; 96365; 96367; 96375; 99222; 99291; J1650; 70450; 81003; 81015; 83605; 83735; 84484; 85014; 85018; 85025; 86140; 87086; 87186; 93010; 99239; J0295; J1720; J1953; J2060; J2543; J3480; J3490

== ENCOUNTER 2021-08-23 01:34 | Outpatient (RCR) | payer MEDICARE, BC, SELFPAY ==
[2021-08-09 09:36] LABS: Abs Immature Grans 0.01 10^3/uL (0.0-0.06); Absolute Basophil Count 0.08 10^3/uL (0.0-0.2); Absolute Eosinophil Count 0.04 10^3/uL (0.0-0.7); Absolute Lymphocyte Count 1.47 10^3/uL (1.2-3.4); Absolute Monocyte Count 0.77 10^3/uL (0.1-0.8); Absolute Neutrophil Count 3.28 10^3/uL (1.2-6.7); Basophils % 1.4; Eosinophils % 0.7; HCT 34.8 % (40.0-50.0); HGB 11.4 g/dL (13.5-17.5); Immature Grans % 0.2; MCH 31.3 pg (27.0-33.0); MCHC 32.8 % (32.0-36.0); MCV 95.6 fL (80-95); Monocytes % 13.6; Neutrophils % 58.1; Nucleated RBC 0 %; Platelet Count 247 10^3/uL (130-400); RBC 3.64 10^6/uL (4.36-5.78); RDW 15.9 % (11.8-14.1); RDW-SD 54.9 fL; WBC 5.65 10^3/uL (4.4-10.8)
[2021-08-09 09:49] LABS: Albumin 3.3 g/dL (3.4-5.0); BUN 16 mg/dL (7-18); Bilirubin, Total 0.5 mg/dL (0.2-1.0); CREATININE 1.1 mg/dL (0.70-1.30); Calcium 8.8 mg/dL (8.5-10.1); Glucose 137 mg/dL (74-106); PHOSPHORUS 2.4 mg/dL (2.6-4.7); Total Protein 7.6 g/dL (6.4-8.2)
[2021-08-09 09:50] LABS: ALT 28 U/L (16-63); AST 23 U/L (15-37); Alkaline Phosphatase 92 U/L (46-116); Anion Gap 5.5 mmol/L (3-11); CO2 32.5 mmol/L (21.0-32.0); Chloride 104 mmol/L (98-107); Potassium 3.9 mmol/L (3.5-5.1); Sodium 142 mmol/L (136-145)
[2021-08-09 11:28] LABS: Magnesium 1.5 mg/dL (1.8-2.4)
[2021-08-16 10:04] LABS: Abs Immature Grans 0.01 10^3/uL (0.0-0.06); Absolute Basophil Count 0.08 10^3/uL (0.0-0.2); Absolute Eosinophil Count 0.15 10^3/uL (0.0-0.7); Absolute Lymphocyte Count 1.76 10^3/uL (1.2-3.4); Absolute Monocyte Count 0.68 10^3/uL (0.1-0.8); Absolute Neutrophil Count 3.38 10^3/uL (1.2-6.7); Basophils % 1.3; Eosinophils % 2.5; HCT 34.7 % (40.0-50.0); HGB 11.6 g/dL (13.5-17.5); Immature Grans % 0.2; MCH 32.1 pg (27.0-33.0); MCHC 33.4 % (32.0-36.0); MCV 96.1 fL (80-95); MPV 9.3 fL (8.0-11.0); Monocytes % 11.2; Neutrophils % 55.8; Nucleated RBC 0 %; Platelet Count 246 10^3/uL (130-400); RBC 3.61 10^6/uL (4.36-5.78); RDW-SD 56.4 fL; WBC 6.06 10^3/uL (4.4-10.8)
[2021-08-16 10:15] LABS: ALT 27 U/L (16-63); AST 24 U/L (15-37); Albumin 3.2 g/dL (3.4-5.0); Alkaline Phosphatase 92 U/L (46-116); Anion Gap 6.6 mmol/L (3-11); BUN 15 mg/dL (7-18); Bilirubin, Total 0.6 mg/dL (0.2-1.0); CO2 31.4 mmol/L (21.0-32.0); Chloride 105 mmol/L (98-107); Glucose 184 mg/dL (74-106); Magnesium 1.7 mg/dL (1.8-2.4); PHOSPHORUS 2.9 mg/dL (2.6-4.7); Potassium 4.3 mmol/L (3.5-5.1); Sodium 143 mmol/L (136-145); Total Protein 7.3 g/dL (6.4-8.2)
[2021-08-23 13:13] LABS: Abs Immature Grans 0.04 10^3/uL (0.0-0.06); Absolute Basophil Count 0.04 10^3/uL (0.0-0.2); Absolute Eosinophil Count 0.15 10^3/uL (0.0-0.7); Absolute Lymphocyte Count 1.38 10^3/uL (1.2-3.4); Absolute Monocyte Count 0.48 10^3/uL (0.1-0.8); Absolute Neutrophil Count 4.11 10^3/uL (1.2-6.7); Basophils % 0.6; Eosinophils % 2.4; HCT 32.9 % (40.0-50.0); HGB 10.8 g/dL (13.5-17.5); Immature Grans % 0.6; Lymphocytes % 22.3; MCH 31.6 pg (27.0-33.0); MCHC 32.8 % (32.0-36.0); MCV 96.2 fL (80-95); MPV 9.3 fL (8.0-11.0); Monocytes % 7.7; Neutrophils % 66.4; Nucleated RBC 0 %; Platelet Count 191 10^3/uL (130-400); RBC 3.42 10^6/uL (4.36-5.78); RDW 16.6 % (11.8-14.1); RDW-SD 57.9 fL
[2021-08-23 13:26] LABS: ALT 46 U/L (16-63); AST 43 U/L (15-37); Alkaline Phosphatase 86 U/L (46-116); BUN 18 mg/dL (7-18); Bilirubin, Total 0.4 mg/dL (0.2-1.0); CREATININE 0.9 mg/dL (0.70-1.30); Calcium 8.7 mg/dL (8.5-10.1); Chloride 102 mmol/L (98-107); Glucose 120 mg/dL (74-106); Potassium 3.4 mmol/L (3.5-5.1); Sodium 138 mmol/L (136-145); Total Protein 6.7 g/dL (6.4-8.2)
== END 2021-08-30 23:59 | disposition home or self-care (01) ==
LOC: INF 01:34
PROVIDERS: PCP Family Medicine; Visit Provider Internal Medicine
DX: C79.10 Secondary malignant neoplasm of unspecified urinary organs (principal); Z79.899 Other long term (current) drug therapy
CPT/HCPCS: 36415; 80053; 83735; 84100; 85025

== ENCOUNTER 2021-08-26 00:43 | Outpatient (CLI) | payer MEDICARE, BC, SELFPAY ==
[2021-08-26] MEDS: Breeza Beverage 473 ML BTL PO (12:13)
[2021-08-26] MEDS: Omnipaque 350 MG/ML 50 ML BTL PO (12:14)
--- NOTE | 2021-08-26 13:45 | DI.CT_ITS ---
Exam(s) CT CHEST/ABD/PEL W EXAM: CT CHEST/ABD/PEL W CLINICAL HISTORY: BLADDER CA,MASS LT GROIN,ON TREATMENT WITH DRUG THERAPY. TECHNIQUE: Imaging Protocol: Axial computed tomography images with coronal and sagittal reformatted images were created and reviewed CONTRAST MATERIAL: Intravenous: Omnipaque 350 Contrast volume:100 ml Oral: yes COMPARISON: CT CT CHEST/ABD/PEL W from 05/13/[address] CHEST/ABD/PEL W from 05/13/[address] ABDOMEN PELVIS W from 06/19/[address] ABDOMEN PELVIS W from 06/19/[address] BRAIN NECK CTA from 06/22/2021 FINDINGS: CHEST: Tracheobronchial tree: Patent where visualized. Mediastinum and [place] Marie: No dominant adenopathy or fluid collection. Pulmonary parenchyma: Significant interval increase in size of anterior left upper lobe mass, now marcie suring 13 x 15 millimeters compared to 8 millimeters in diameter on the previous exam. 8 millimeter right lower lobe nodule appears unchanged but is better seen on today's exam. There was motion on th e previous study. Stable small nodules at the bilateral lung bases. Stable right lower lobe calcifi ed granuloma. Pleura: No effusion or pneumothorax. Lymph nodes: Within normal limits. Aorta: Thoracic portion non-dilated. Atherosclerotic changes. Heart: Normal size. Coronary artery calcifications are seen. Bones: Degenerative changes, unremarkable for age. No lytic or blastic lesions. ABDOMEN: Liver: Normal density. No measurable mass. Gallbladder and biliary tract: No radiodense calculus or dilation. Pancreas: Normal density, no abnormal calcifications or inflammatory process. Spleen: Normal. Kidneys: Normal size, contour and axis. No radiodense stones or obstructive uropathy. Stable promine nce of the renal pelves. No masses seen. Adrenal glands: No masses seen. Aorta: Abdominal portion non-dilated. Lymph nodes: Within normal limits. Soft tissues: Unremarkable. PELVIS: Bladder: Status post cystectomy.. Right-sided ostomy and ileal conduit.. Bowel: Large quantity of stool in the colon. No obstruction or bowel wall thickening. Peritoneal cavity: No ascites, collection or mesenteric inflammatory response. Bones: Unremarkable for age.. Reproductive organs: Status post prostatectomy.. Soft tissues: Marked interval decrease in size of left groin lymph nodes. Multiple surgical clips a re again present. There is increased soft tissue density in the area of the surgical clips with a vi sible 2 centimeter nodular area of enhancement. A nodule measuring 11 millimeters is also seen. The p reviously noted inferior partially necrotic/cystic lesions are no longer seen. Previously noted intr amuscular nodules also show decreased in size. IMPRESSION: 1. Interval increase in size of left upper lobe nodule. 2. Marked interval decrease in size of left inguinal adenopathy and intramuscular nodular metastases. . . RADIATION DOSE DELIVERED: 1,474.99mGy.cm Total DLP DATA REPOSITORY: All CT scans at this facility are submitted to the National Radiology Data Registry (NRDR) Dose Index Registry (DIR) with the [employer] ([employer]). RADIATION OPTIMIZATION: All CT scans at this facility use at least one of these dose optimization te chniques: automated exposure control; mA and/or kV adjustment per patient size (includes targeted exa ms where dose is matched to clinical indication); or iterative reconstruction.
[2021-08-26] MEDS: Omnipaque 350 MG/ML 100 ML BTL IJ (13:47)
[2021-08-26] MEDS: Normal Saline - Diluent 50 ML VIAL IV (13:47)
== END 2021-08-26 01:03 ==
PROVIDERS: PCP Family Medicine; Visit Provider Nurse Practitioner Adult Health
DX: C79.10 Secondary malignant neoplasm of unspecified urinary organs (principal); R91.1 Solitary pulmonary nodule
CPT/HCPCS: 74177; 71260; J3490; Q9967

== ENCOUNTER → 2021-08-29 13:36 | Outpatient (BNVA) | payer MEDICARE, BC, SELFPAY | PROVIDERS: PCP Family Medicine; Referring Provider Family Medicine; Visit Provider Psychiatry & Neurology Neurology | DX: G40.109 Localization-related (focal) (partial) symptomatic epilepsy and epileptic syndromes with simple partial seizures, not intractable, without status epilepticus (principal); Z86.73 Personal history of transient ischemic attack (TIA), and cerebral infarction without residual deficits; I65.21 Occlusion and stenosis of right carotid artery; G62.9 Polyneuropathy, unspecified | CPT/HCPCS: 99214 ==

== ENCOUNTER 2021-09-27 02:20 | Outpatient (RCR) | payer MEDICARE, BC, SELFPAY ==
[2021-09-06 12:56] LABS: Abs Immature Grans 0.01 10^3/uL (0.0-0.06); Absolute Basophil Count 0.06 10^3/uL (0.0-0.2); Absolute Monocyte Count 0.57 10^3/uL (0.1-0.8); Absolute Neutrophil Count 3.52 10^3/uL (1.2-6.7); Eosinophils % 1.7; HCT 36.4 % (40.0-50.0); HGB 11.6 g/dL (13.5-17.5); Immature Grans % 0.2; Lymphocytes % 28.5; MCH 31.7 pg (27.0-33.0); MCHC 31.9 % (32.0-36.0); MCV 99.5 fL (80-95); MPV 8.9 fL (8.0-11.0); Monocytes % 9.6; Nucleated RBC 0 %; Platelet Count 188 10^3/uL (130-400); RBC 3.66 10^6/uL (4.36-5.78); RDW 16.8 % (11.8-14.1); WBC 5.96 10^3/uL (4.4-10.8)
[2021-09-06 13:08] LABS: ALT 21 U/L (16-63); AST 24 U/L (15-37); Albumin 3.3 g/dL (3.4-5.0); Alkaline Phosphatase 106 U/L (46-116); Anion Gap 3.9 mmol/L (3-11); BUN 20 mg/dL (7-18); Bilirubin, Total 0.5 mg/dL (0.2-1.0); CO2 32.1 mmol/L (21.0-32.0); CREATININE 0.9 mg/dL (0.70-1.30); Calcium 8.9 mg/dL (8.5-10.1); Chloride 104 mmol/L (98-107); Glucose 105 mg/dL (74-106); Potassium 4.6 mmol/L (3.5-5.1); Sodium 140 mmol/L (136-145); Total Protein 7.3 g/dL (6.4-8.2)
[2021-09-13 12:35] LABS: Abs Immature Grans 0.01 10^3/uL (0.0-0.06); Absolute Basophil Count 0.07 10^3/uL (0.0-0.2); Absolute Eosinophil Count 0.37 10^3/uL (0.0-0.7); Absolute Monocyte Count 0.63 10^3/uL (0.1-0.8); Absolute Neutrophil Count 3.36 10^3/uL (1.2-6.7); Basophils % 1.1; HCT 35.8 % (40.0-50.0); HGB 11.8 g/dL (13.5-17.5); Immature Grans % 0.2; Lymphocytes % 27.7; MCH 33.1 pg (27.0-33.0); MCV 100.6 fL (80-95); MPV 9.6 fL (8.0-11.0); Monocytes % 10.3; Neutrophils % 54.7; Nucleated RBC 0 %; Platelet Count 189 10^3/uL (130-400); RBC 3.56 10^6/uL (4.36-5.78); RDW 15.9 % (11.8-14.1); RDW-SD 59.6 fL; WBC 6.14 10^3/uL (4.4-10.8)
[2021-09-13 12:49] LABS: ALT 23 U/L (16-63); AST 24 U/L (15-37); Albumin 3.3 g/dL (3.4-5.0); Alkaline Phosphatase 98 U/L (46-116); Anion Gap 3.4 mmol/L (3-11); BUN 26 mg/dL (7-18); Bilirubin, Total 0.6 mg/dL (0.2-1.0); CO2 32.6 mmol/L (21.0-32.0); CREATININE 0.9 mg/dL (0.70-1.30); Calcium 9.1 mg/dL (8.5-10.1); Chloride 105 mmol/L (98-107); Glucose 106 mg/dL (74-106); Potassium 4.2 mmol/L (3.5-5.1); Sodium 141 mmol/L (136-145); Total Protein 7.5 g/dL (6.4-8.2)
[2021-09-20 12:32] LABS: Abs Immature Grans 0.02 10^3/uL (0.0-0.06); Absolute Basophil Count 0.05 10^3/uL (0.0-0.2); Absolute Eosinophil Count 0.43 10^3/uL (0.0-0.7); Absolute Neutrophil Count 3.81 10^3/uL (1.2-6.7); Basophils % 0.8; Eosinophils % 6.8; HCT 36.1 % (40.0-50.0); HGB 11.6 g/dL (13.5-17.5); Immature Grans % 0.3; Lymphocytes % 23.8; MCH 32.4 pg (27.0-33.0); MCHC 32.1 % (32.0-36.0); MCV 100.8 fL (80-95); MPV 9.3 fL (8.0-11.0); Monocytes % 7.9; Neutrophils % 60.4; Nucleated RBC 0 %; Platelet Count 206 10^3/uL (130-400); RBC 3.58 10^6/uL (4.36-5.78); RDW 15.8 % (11.8-14.1); RDW-SD 58.8 fL; WBC 6.31 10^3/uL (4.4-10.8)
[2021-09-20 12:44] LABS: ALT 22 U/L (16-63); AST 21 U/L (15-37); Albumin 3.3 g/dL (3.4-5.0); Alkaline Phosphatase 100 U/L (46-116); Anion Gap 3.4 mmol/L (3-11); BUN 28 mg/dL (7-18); Bilirubin, Total 0.5 mg/dL (0.2-1.0); CO2 33.6 mmol/L (21.0-32.0); Calcium 9.1 mg/dL (8.5-10.1); Chloride 105 mmol/L (98-107); Glucose 146 mg/dL (74-106); Potassium 4.1 mmol/L (3.5-5.1); Sodium 142 mmol/L (136-145); Total Protein 7.3 g/dL (6.4-8.2)
[2021-09-27 08:46] LABS: Abs Immature Grans 0.04 10^3/uL (0.0-0.06); Absolute Basophil Count 0.05 10^3/uL (0.0-0.2); Absolute Eosinophil Count 0.14 10^3/uL (0.0-0.7); Absolute Monocyte Count 0.82 10^3/uL (0.1-0.8); Absolute Neutrophil Count 8.22 10^3/uL (1.2-6.7); Basophils % 0.5; Eosinophils % 1.3; HCT 38.2 % (40.0-50.0); HGB 12.4 g/dL (13.5-17.5); Immature Grans % 0.4; Lymphocytes % 14.7; MCH 32.5 pg (27.0-33.0); MCHC 32.5 % (32.0-36.0); MCV 100.3 fL (80-95); MPV 8.9 fL (8.0-11.0); Monocytes % 7.5; Neutrophils % 75.6; Nucleated RBC 0 %; Platelet Count 217 10^3/uL (130-400); RBC 3.81 10^6/uL (4.36-5.78); RDW 14.9 % (11.8-14.1); WBC 10.87 10^3/uL (4.4-10.8)
[2021-09-27 09:01] LABS: ALT 27 U/L (16-63); AST 22 U/L (15-37); Albumin 3.3 g/dL (3.4-5.0); Alkaline Phosphatase 108 U/L (46-116); Anion Gap 7.5 mmol/L (3-11); BUN 22 mg/dL (7-18); Bilirubin, Total 0.5 mg/dL (0.2-1.0); CO2 30.5 mmol/L (21.0-32.0); CREATININE 0.9 mg/dL (0.70-1.30); Calcium 9.2 mg/dL (8.5-10.1); Chloride 103 mmol/L (98-107); Glucose 134 mg/dL (74-106); Potassium 4.2 mmol/L (3.5-5.1); Sodium 141 mmol/L (136-145); Total Protein 7.4 g/dL (6.4-8.2)
== END 2021-09-30 23:59 | disposition home or self-care (01) ==
LOC: INF 02:20
PROVIDERS: PCP Family Medicine; Visit Provider Internal Medicine
DX: C79.10 Secondary malignant neoplasm of unspecified urinary organs (principal)
CPT/HCPCS: 36415; 80053; 85025

== ENCOUNTER 2021-10-10 01:59 | Outpatient (CLI) | payer MEDICARE, BC, SELFPAY ==
--- NOTE | 2021-10-10 10:45 | DI.MRI_ITS ---
Exam(s) MR BRAIN WO/W EXAM: MR BRAIN WO/W CLINICAL HISTORY: SECONDARY MALIGNANT NEOPLASM OF BRAIN, C79.31. TECHNIQUE: Multiplanar multisequence MRI of the brain was performed. CONTRAST MATERIAL: IV Contrast: 16 ML of Dotarem contrast administered. COMPARISON: MR MR BRAIN WO/W from 06/23/2021 MR MR BRAIN WO/W from 08/18/2021 FINDINGS: VENTRICLES AND EXTRA AXIAL SPACES: Normal in size and morphology for the patient's age. HEMORRHAGE: None. CEREBRAL PARENCHYMA: No focus of restricted diffusion to suggest acute infarct. There has been furthe r increase in size of a peripherally enhancing lesion in the high right parietal lobe which now measu res 17 millimeters transverse by 14 millimeters AP by 19 millimeters cephalo caudad. There is now a large amount of surrounding edema with sulcal in effacement. No significant midline shift or impress ion on the ventricle. Other small or small areas of scattered T2 hyperintensities in the white matte r consistent with small-vessel disease are stable. No new masses are identified. MIDLINE SHIFT: None. BRAINSTEM/CEREBELLUM: Normal. VISUALIZED PARANASAL SINUSES/MASTOIDS: Mucous retention left maxillary sinus with improvement when co mpared with the previous exam. Improved aeration of remaining sinuses. Mastoid air cells are clear. OTHER FINDINGS: Vascular flow voids are intact. IMPRESSION: Significant interval increase in size of mass in the high left parietal region which now shows signif icant surrounding edema. DATA REPOSITORY:
[2021-10-10] MEDS: Normal Saline Flush 10 ML SYR IVP (11:02)
[2021-10-10] MEDS: Gadoterate meglumine 20 ML VIAL 16 ML IVP (11:03)
== END 2021-10-10 02:19 ==
PROVIDERS: PCP Family Medicine; Visit Provider Radiology Radiation Oncology
DX: C79.31 Secondary malignant neoplasm of brain (principal)
CPT/HCPCS: 70553

== ENCOUNTER 2021-10-26 01:03 | Outpatient (RCR) | payer MEDICARE, BC, SELFPAY ==
[2021-10-04 09:15] LABS: Abs Immature Grans 0.03 10^3/uL (0.0-0.06); Absolute Basophil Count 0.07 10^3/uL (0.0-0.2); Absolute Eosinophil Count 0.18 10^3/uL (0.0-0.7); Absolute Lymphocyte Count 1.54 10^3/uL (1.2-3.4); Absolute Monocyte Count 0.65 10^3/uL (0.1-0.8); Absolute Neutrophil Count 4.09 10^3/uL (1.2-6.7); Basophils % 1.1; Eosinophils % 2.7; HCT 36.5 % (40.0-50.0); HGB 11.9 g/dL (13.5-17.5); Immature Grans % 0.5; Lymphocytes % 23.5; MCH 32.8 pg (27.0-33.0); MCHC 32.6 % (32.0-36.0); MCV 100.6 fL (80-95); MPV 9.3 fL (8.0-11.0); Monocytes % 9.9; Neutrophils % 62.3; Nucleated RBC 0 %; Platelet Count 201 10^3/uL (130-400); RBC 3.63 10^6/uL (4.36-5.78); RDW 14.8 % (11.8-14.1); RDW-SD 54.9 fL; WBC 6.56 10^3/uL (4.4-10.8)
[2021-10-04 09:26] LABS: ALT 25 U/L (16-63); AST 27 U/L (15-37); Albumin 3.4 g/dL (3.4-5.0); Alkaline Phosphatase 97 U/L (46-116); Anion Gap 6.3 mmol/L (3-11); BUN 16 mg/dL (7-18); Bilirubin, Total 0.5 mg/dL (0.2-1.0); CO2 31.7 mmol/L (21.0-32.0); Chloride 104 mmol/L (98-107); Glucose 117 mg/dL (74-106); Potassium 3.6 mmol/L (3.5-5.1); Sodium 142 mmol/L (136-145); Total Protein 7.4 g/dL (6.4-8.2)
[2021-10-18 09:31] LABS: Abs Immature Grans 0.02 10^3/uL (0.0-0.06); Absolute Basophil Count 0.11 10^3/uL (0.0-0.2); Absolute Eosinophil Count 0.02 10^3/uL (0.0-0.7); Absolute Lymphocyte Count 1.51 10^3/uL (1.2-3.4); Absolute Monocyte Count 0.56 10^3/uL (0.1-0.8); Absolute Neutrophil Count 3.28 10^3/uL (1.2-6.7); Eosinophils % 0.4; HCT 35.8 % (40.0-50.0); Immature Grans % 0.4; Lymphocytes % 27.5; MCHC 33.5 % (32.0-36.0); MCV 98.4 fL (80-95); MPV 9.5 fL (8.0-11.0); Monocytes % 10.2; Neutrophils % 59.5; Nucleated RBC 0 %; Platelet Count 214 10^3/uL (130-400); RBC 3.64 10^6/uL (4.36-5.78); RDW 14.8 % (11.8-14.1); RDW-SD 52.6 fL
[2021-10-18 09:44] LABS: ALT 21 U/L (16-63); AST 23 U/L (15-37); Albumin 3.3 g/dL (3.4-5.0); Alkaline Phosphatase 97 U/L (46-116); Anion Gap 6.8 mmol/L (3-11); BUN 20 mg/dL (7-18); Bilirubin, Total 0.5 mg/dL (0.2-1.0); CO2 30.2 mmol/L (21.0-32.0); CREATININE 1.1 mg/dL (0.70-1.30); Calcium 9.2 mg/dL (8.5-10.1); Chloride 102 mmol/L (98-107); Glucose 121 mg/dL (74-106); Magnesium 1.7 mg/dL (1.8-2.4); Sodium 139 mmol/L (136-145); Total Protein 7.5 g/dL (6.4-8.2)
[2021-10-26 13:43] LABS: Abs Immature Grans 0.02 10^3/uL (0.0-0.06); Absolute Basophil Count 0.08 10^3/uL (0.0-0.2); Absolute Eosinophil Count 0.11 10^3/uL (0.0-0.7); Absolute Lymphocyte Count 1.76 10^3/uL (1.2-3.4); Absolute Neutrophil Count 3.72 10^3/uL (1.2-6.7); Basophils % 1.2; Eosinophils % 1.7; HCT 36.1 % (40.0-50.0); Immature Grans % 0.3; Lymphocytes % 27.1; MCH 32.6 pg (27.0-33.0); MCHC 33.2 % (32.0-36.0); MCV 98.1 fL (80-95); MPV 9.7 fL (8.0-11.0); Monocytes % 12.3; Neutrophils % 57.4; Nucleated RBC 0 %; Platelet Count 207 10^3/uL (130-400); RBC 3.68 10^6/uL (4.36-5.78); RDW 14.6 % (11.8-14.1); RDW-SD 52.3 fL; WBC 6.49 10^3/uL (4.4-10.8)
[2021-10-26 13:51] LABS: ALT 25 U/L (16-63); AST 27 U/L (15-37); Albumin 3.3 g/dL (3.4-5.0); Alkaline Phosphatase 116 U/L (46-116); BUN 21 mg/dL (7-18); Bilirubin, Total 0.4 mg/dL (0.2-1.0); Chloride 102 mmol/L (98-107); Glucose 122 mg/dL (74-106); Magnesium 1.9 mg/dL (1.8-2.4); Potassium 3.7 mmol/L (3.5-5.1); Sodium 140 mmol/L (136-145); Total Protein 7.3 g/dL (6.4-8.2)
== END 2021-10-31 23:59 | disposition home or self-care (01) ==
LOC: INF 01:03
PROVIDERS: PCP Family Medicine; Visit Provider Internal Medicine
DX: C79.10 Secondary malignant neoplasm of unspecified urinary organs (principal); Z79.899 Other long term (current) drug therapy
CPT/HCPCS: 36415; 80053; 83735; 85025